=== PATIENT | female | born 1955 ===

== ENCOUNTER 2017-07-09 18:21 | Inpatient (IN) | payer MEDICARE ==
[2017-07-09] MEDS ORDERED: Sodium Chloride 0.9% 1,000 ML IV ONE (18:41)
--- NOTE | 2017-07-09 18:49 | C.PDOC ---
History Of Present Illness 62-year-old female, presents to the emergency department with complaints of abdominal pain, nausea/vomiting and diarrhea x5 days. Patient denies any fevers , chest pain or shortness of breath. Time Seen by Provider: 07/09/17 18:38 Chief Complaint (Nursing): GI Problem History Per: Patient History/Exam Limitations: no limitations Onset/Duration Of Symptoms: Days Current Symptoms Are (Timing): Still Present Severity: Moderate Past Medical History Reviewed: Historical Data, Nursing Documentation, Vital Signs Vital Signs: Last Vital Signs Temp 98.1 F 07/14/17 10:00 Pulse 93 H 07/14/17 10:00 Resp 20 07/14/17 10:00 BP 128/75 07/14/17 10:00 Pulse Ox 96 07/14/17 10:00 - Medical History PMH: Anxiety, Depression, Post Traumatic Stress Disorder Family History: States: No Known Family Hx - Social History Hx Tobacco Use: Yes Hx Alcohol Use: Yes Hx Substance Use: No - Immunization History Hx Tetanus Toxoid Vaccination: No Hx Influenza Vaccination: No Hx Pneumococcal Vaccination: No Review Of Systems Constitutional: Negative for: Fever, Chills Cardiovascular: Negative for: Chest Pain Respiratory: Negative for: Shortness of Breath Gastrointestinal: Positive for: Nausea, Vomiting, Abdominal Pain, Diarrhea Musculoskeletal: Negative for: Back Pain Skin: Negative for: Rash Neurological: Negative for: Weakness, Numbness, Headache, Dizziness Physical Exam - Physical Exam Appears: Non-toxic, No Acute Distress Skin: Warm, Dry, No Rash Head: Normacephalic Eye(s): bilateral: Normal Inspection, PERRL Nose: Normal Oral Mucosa: Moist Lips: Normal Appearing Neck: Normal ROM Cardiovascular: Rhythm Regular, No Murmur Respiratory: Normal Breath Sounds, No Accessory Muscle Use Gastrointestinal/Abdominal: Soft, Tenderness (epigastric), No Guarding, No Rebound Extremity: Normal ROM, No Deformity, No Swelling Neurological/Psych: Oriented x3, Normal Speech ED Course And Treatment - Laboratory Results Result Diagrams: 07/14/17 07:15 07/14/17 07:15 O2 Sat by Pulse Oximetry: 97 (RA) Pulse Ox Interpretation: Normal Medical Decision Making Medical Decision Making: ekg nsr [address] t wave changes 21:45 - pages Dr. Chawla 22:00- Spoke with Dr. Chawla will obs for hypok 22:10 - Spoke with vice president of compliance Disposition - Disposition Disposition: HOSPITALIZED Disposition Time: 02:00 Condition: STABLE - Clinical Impression Clinical Impression: Abdominal pain, Hypokalemia - Scribe Statement The provider has reviewed the documentation as recorded by the Scribe (Chante Pappas) All medical record entries made by the Scribe were at my direction and personally dictated by me. I have reviewed the chart and agree that the record accurately reflects my personal performance of the history, physical exam, medical decision making, and the department course for this patient. I have also personally directed, reviewed, and agree with the discharge instructions and disposition. Decision To Admit - . Admitting Physician: Mary Chawla Patient Diagnosis: Abdominal pain, Hypokalemia
[2017-07-09] MEDS ORDERED: Sodium Chloride 0.9% 1,000 ML ONE (19:11)
[2017-07-09 19:16] LABS: BASO % 0.4 % (0.0-2.0); EOS # 0.1 K/uL (0.0-0.7); EOS % 0.8 % (0.0-4.0); HEMOGLOBIN 15.2 g/dL (11.0-16.0); LYMPH # 2.6 K/uL (1.0-4.3); LYMPH % 21.2 % (20.0-40.0); MEAN CELL VOLUME 103.2 fL (81.0-99.0); MEAN CORPUSCULAR HEMOGLOBIN 36.2 pg (27.0-31.0); MEAN CORPUSCULAR HGB CONC 35.1 g/dL (33.0-37.0); MEAN PLATELET VOLUME 8.7 fL (7.2-11.7); MONO # 1.5 K/uL (0.0-0.8); MONO % 12.4 % (0.0-10.0); NEUT % 65.2 % (50.0-75.0); NRBC % 0.1 % (0.0-2.0); RBC 4.2 Mil/uL (3.80-5.20); RED CELL DISTRIBUTION WIDTH 14.2 % (11.5-14.5); WHITE BLOOD COUNT 12.3 K/uL (4.8-10.8)
[2017-07-09 19:28] LABS: PROTHROMBIN TIME 10.9 SECONDS (9.7-12.2)
[2017-07-09 19:53] LABS: SQUAMOUS EPITHIAL < 1 /hpf (0-5); URINE BILIRUBIN NEGATIVE (NEGATIVE); URINE BLOOD NEGATIVE (NEGATIVE); URINE CLARITY Clear (Clear); URINE COLOR Yellow (YELLOW); URINE GLUCOSE (UA) NORMAL (Normal); URINE LEUKOCYTE ESTERASE NEG Leu/uL (Negative); URINE PROTEIN NEGATIVE (NEGATIVE); URINE UROBILINOGEN NORMAL mg/dL (0.2-1.0)
[2017-07-09 19:55] LABS: ALB/GLOB RATIO 1.2 (1.0-2.1); ALBUMIN 3.6 g/dL (3.5-5.0); ALT/SGPT 51 U/L (9-52); AST/SGOT 66 U/L (14-36); BLOOD UREA NITROGEN 6 mg/dL (7-17); CALCIUM 8.3 mg/dl (8.6-10.4); GFR AFRICAN-AMERICAN > 60; GFR NON-AFRICAN AMERICAN > 60; LIPASE 57 U/L (23-300)
[2017-07-09] MEDS ORDERED: Potassium Chloride 20 mEq ER Tab PO STA (19:59)
[2017-07-09] MEDS ORDERED: Potassium Chloride 20 mEq ER Tab PO ONE (20:05)
--- NOTE | 2017-07-09 21:17 | US ---
EXAM: US Abdomen Complete CLINICAL HISTORY: 62 years old, female; Pain; Abdominal pain; Generalized; Additional info: Upper abd pain TECHNIQUE: Real-time ultrasound of the abdomen (complete) with image documentation. COMPARISON: No relevant prior studies available. FINDINGS: Limitations: Body habitus. Liver: Enlarged, 23.0 cm. Fatty infiltration. No mass. No intrahepatic ductal dilatation. Gallbladder: Gallstones. No wall thickening. No pericholecystic fluid. No sonographic Cottrell's sign. Common bile duct: No dilatation. No stones. Pancreas: Unremarkable as visualized. Kidneys: Normal echogenicity. No hydronephrosis. Spleen: No splenomegaly. Aorta: Unremarkable. No aneurysm. Inferior vena cava: Unremarkable. Free fluid: No significant free fluid. IMPRESSION: 1. Cholelithiasis. 2. Incidental/non-acute findings are described above.
--- NOTE | 2017-07-09 22:48 | CP.PCM.HP ---
History of Present Illness - History of Present Illness History of Present Illness: COMPREHENSIVE HISTORY & PHYSICAL EXAM HPI Patient presented to the hospital with 2 week history of nausea vomiting diarrhea and right upper quadrant pain. Patient was evaluated in the [facility] Emergency Room and the ultrasound shows cholelithiasis with no pericolic fluid. Pancreas was also normal. WBC count was 12,000 and patient was admitted for possible acute cholecystitis Pt has lost 50 pounds in the last 1 year PAST HIST. History of depression and Seroquel. No history of diabetes hypertension. PERSONAL HIST: Smoking. N Alcohol. N Allergy N Travel_- . FAMILY HIST : ROS : Constitutional: Negative for weight change, chills, night sweats, fatigue Eyes : Negative for redness, swelling, itching, discharge, vision changes, blurry vision, double vision, glaucoma, cataracts, Ears: Negative for hearing loss, ringing, , tinnitus, vertigo Nose: Negative for rhinorrhea, stuffiness, sniffing, itching, postnasal drip, discoloration, nasal congestion and epistaxis. Throat: Negative for throat clearing, sore throat, hoarseness, difficulty swallowing and difficulty speaking. Respiratory: Negative for cough, chest tightness, sputum or phlegm, chronic cough, hemoptysis, wheezing, snoring at night, pleuritic chest pain and daytime somnolence. Cardiovascular: Negative for chest pain, palpitations, orthopnea, PND, Edema of legs, leg cramps, angina, claudication, , irregular heartbeat, Neurology: Negative for irritability, muscle weakness, numbness and tingling, seizures, tremors, migraines, slurred speech, syncope, memory loss, mood changes , recurrent headaches Gastrointestinal: Negative for difficulty swallowing, diarrhea, constipation, black stools, rectal bleeding, nausea, flatulence, reflux, poor appetite, changes in bowel habits Genitourinary: Negative for frequent urination, hematuria, discharge, incontinence, urinary retention, frequent UTI, Psychiatric : Negative for depression, anxiety/panic, suicidal tendencies, Musculoskeletal: Negative for swollen joints, back pain, , neck pain, morning stiffness of joints, . Skin: Negative for rash, ulcers, itching, dry skin and pigmented lesions. P/E: Constitutional: Appears stated age and in no apparent distress. Head: Normocephalic. Ears: External ear canals patent without inflammation. Tympanic membranes intact with normal light reflex and landmark. Eyes: Pupils are central, bilaterally equal, symmetrical and reacts to light with normal movements and no icterus or pallor. Nose: External nares are patent. Mucosa is pink Mouth-Throat: Good general appearance and condition. No post-pharyngeal/oropharyngeal erythema and tonsillar hypertrophy. Good dental hygiene. Neck-Lymphatic: Neck is supple with normal ROM, no thyromegaly, lymph nodes or masses. JVD is normal with no carotid bruit. Lungs: Clear to percussion and auscultation with bilateral normal air entry. Cardiovascular: S1 and S2 are normal with no murmurs, gallops and rub. GI Exam: No hepatomegaly. Abdomen is soft and tender. No Organomegaly , masses or hernias are evident and bowel sounds are normal and active. Neurology: Higher function and all cranial nerves intact, with no gross motor or sensory deficit. Superficial and deep reflexes are normal with downwards planters. No cerebellar deficit with normal gait. Musculoskeletal: No tender spots with normal curvature of the spine with no swelling or restricted ROM of the small and large joints. Extremities: Homans sign absent. Intact pulses with no pitting edema, calf tenderness or skin color changes. Skin: No rash, eruptions or abnormal skin pigmentation LAB/RADIOLOGY: ASSESMENT : Rule out acute cholecystitis. loss of weight unintentional Rule out infectious diarrhea Plan: IV fluids and HIDA scan. Surgical evaluation. Past Patient History - Past Social History Smoking Status: Light Smoker < 10 Cigarettes Daily - PSYCHIATRIC Hx Anxiety: Yes Hx Depression: Yes Hx Post Traumatic Stress Disorder: Yes Hx Substance Use: No - ANESTHESIA Hx Anesthesia: No Hx Anesthesia Reactions: No Meds Allergies/Adverse Reactions: Allergies Allergy/AdvReac Type Severity Reaction Status Date / Time shrimp Allergy SWELLING Verified 07/10/17 07:05 Results - Vital Signs Recent Vital Signs: Last Vital Signs Temp 98.6 F 07/09/17 18:28 Pulse 111 H 07/09/17 18:28 Resp 20 07/09/17 18:28 BP 129/90 07/09/17 18:28 Pulse Ox 97 07/09/17 22:21 - Labs Result Diagrams: 07/10/17 11:20 07/10/17 11:20 Labs: Laboratory Results - last 24 hr 07/09/17 07/09/17 07/09/17 19:09 19:09 19:09 WBC 12.3 H RBC 4.20 Hgb 15.2 Hct 43.4 MCV 103.2 H MCH 36.2 H MCHC 35.1 RDW 14.2 Plt Count 256 MPV 8.7 Neut % (Auto) 65.2 Lymph % (Auto) 21.2 [place] % (Auto) 12.4 H Eos % (Auto) 0.8 Baso % (Auto) 0.4 Neut # (Auto) 8.0 H Lymph # (Auto) 2.6 [place] # (Auto) 1.5 H Eos # (Auto) 0.1 Baso # (Auto) 0.0 PT 10.9 INR 1.0 APTT 31 Sodium 136 Potassium 2.5 L* Chloride 93 L Carbon Dioxide 29 Anion Gap 15 BUN 6 L Creatinine 0.5 L Est GFR ( Amer) > 60 Est GFR (Non-Af Amer) > 60 Random Glucose 108 H Calcium 8.3 L Total Bilirubin 1.2 AST 66 H ALT 51 Alkaline Phosphatase 131 H Total Protein 6.5 Albumin 3.6 Globulin 2.9 Albumin/Globulin Ratio 1.2 Lipase 57 Urine Color Urine Clarity Urine pH Ur Specific [place] Urine Protein Urine Glucose (UA) Urine Ketones Urine Blood Urine Nitrate Urine Bilirubin Urine Urobilinogen Ur Leukocyte Esterase Urine WBC (Auto) Ur Squamous Epith Cells 07/09/17 19:45 WBC RBC Hgb Hct MCV MCH MCHC RDW Plt Count MPV Neut % (Auto) Lymph % (Auto) [place] % (Auto) Eos % (Auto) Baso % (Auto) Neut # (Auto) Lymph # (Auto) [place] # (Auto) Eos # (Auto) Baso # (Auto) PT INR APTT Sodium Potassium Chloride Carbon Dioxide Anion Gap BUN Creatinine Est GFR ( Amer) Est GFR (Non-Af Amer) Random Glucose Calcium Total Bilirubin AST ALT Alkaline Phosphatase Total Protein Albumin Globulin Albumin/Globulin Ratio Lipase Urine Color Yellow Urine Clarity Clear Urine pH 7.0 Ur Specific [place] 1.001 L Urine Protein Negative Urine Glucose (UA) Normal Urine Ketones Negative Urine Blood Negative Urine Nitrate Negative Urine Bilirubin Negative Urine Urobilinogen Normal Ur Leukocyte Esterase Neg Urine WBC (Auto) < 1 Ur Squamous Epith Cells < 1
[2017-07-09] MEDS ORDERED: Dextrose 5%/0.45% NS 1,000 ML IV ONE (23:00)
[2017-07-09] MEDS: Dextrose 5%/0.45% NS 1,000 ML IV SCH (23:05)
--- NOTE | 2017-07-09 23:32 | CP.PCM.CON ---
<Angel Luis Fuentes - Last Filed: 07/09/17 23:43> History of Present Illness - History of Present Illness History of Present Illness: General surgery consult for Dr. Andre Pt is a 62 y/o female with a PMH of anxiety and depression who presents with a 5 day history of non radiating epigastric abdominal pain, non- bloody non-bilious vomiting and non-bloody diarrhea without known precipitating incident. She is unable to keep down any foods or liquids without feeling nauseous and then having vomiting with diarrhea at the same time. She reports similar episodes in the past over the last year not lasting more than one day. The onset of overall symptoms is not food related, though her vomiting and diarrhea is exacerbated by food. She reports a decrease in appetite resulting in a 50 pound weight loss over the past year. She denies recent illness as well as fever and chills at home. PMH: Anxiety, Depression PSH: Repair of minscal tear 2015, Appendectomy (Exlap) Meds: Seroquil All: NKDA Social: 1 shot rebecca per night, 6.5 pack years, no drugs Review of Systems - Constitutional Constitutional: Weight Loss. absent: Chills, Fever - EENT Eyes: Blurred Vision - Cardiovascular Cardiovascular: absent: Chest Pain, Palpitations - Respiratory Respiratory: absent: Dyspnea, Hemoptysis - Gastrointestinal Gastrointestinal: Abdominal Pain, Diarrhea, Vomiting. absent: Heartburn, Hematemesis, Hematochezia - Neurological Neurological: Tingling. absent: Dizziness, Numbness - Psychiatric Psychiatric: Anxiety Past Patient History - Past Social History Smoking Status: Light Smoker < 10 Cigarettes Daily Alcohol: < 2 Drinks/Day Drugs: Denies - PSYCHIATRIC Hx Anxiety: Yes Hx Depression: Yes Hx Post Traumatic Stress Disorder: Yes Hx Substance Use: No - ANESTHESIA Hx Anesthesia: No Hx Anesthesia Reactions: No Meds Allergies/Adverse Reactions: Allergies Allergy/AdvReac Type Severity Reaction Status Date / Time shrimp Allergy SWELLING Verified 07/10/17 07:05 - Medications Medications: Current Medications Heparin Sodium (Porcine) (Heparin) 5,000 units SC Q12 [facility] Dextrose/Sodium Chloride (Dextrose 5%/0.45% Ns 1000 Ml) 1,000 mls @ 120 mls/hr IV .Q8H20M [facility] Stop: 07/10/17 22:46 Last Admin: 07/09/17 23:05 Dose: 120 mls/hr Ondansetron HCl (Zofran Inj) 4 mg IVP Q6H PRN PRN Reason: NAUSEA/VOMITTING Quetiapine Fumarate (Seroquel) 100 mg PO HS ÁLVARO Physical Exam - Constitutional Appears: Non-toxic, No Acute Distress - Head Exam Head Exam: ATRAUMATIC, NORMOCEPHALIC - Eye Exam Eye Exam: EOMI, Normal appearance - ENT Exam ENT Exam: Mucous Membranes Moist - Respiratory Exam Respiratory Exam: NORMAL BREATHING PATTERN - Cardiovascular Exam Cardiovascular Exam: +S1, +S2 - GI/Abdominal Exam GI & Abdominal Exam: Normal Bowel Sounds, Soft, Tenderness. absent: Distended, Firm, Guarding, Hernia, Rebound, Rigid - Neurological Exam Neurological exam: Alert, Oriented x3 - Psychiatric Exam Psychiatric exam: Normal Affect, Normal Mood - Skin Skin Exam: Dry, Intact Results - Vital Signs Recent Vital Signs: Last Vital Signs Temp 98.6 F 07/09/17 18:28 Pulse 111 H 07/09/17 18:28 Resp 20 07/09/17 18:28 BP 129/90 07/09/17 18:28 Pulse Ox 97 07/09/17 22:21 - Labs Result Diagrams: 07/09/17 19:09 07/09/17 19:09 Labs: Laboratory Results - last 24 hr 07/09/17 07/09/17 07/09/17 19:09 19:09 19:09 WBC 12.3 H RBC 4.20 Hgb 15.2 Hct 43.4 MCV 103.2 H MCH 36.2 H MCHC 35.1 RDW 14.2 Plt Count 256 MPV 8.7 Neut % (Auto) 65.2 Lymph % (Auto) 21.2 [place] % (Auto) 12.4 H Eos % (Auto) 0.8 Baso % (Auto) 0.4 Neut # (Auto) 8.0 H Lymph # (Auto) 2.6 [place] # (Auto) 1.5 H Eos # (Auto) 0.1 Baso # (Auto) 0.0 PT 10.9 INR 1.0 APTT 31 Sodium 136 Potassium 2.5 L* Chloride 93 L Carbon Dioxide 29 Anion Gap 15 BUN 6 L Creatinine 0.5 L Est GFR ( Amer) > 60 Est GFR (Non-Af Amer) > 60 Random Glucose 108 H Calcium 8.3 L Total Bilirubin 1.2 AST 66 H ALT 51 Alkaline Phosphatase 131 H Total Protein 6.5 Albumin 3.6 Globulin 2.9 Albumin/Globulin Ratio 1.2 Lipase 57 Urine Color Urine Clarity Urine pH Ur Specific [place] Urine Protein Urine Glucose (UA) Urine Ketones Urine Blood Urine Nitrate Urine Bilirubin Urine Urobilinogen Ur Leukocyte Esterase Urine WBC (Auto) Ur Squamous Epith Cells 07/09/17 19:45 WBC RBC Hgb Hct MCV MCH MCHC RDW Plt Count MPV Neut % (Auto) Lymph % (Auto) [place] % (Auto) Eos % (Auto) Baso % (Auto) Neut # (Auto) Lymph # (Auto) [place] # (Auto) Eos # (Auto) Baso # (Auto) PT INR APTT Sodium Potassium Chloride Carbon Dioxide Anion Gap BUN Creatinine Est GFR ( Amer) Est GFR (Non-Af Amer) Random Glucose Calcium Total Bilirubin AST ALT Alkaline Phosphatase Total Protein Albumin Globulin Albumin/Globulin Ratio Lipase Urine Color Yellow Urine Clarity Clear Urine pH 7.0 Ur Specific [place] 1.001 L Urine Protein Negative Urine Glucose (UA) Normal Urine Ketones Negative Urine Blood Negative Urine Nitrate Negative Urine Bilirubin Negative Urine Urobilinogen Normal Ur Leukocyte Esterase Neg Urine WBC (Auto) < 1 Ur Squamous Epith Cells < 1 Assessment & Plan - Assessment and Plan (Free Text) Assessment: 61F with abdominal pain, nausea and vomiting, and cholelithiasis Vital signs stable Gallbladder wall 2mm, CBD 5mm, no pericholecystic fluid, gallstones present AST/ALT 66/51, Alk Phos 131 and lipase 57 Plan: 1. Abdominal flat plate 2. Recommend CT with PO and IV contrast 3. NG tube if nausea and vomiting persist 4. NPO 5. IV fluids 6. Serial abdominal exams 7. Recommend outpatient workup for unexplained weight loss 8. Recommend GI evaluation for possible GERD-like symptoms 9. Will continue to follow d/w Dr. Thai Fuentes <Pollo Andre - Last Filed: 07/11/17 12:57> Meds - Medications Medications: Current Medications Heparin Sodium (Porcine) (Heparin) 5,000 units SC Q12 [facility] Last Admin: 07/11/17 09:19 Dose: Not Given Metronidazole 250 mg/ (Miscellaneous) 50 mls @ 100 mls/hr IVPB Q8 [facility] PRN Reason: Protocol Last Admin: 07/11/17 05:50 Dose: 100 mls/hr Ondansetron HCl (Zofran Inj) 4 mg IVP Q6H PRN PRN Reason: NAUSEA/VOMITTING Last Admin: 07/11/17 11:55 Dose: 4 mg Potassium Chloride (Potassium Chloride Oral Soln) 40 meq PO Q4H ÁLVARO Stop: 07/11/17 15:31 Last Admin: 07/11/17 11:57 Dose: 40 meq Quetiapine Fumarate (Seroquel) 100 mg PO HS ÁLVARO Last Admin: 07/10/17 21:28 Dose: 100 mg Results - Vital Signs Recent Vital Signs: Last Vital Signs Temp 97.7 F 07/11/17 07:01 Pulse 80 07/11/17 07:01 Resp 20 07/11/17 07:01 BP 101/66 07/11/17 07:01 Pulse Ox 95 07/11/17 07:01 - Labs Result Diagrams: 07/10/17 11:20 07/11/17 08:38 Labs: Laboratory Results - last 24 hr 07/10/17 07/11/17 07/11/17 16:49 08:38 08:38 Sodium 143 Potassium 3.1 L Chloride 108 H Carbon Dioxide 28 Anion Gap 10 BUN < 2 L Creatinine 0.5 L Est GFR ( Amer) > 60 Est GFR (Non-Af Amer) > 60 Random Glucose 81 Calcium 8.3 L Magnesium 1.5 L Iron 102 TIBC 221 L % Saturation 46 Ferritin Vitamin B12 Hepatitis A IgM Ab Negative Hep Bs Antigen Negative Hep B Core IgM Ab Negative Hepatitis C Antibody Negative HIV 1&2 Antibody Screen 07/11/17 07/11/17 08:38 08:38 Sodium Potassium Chloride Carbon Dioxide Anion Gap BUN Creatinine Est GFR ( Amer) Est GFR (Non-Af Amer) Random Glucose Calcium Magnesium Iron 88 TIBC 215 L % Saturation Ferritin 383.0 Vitamin B12 > 1000 H Hepatitis A IgM Ab Hep Bs Antigen Hep B Core IgM Ab Hepatitis C Antibody Negative HIV 1&2 Antibody Screen Negative Assessment & Plan - Assessment and Plan (Free Text) Plan: I personally saw and examined the patient independent of the resident staff on and agree with the above assessment and plan while awaiting further imaging studies as above. 62 F with post prandial epigastric pain, started 5 days prior to admission. Pain is dull like pressure sensation, 0/10 at rest, 7/ 10 15-20minutes after meals; associated with nausea, emesis and food aversion. Several episodes of diarrhea as well. Emesis improves pain. Has had similar events in last 10 years, 1x every couple of months, would go away on its own after 24 hours or so. Denies any hx of peptic ulcers, GE reflux, aspiration, or asthma/cough. Does state that she occasional has dysphagia. Never sought medical evaluation. 60 lb weightloss in last 1 year. I personally reviewed all available diagnostic images and reports including, abd US, CT AP, and HIDA scan - Cholelithiasis on US and but no evidence of acute cholecystitis or choledocholithiasis. HIDA scan also normal, ruling out biliary dyskinesia or obstruction. CT scan does show several areas of colitis including right and TV which could be attributing to symptoms. Cont. tx for colitis and advance diet as tolerated. Needs screening colonoscopy and would recommend EGD as well. I discussed with the patient that we have to be sure that the gallbladder is the source of her symptomas before we would consider surgical removal. I also explained that a large percentage of people do have gallstones present, but not all require cholecystectomy. Only those who become symptomatic from the stones should have the gallbladder removed. She understands the treatment plan and will follow up with me as an outpatient AFTER her GI workup is complete. - Date & Time Date: 07/10/17
[2017-07-09] MEDS ORDERED: Lactated Ringer's 1,000 ML IV SCH (23:45)
--- NOTE | 2017-07-10 07:14 | RAD ---
HISTORY: Abdominal Pain COMPARISON: No prior. FINDINGS: BOWEL: Nonobstructive bowel gas pattern appreciated. No demonstrated free intraperitoneal gas. Bowel loops are interposed into the liver in the right hemidiaphragm. No suspicious abnormal intra-abdominal calcifications identified. BONES: Normal. OTHER FINDINGS: None. IMPRESSION: Nonobstructive bowel gas pattern evident. No free intraperitoneal gas demonstrated.
[2017-07-10] MEDS: Dextrose 5%/0.45% NS 1,000 ML IV SCH ×2 (08:11→15:10)
--- NOTE | 2017-07-10 08:26 | CP.PCM.PN ---
Subjective - Date & Time of Evaluation Date of Evaluation: 07/10/17 Time of Evaluation: 06:20 - Subjective Subjective: Surgery- Dr. Andre Patient seen and examined at bedside this AM. complaining of continued nausea, non-bloody non-bilious vomiting, and diarrhea. Currently states no abdominal pain. Of note pt has >30lb unintentional weight loss over the last year. Family hx of IBS. Pt denies having colonoscopy. Denies fevers, chills, chest pain, shortness of breath Objective - Vital Signs/Intake and Output Vital Signs (last 24 hours): Temp Pulse Resp BP Pulse Ox 98.5 F 89 20 101/69 96 07/10/17 01:00 07/10/17 01:00 07/10/17 01:00 07/10/17 01:00 07/10/17 01:00 - Medications Medications: Current Medications Heparin Sodium (Porcine) (Heparin) 5,000 units SC Q12 [facility] Dextrose/Sodium Chloride (Dextrose 5%/0.45% Ns 1000 Ml) 1,000 mls @ 120 mls/hr IV .Q8H20M [facility] Stop: 07/10/17 22:46 Last Admin: 07/10/17 08:11 Dose: 120 mls/hr Ondansetron HCl (Zofran Inj) 4 mg IVP Q6H PRN PRN Reason: NAUSEA/VOMITTING Last Admin: 07/10/17 08:11 Dose: 4 mg Quetiapine Fumarate (Seroquel) 100 mg PO HS [facility] Last Admin: 07/09/17 23:35 Dose: 100 mg - Labs Labs: 07/09/17 19:09 07/09/17 19:09 PT 10.9 SECONDS (9.7-12.2) 07/09/17 19:09 INR 1.0 07/09/17 19:09 APTT 31 SECONDS (21-34) 07/09/17 19:09 - Constitutional Appears: Non-toxic, No Acute Distress - Head Exam Head Exam: ATRAUMATIC - Eye Exam Eye Exam: EOMI. absent: Scleral icterus - ENT Exam ENT Exam: Mucous Membranes Moist - Respiratory Exam Respiratory Exam: NORMAL BREATHING PATTERN. absent: Accessory Muscle Use, Respiratory Distress - Cardiovascular Exam Cardiovascular Exam: +S1, +S2. absent: Bradycardia, Tachycardia - GI/Abdominal Exam GI & Abdominal Exam: Soft. absent: Distended, Firm, Guarding, Rigid, Tenderness Additional comments: Phanenstiel incision C/D/I - Extremities Exam Extremities Exam: Normal Inspection. absent: Calf Tenderness - Neurological Exam Neurological Exam: Alert, Awake, Oriented x3 - Skin Skin Exam: Intact, Warm Assessment and Plan - Assessment and Plan (Free Text) Assessment: 62F w/ abdominal pain, nausea, vomiting, cholelithiasis noted on imaging. Plan: - recommend GI consult- possible EGD/colonoscopy - anti-emetic PRN - CT w/ PO and IV contrast - HIDA in AM - will d/w Dr. Andre surgical attending PGY1
[2017-07-10] MEDS ORDERED: Iohexol 240 (50 ml) PO ONE (10:00)
--- NOTE | 2017-07-10 10:42 | CP.PCM.CON ---
<Mira Andre - Last Filed: 07/10/17 11:54> History of Present Illness - History of Present Illness History of Present Illness: PGY4 Initial Gi Consult Destiny Woodard is a 62F w/ hx of anxiety and depression who presents with a 5 day history of non radiating epigastric abdominal pain, non-bloody non- bilious vomiting and non-bloody diarrhea. Pt states that her onset of symptoms was around 1-2 years ago. She noted that her symptoms were initially intermittent but for the past 3 weeks have progressively worsened. She notes states that her last significant mean was 2 weeks ago. Everytime she ingests any solid or liquid, she notes nausea and immediate vomiting. She has also endorsed diarrhea for the last 3 weeks. She notes thhat it is loose and watery. She has 3-4 BM daily. Denies any melena or BRBPR. She states that she had a 50lb weightloss in the past year. Never had a colonoscopy or endoscopy. Abd u/s revealed cholelithiasis and no CBD chances. PMH: Anxiety, Depression PSH: Repair of minscal tear 2016, Appendectomy 1980s(Exlap) Social: 1 shot rebecca per night, 6.5 pack years, no drugs Family Hx: reviewed; denies any GI related malignancies ROS: 12 point ROS conducted, neg other than above Past Patient History - Past Medical History & Family History Past Medical History?: Yes - Past Social History Smoking Status: Current Some Days Smoker - CARDIAC Hx Cardiac Disorders: No Hx Angina: No Hx Atrial Fibrillation: No Hx Cardia Arrhythmia: No Hx Circulatory Problems: No Hx Congestive Heart Failure: No Hx Heart Attack: No Hx Heart Murmur: No Hx Heart Transplant: No Hx Hypercholesterolemia: No Hx Hypertension: No Hx Hypotension: No Hx Internal Defibrillator: No Hx Mitral Valve Prolapse: No Hx Pacemaker: No Hx Peripheral Edema: No Hx Peripheral Vascular Disease: No - PULMONARY Hx Respiratory Disorders: No - NEUROLOGICAL Hx Neurological Disorder: No - HEENT Hx HEENT Problems: No Other/Comment: Wears Eyeglasses for reading - RENAL Hx Chronic Kidney Disease: No - ENDOCRINE/METABOLIC Hx Endocrine Disorders: No - HEMATOLOGICAL/ONCOLOGICAL Hx Blood Disorders: Yes Hx Anemia: Yes - INTEGUMENTARY Hx Dermatological Problems: No - MUSCULOSKELETAL/RHEUMATOLOGICAL Hx Musculoskeletal Disorders: Yes Hx Falls: No Hx Herniated Disk: Yes (Claimed with 3 herniated disc on the left) - GASTROINTESTINAL Hx Gastrointestinal Disorders: No - GENITOURINARY/GYNECOLOGICAL Hx Genitourinary Disorders: No - PSYCHIATRIC Hx Psychophysiologic Disorder: Yes Hx Anxiety: Yes Hx Depression: Yes Hx Post Traumatic Stress Disorder: Yes Hx Substance Use: No - SURGICAL HISTORY Hx Surgeries: Yes Hx Arteriovenous Shunt: Yes () Hx Orthopedic Surgery: Yes (Torn meniscus R foot) - ANESTHESIA Hx Anesthesia: Yes Hx Anesthesia Reactions: No Hx Malignant Hyperthermia: No Has any member of the family had a problem w/ anesthesia?: No Meds Allergies/Adverse Reactions: Allergies Allergy/AdvReac Type Severity Reaction Status Date / Time shrimp Allergy SWELLING Verified 07/10/17 07:05 - Medications Medications: Current Medications Heparin Sodium (Porcine) (Heparin) 5,000 units SC Q12 [facility] Dextrose/Sodium Chloride (Dextrose 5%/0.45% Ns 1000 Ml) 1,000 mls @ 120 mls/hr IV .Q8H20M [facility] Stop: 07/10/17 22:46 Last Admin: 07/10/17 08:11 Dose: 120 mls/hr Ondansetron HCl (Zofran Inj) 4 mg IVP Q6H PRN PRN Reason: NAUSEA/VOMITTING Last Admin: 07/10/17 08:11 Dose: 4 mg Quetiapine Fumarate (Seroquel) 100 mg PO HS [facility] Last Admin: 07/09/17 23:35 Dose: 100 mg Physical Exam - Constitutional Appears: Well, No Acute Distress - Head Exam Head Exam: ATRAUMATIC, NORMOCEPHALIC - Eye Exam Eye Exam: Normal appearance - ENT Exam ENT Exam: Mucous Membranes Moist, Normal Exam - Neck Exam Neck exam: Positive for: Normal Inspection - Respiratory Exam Respiratory Exam: Clear to Auscultation Bilateral, NORMAL BREATHING PATTERN. absent: Rales, Rhonchi, Wheezes, Respiratory Distress - Cardiovascular Exam Cardiovascular Exam: REGULAR RHYTHM, +S1, +S2 - GI/Abdominal Exam GI & Abdominal Exam: Normal Bowel Sounds, Soft, Tenderness (epugastric). absent : Diminished Bowel Sounds, Distended, Firm, Guarding, Organomegaly, Rebound, Rigid - Extremities Exam Extremities exam: Negative for: joint swelling, pedal edema - Back Exam Back exam: NORMAL INSPECTION - Neurological Exam Neurological exam: Alert, Oriented x3 - Psychiatric Exam Psychiatric exam: Normal Affect, Normal Mood - Skin Skin Exam: Dry, Intact, Normal Color, Warm Results - Vital Signs Recent Vital Signs: Last Vital Signs Temp 98.2 F 07/10/17 09:16 Pulse 84 07/10/17 09:16 Resp 20 07/10/17 09:16 BP 100/85 07/10/17 09:16 Pulse Ox 95 07/10/17 09:16 - Labs Result Diagrams: 07/10/17 11:20 07/09/17 19:09 Labs: Laboratory Results - last 24 hr 07/09/17 07/09/17 07/09/17 19:09 19:09 19:09 WBC 12.3 H RBC 4.20 Hgb 15.2 Hct 43.4 MCV 103.2 H MCH 36.2 H MCHC 35.1 RDW 14.2 Plt Count 256 MPV 8.7 Neut % (Auto) 65.2 Lymph % (Auto) 21.2 Trinity % (Auto) 12.4 H Eos % (Auto) 0.8 Baso % (Auto) 0.4 Neut # (Auto) 8.0 H Lymph # (Auto) 2.6 Trinity # (Auto) 1.5 H Eos # (Auto) 0.1 Baso # (Auto) 0.0 PT 10.9 INR 1.0 APTT 31 Sodium 136 Potassium 2.5 L* Chloride 93 L Carbon Dioxide 29 Anion Gap 15 BUN 6 L Creatinine 0.5 L Est GFR ( Amer) > 60 Est GFR (Non-Af Amer) > 60 Random Glucose 108 H Calcium 8.3 L Total Bilirubin 1.2 AST 66 H ALT 51 Alkaline Phosphatase 131 H Total Protein 6.5 Albumin 3.6 Globulin 2.9 Albumin/Globulin Ratio 1.2 Lipase 57 Urine Color Urine Clarity Urine pH Ur Specific [place] Urine Protein Urine Glucose (UA) Urine Ketones Urine Blood Urine Nitrate Urine Bilirubin Urine Urobilinogen Ur Leukocyte Esterase Urine WBC (Auto) Ur Squamous Epith Cells 07/09/17 19:45 WBC RBC Hgb Hct MCV MCH MCHC RDW Plt Count MPV Neut % (Auto) Lymph % (Auto) Trinity % (Auto) Eos % (Auto) Baso % (Auto) Neut # (Auto) Lymph # (Auto) Trinity # (Auto) Eos # (Auto) Baso # (Auto) PT INR APTT Sodium Potassium Chloride Carbon Dioxide Anion Gap BUN Creatinine Est GFR ( Amer) Est GFR (Non-Af Amer) Random Glucose Calcium Total Bilirubin AST ALT Alkaline Phosphatase Total Protein Albumin Globulin Albumin/Globulin Ratio Lipase Urine Color Yellow Urine Clarity Clear Urine pH 7.0 Ur Specific [place] 1.001 L Urine Protein Negative Urine Glucose (UA) Normal Urine Ketones Negative Urine Blood Negative Urine Nitrate Negative Urine Bilirubin Negative Urine Urobilinogen Normal Ur Leukocyte Esterase Neg Urine WBC (Auto) < 1 Ur Squamous Epith Cells < 1 Assessment & Plan - Assessment and Plan (Free Text) Assessment: Destiny Woodard is a 62F w/ hx of anxiety and depression who presents with a 5 day history of non radiating epigastric abdominal pain, non-bloody non- bilious vomiting and non-bloody diarrhea. Intractable nausea and vomiting, etiology unknown; ddx: infectious, inflammatory , psychogenic, PUD Diarrhea; r/o infectous etiology Weight loss Loss of appetite Abd pain Plan: -waiting on CT abd/pelv -continue zofran -Continue PPI PO 40mg daily -once cleared by surgery, can restart diet -start with clear diet and advance as tolerated -r/o c.diff, ova &para, stool electrolytes -stool cultures -will need an EGD and colonoscopy, but can be done as an oupt pending CT Abd -rest of care as per primary D/W Dr. Otero <Emler Otero - Last Filed: 07/10/17 12:16> Meds - Medications Medications: Current Medications Heparin Sodium (Porcine) (Heparin) 5,000 units SC Q12 [facility] Last Admin: 07/10/17 10:48 Dose: Not Given Dextrose/Sodium Chloride (Dextrose 5%/0.45% Ns 1000 Ml) 1,000 mls @ 120 mls/hr IV .Q8H20M [facility] Stop: 07/10/17 22:46 Last Admin: 07/10/17 08:11 Dose: 120 mls/hr Potassium Chloride (Potassium Chloride 20 Meq/100 Ml) 20 meq in 100 mls @ 50 mls/hr IVPB Q2 [facility] Stop: 07/10/17 19:59 Ondansetron HCl (Zofran Inj) 4 mg IVP Q6H PRN PRN Reason: NAUSEA/VOMITTING Last Admin: 07/10/17 08:11 Dose: 4 mg Quetiapine Fumarate (Seroquel) 100 mg PO HS [facility]O Last Admin: 07/09/17 23:35 Dose: 100 mg Results - Vital Signs Recent Vital Signs: Last Vital Signs Temp 98.2 F 07/10/17 09:16 Pulse 84 07/10/17 09:16 Resp 20 07/10/17 09:16 BP 100/85 07/10/17 09:16 Pulse Ox 95 07/10/17 09:16 - Labs Result Diagrams: 07/10/17 11:20 07/10/17 11:20 Labs: Laboratory Results - last 24 hr 07/09/17 07/09/17 07/09/17 19:09 19:09 19:09 WBC 12.3 H RBC 4.20 Hgb 15.2 Hct 43.4 MCV 103.2 H MCH 36.2 H MCHC 35.1 RDW 14.2 Plt Count 256 MPV 8.7 Neut % (Auto) 65.2 Lymph % (Auto) 21.2 Trinity % (Auto) 12.4 H Eos % (Auto) 0.8 Baso % (Auto) 0.4 Neut # (Auto) 8.0 H Lymph # (Auto) 2.6 Trinity # (Auto) 1.5 H Eos # (Auto) 0.1 Baso # (Auto) 0.0 PT 10.9 INR 1.0 APTT 31 Sodium 136 Potassium 2.5 L* Chloride 93 L Carbon Dioxide 29 Anion Gap 15 BUN 6 L Creatinine 0.5 L Est GFR ( Amer) > 60 Est GFR (Non-Af Amer) > 60 Random Glucose 108 H Calcium 8.3 L Total Bilirubin 1.2 AST 66 H ALT 51 Alkaline Phosphatase 131 H Total Protein 6.5 Albumin 3.6 Globulin 2.9 Albumin/Globulin Ratio 1.2 Lipase 57 Urine Color Urine Clarity Urine pH Ur Specific [place] Urine Protein Urine Glucose (UA) Urine Ketones Urine Blood Urine Nitrate Urine Bilirubin Urine Urobilinogen Ur Leukocyte Esterase Urine WBC (Auto) Ur Squamous Epith Cells 07/09/17 07/10/17 07/10/17 19:45 11:20 11:20 WBC 8.6 RBC 3.51 L Hgb 12.6 D Hct 36.8 MCV 104.7 H MCH 36.0 H MCHC 34.4 RDW 14.1 Plt Count 221 MPV 8.9 Neut % (Auto) 49.5 L Lymph % (Auto) 36.0 Trinity % (Auto) 11.7 H Eos % (Auto) 1.4 Baso % (Auto) 1.4 Neut # (Auto) 4.3 Lymph # (Auto) 3.1 Trinity # (Auto) 1.0 H Eos # (Auto) 0.1 Baso # (Auto) 0.1 PT INR APTT Sodium 142 Potassium 2.7 L Chloride 104 Carbon Dioxide 30 Anion Gap 11 BUN 3 L Creatinine 0.5 L Est GFR ( Amer) > 60 Est GFR (Non-Af Amer) > 60 Random Glucose 102 Calcium 8.1 L Total Bilirubin 0.9 AST 60 H ALT 40 Alkaline Phosphatase 97 Total Protein 5.6 L Albumin 2.8 L D Globulin 2.7 Albumin/Globulin Ratio 1.0 Lipase Urine Color Yellow Urine Clarity Clear Urine pH 7.0 Ur Specific [place] 1.001 L Urine Protein Negative Urine Glucose (UA) Normal Urine Ketones Negative Urine Blood Negative Urine Nitrate Negative Urine Bilirubin Negative Urine Urobilinogen Normal Ur Leukocyte Esterase Neg Urine WBC (Auto) < 1 Ur Squamous Epith Cells < 1 Attending/Attestation - Attestation I have personally seen and examined this patient.: Yes I have fully participated in the care of the patient.: Yes I have reviewed all pertinent clinical information: Yes Notes (Text): 07/10/17 12:09 I have seen and examined patient with GI fellow. Agree with above documentation with the following additions. In brief, this is a 62 year old female with history of depression who presents to hospital with complaint of abdominal pain, vomiting, diarrhea for the past one week. She endorses intermittent similar symptoms for the past 1 year, episodes typically resolve after 1-2 days however this recent episode has lasted longer. She notes almost immediate nausea and vomiting after consumption of solid or liquid food along with multiple bouts of non-bloody diarrhea up to 3 times daily. She denies fever/chills, recent travel, sick contacts, or recent antibiotic use. She does endorse nearly 50 pound weight loss unintentional over the course of the past one year. No prior endoscopic evaluation. Review of vitals from today are normal. Depression Abdominal pain, nausea, vomiting, diarrhea Weight loss, unintentional - Liquid diet as tolerated - Obtain stool studies (culture, O/P, c-difficile) - Continue with PPI therapy, supportive care - Obtain CT imaging for further evaluation given ongoing symptoms with unexplained weight loss, rule out mass lesion - Patient would eventually benefit from EGD/colonoscopy evaluation, will likely arrange as outpatient pending patient clinical progress. Will continue to monitor patient clinical course.
--- NOTE | 2017-07-10 10:57 | NM ---
PROCEDURE: Nuclear Medicine Hepatobiliary Scan HISTORY: CHOLECYSTITIS COMPARISON: July 09, 2017. Abdominal ultrasound documenting cholelithiasis. TECHNIQUE: 5.4 mCi of technetium 99m Mebrofenin was administered intravenously. Planar images of the abdomen were obtained at 5 min intervals to 60 mins. Delayed images were also obtained. FINDINGS: LIVER: Timely and homogenous uptake. COMMON BILE DUCT: identified at 15 mins. GALLBLADDER: identified at 15 mins. SMALL BOWEL: Identified at 20 mins. IMPRESSION: Normal Hepatobiliary Scan. The cystic duct is patent.
[2017-07-10 11:39] LABS: BASO # 0.1 K/uL (0.0-0.2); BASO % 1.4 % (0.0-2.0); EOS # 0.1 K/uL (0.0-0.7); EOS % 1.4 % (0.0-4.0); LYMPH # 3.1 K/uL (1.0-4.3); MEAN CELL VOLUME 104.7 fL (81.0-99.0); MEAN CORPUSCULAR HGB CONC 34.4 g/dL (33.0-37.0); MEAN PLATELET VOLUME 8.9 fL (7.2-11.7); MONO % 11.7 % (0.0-10.0); NEUT # 4.3 K/uL (1.8-7.0); NEUT % 49.5 % (50.0-75.0); NRBC % 0.1 % (0.0-2.0); RBC 3.51 Mil/uL (3.80-5.20); RED CELL DISTRIBUTION WIDTH 14.1 % (11.5-14.5); WHITE BLOOD COUNT 8.6 K/uL (4.8-10.8)
[2017-07-10 11:47] LABS: HEMOGLOBIN 12.6 g/dL (11.0-16.0)
[2017-07-10 11:55] LABS: ALBUMIN 2.8 g/dL (3.5-5.0); ALT/SGPT 40 U/L (9-52); AST/SGOT 60 U/L (14-36); BLOOD UREA NITROGEN 3 mg/dL (7-17); CALCIUM 8.1 mg/dl (8.6-10.4); GFR AFRICAN-AMERICAN > 60; GFR NON-AFRICAN AMERICAN > 60
[2017-07-10] MEDS ORDERED: Iodixanol 320 MG/ML 100 ML BOTTLE IV ONE (11:59)
--- NOTE | 2017-07-10 13:38 | CT ---
PROCEDURE: CT Abdomen and Pelvis with contrast HISTORY: ABD pain COMPARISON: None. TECHNIQUE: Following oral and intravenous contrast administration, a CT examination of the abdomen and pelvis performed from the domes of the diaphragms to the symphysis pubis with reformatted datasets provided not only axial but also sagittal and coronal series. Contrast dose: Visipaque 320, 100 cc Radiation dose: Total exam DLP = 542.29 mGy-cm. This CT exam was performed using one or more of the following dose reduction techniques: Automated exposure control, adjustment of the mA and/or kV according to patient size, and/or use of iterative reconstruction technique. FINDINGS: LOWER THORAX: Limited emphysematous changes are identified at the bilateral bases with small hiatal hernia identified. LIVER: Delivers diffusely diminished in attenuation however the distribution of diminished attenuation is heterogeneous including hepatic primary cisterns surrounding the ligamentum venosus extending medially and cephalad towards the dome. This is a somewhat unusual distribution extending toward the dome in particular, an although no distinct lesion is seen sonographically on prior abdomen ultrasound 07/09/2017, MRI without contrast is advised for further characterization of the liver. No intrahepatic biliary tree dilatation is appreciated. GALLBLADDER AND BILE DUCTS: Unremarkable. PANCREAS: Unremarkable. No gross lesion or ductal dilatation. SPLEEN: Unremarkable. ADRENALS: Unremarkable. No mass. KIDNEYS AND URETERS: A 2.2 cm cyst seen at the upper pole right kidney with the bilateral kidneys otherwise unremarkable. VASCULATURE: Unremarkable. No aortic aneurysm. BOWEL: No bowel obstruction is identified with a small bowel loops appear diffusely unremarkable. There is thickening of the cecum and ascending colon as well as proximal transverse colon suspicious for segmental colitis although no local diverticular or associated. Borderline local pericolic changes are identified however. No abscess or free air is identified. Consider infectious or inflammatory causes though other etiologies are possible. APPENDIX: Not identified. PERITONEUM: Partial pericolic reaction related to the ascending colon proximal transverse segment. No ascites or free air. LYMPH NODES: Unremarkable. No enlarged lymph nodes. BLADDER: Unremarkable. REPRODUCTIVE: Unremarkable. BONES: No acute fracture. OTHER FINDINGS: None. IMPRESSION: Findings suspicious for mild segmental colitis at the right hemicolon and transverse segment proximally. No abscess or free intrarenal gas associated. Heterogeneous fatty infiltration is favored over underlying mass typically at the central liver however follow-up MRI is advised with and without contrast to exclude potential underlying lesion here as the pattern of fatty infiltration appears atypical.
--- NOTE | 2017-07-10 14:10 | CP.PCM.CON ---
History of Present Illness - History of Present Illness History of Present Illness: INFECTIOUS DISEASE CONSULT; HPI Pt is a 62 y/o female with a PMH of anxiety and depression who presents with a 5 day history of non radiating epigastric abdominal pain, non- bloody non-bilious vomiting and non-bloody diarrhea without known precipitating incident. She is unable to keep down any foods or liquids without feeling nauseous and then having vomiting with diarrhea at the same time. She reports similar episodes in the past over the last year not lasting more than one day. The onset of overall symptoms is not food related, though her vomiting and diarrhea is exacerbated by food. She reports a decrease in appetite resulting in a 50 pound weight loss over the past year. She denies recent illness as well as fever and chills at home. ULTRASOUND IN THE EMERGENCY ROOM SHOWED CHOLELITHIASIS WITH NO PERICOLIC FLUID AND PANCREAS WAS FOUND TO BE NORMAL. pATIENT UNDERWENT CT OF THE ABDOMEN AND PELVIS WITH BY MOUTH AND iv CONTRAST WHICH SHOWS COLITIS FROM THE CECUM TO THE ASCENDING COLON AND TRANSVERSE COLON ( SEE FULL REPORT ) ALSO QUESTIONABLE LIVER LESION WITH SUGGESTION OF MRI BY RADIOLOGY. HIDA SCAN WAS NORMAL. INFECTIOUS DISEASE CONSULTATION REQUESTED PMD FOR EVALUATION OF DIARRHEA WITH WEIGHT LOSS PATIENT DENIES ANY RECENT TRAVEL OR SICK CONTACTS. PMH: Anxiety, Depression PSH: Repair of minscal tear 2016, Appendectomy 1980s(Exlap) Meds: Seroquil All: NKDA Social: 1 shot rebecca per night, 6.5 pack years, no drugs family history; sister had ca of the breast. Review of Systems - Constitutional Constitutional: Weight Loss. absent: Chills, Fever Additional comments: 50lbs x 1yr. - EENT Eyes: absent: Floaters Nose/Mouth/Throat: absent: Mouth Lesions - Cardiovascular Cardiovascular: absent: Chest Pain, Dyspnea - Respiratory Respiratory: absent: Cough, Hemoptysis - Gastrointestinal Gastrointestinal: Abdominal Pain, Change in Bowel Habits, Cramping, Diarrhea, Early Satiety, Nausea, Vomiting. absent: Melena - Genitourinary Genitourinary: absent: Dysuria, Freq UTI, Hx Renal/Bladder Calculi - Musculoskeletal Musculoskeletal: absent: Arthralgias - Integumentary Integumentary: absent: Rash, Unusual Bruising - Psychiatric Psychiatric: Depression - Hematologic/Lymphatic Hematologic: As Per HPI. absent: Easy Bruising, Lymphadenopathy Past Patient History - Past Medical History & Family History Past Medical History?: Yes - Past Social History Smoking Status: Current Some Days Smoker - CARDIAC Hx Cardiac Disorders: No Hx Angina: No Hx Atrial Fibrillation: No Hx Cardia Arrhythmia: No Hx Circulatory Problems: No Hx Congestive Heart Failure: No Hx Heart Attack: No Hx Heart Murmur: No Hx Heart Transplant: No Hx Hypercholesterolemia: No Hx Hypertension: No Hx Hypotension: No Hx Internal Defibrillator: No Hx Mitral Valve Prolapse: No Hx Pacemaker: No Hx Peripheral Edema: No Hx Peripheral Vascular Disease: No - PULMONARY Hx Respiratory Disorders: No - NEUROLOGICAL Hx Neurological Disorder: No - HEENT Hx HEENT Problems: No Other/Comment: Wears Eyeglasses for reading - RENAL Hx Chronic Kidney Disease: No - ENDOCRINE/METABOLIC Hx Endocrine Disorders: No - HEMATOLOGICAL/ONCOLOGICAL Hx Blood Disorders: Yes Hx Anemia: Yes - INTEGUMENTARY Hx Dermatological Problems: No - MUSCULOSKELETAL/RHEUMATOLOGICAL Hx Musculoskeletal Disorders: Yes Hx Falls: No Hx Herniated Disk: Yes (Claimed with 3 herniated disc on the left) - GASTROINTESTINAL Hx Gastrointestinal Disorders: No - GENITOURINARY/GYNECOLOGICAL Hx Genitourinary Disorders: No - PSYCHIATRIC Hx Psychophysiologic Disorder: Yes Hx Anxiety: Yes Hx Depression: Yes Hx Post Traumatic Stress Disorder: Yes Hx Substance Use: No - SURGICAL HISTORY Hx Surgeries: Yes Hx Arteriovenous Shunt: Yes () Hx Orthopedic Surgery: Yes (Torn meniscus R foot) - ANESTHESIA Hx Anesthesia: Yes Hx Anesthesia Reactions: No Hx Malignant Hyperthermia: No Has any member of the family had a problem w/ anesthesia?: No Meds Allergies/Adverse Reactions: Allergies Allergy/AdvReac Type Severity Reaction Status Date / Time shrimp Allergy SWELLING Verified 07/10/17 07:05 - Medications Medications: Current Medications Heparin Sodium (Porcine) (Heparin) 5,000 units SC Q12 [facility] Last Admin: 07/10/17 10:48 Dose: Not Given Dextrose/Sodium Chloride (Dextrose 5%/0.45% Ns 1000 Ml) 1,000 mls @ 120 mls/hr IV .Q8H20M [facility] Stop: 07/10/17 22:46 Last Admin: 07/10/17 08:11 Dose: 120 mls/hr Potassium Chloride (Potassium Chloride 20 Meq/100 Ml) 20 meq in 100 mls @ 50 mls/hr IVPB Q2 [facility] Stop: 07/10/17 19:59 Last Admin: 07/10/17 12:12 Dose: 50 mls/hr Ondansetron HCl (Zofran Inj) 4 mg IVP Q6H PRN PRN Reason: NAUSEA/VOMITTING Last Admin: 07/10/17 08:11 Dose: 4 mg Quetiapine Fumarate (Seroquel) 100 mg PO HS [facility] Last Admin: 07/09/17 23:35 Dose: 100 mg Physical Exam - Constitutional Appears: No Acute Distress - Head Exam Head Exam: NORMAL INSPECTION - Eye Exam Eye Exam: EOMI, PERRL - ENT Exam ENT Exam: Normal Oropharynx - Neck Exam Neck exam: Positive for: Normal Inspection - Respiratory Exam Respiratory Exam: Clear to Auscultation Bilateral - Cardiovascular Exam Cardiovascular Exam: REGULAR RHYTHM, +S1, +S2 - GI/Abdominal Exam GI & Abdominal Exam: Normal Bowel Sounds, Soft, Tenderness (epigastric /mid abdomen) - Extremities Exam Extremities exam: Positive for: normal capillary refill, pedal pulses present. Negative for: calf tenderness, pedal edema - Neurological Exam Neurological exam: Alert, CN II-XII Intact, Reflexes Normal - Psychiatric Exam Psychiatric exam: Normal Mood - Skin Skin Exam: Normal Color, Warm Results - Vital Signs Recent Vital Signs: Last Vital Signs Temp 98.2 F 07/10/17 09:16 Pulse 84 07/10/17 09:16 Resp 20 07/10/17 09:16 BP 100/85 07/10/17 09:16 Pulse Ox 95 07/10/17 09:16 - Labs Result Diagrams: 07/10/17 11:20 07/12/17 14:01 Labs: Laboratory Results - last 24 hr 07/09/17 07/09/17 07/09/17 19:09 19:09 19:09 WBC 12.3 H RBC 4.20 Hgb 15.2 Hct 43.4 MCV 103.2 H MCH 36.2 H MCHC 35.1 RDW 14.2 Plt Count 256 MPV 8.7 Neut % (Auto) 65.2 Lymph % (Auto) 21.2 Gates % (Auto) 12.4 H Eos % (Auto) 0.8 Baso % (Auto) 0.4 Neut # (Auto) 8.0 H Lymph # (Auto) 2.6 Gates # (Auto) 1.5 H Eos # (Auto) 0.1 Baso # (Auto) 0.0 PT 10.9 INR 1.0 APTT 31 Sodium 136 Potassium 2.5 L* Chloride 93 L Carbon Dioxide 29 Anion Gap 15 BUN 6 L Creatinine 0.5 L Est GFR ( Amer) > 60 Est GFR (Non-Af Amer) > 60 Random Glucose 108 H Calcium 8.3 L Magnesium Total Bilirubin 1.2 AST 66 H ALT 51 Alkaline Phosphatase 131 H Total Protein 6.5 Albumin 3.6 Globulin 2.9 Albumin/Globulin Ratio 1.2 Lipase 57 Urine Color Urine Clarity Urine pH Ur Specific [place] Urine Protein Urine Glucose (UA) Urine Ketones Urine Blood Urine Nitrate Urine Bilirubin Urine Urobilinogen Ur Leukocyte Esterase Urine WBC (Auto) Ur Squamous Epith Cells 07/09/17 07/10/17 07/10/17 19:45 11:20 11:20 WBC 8.6 RBC 3.51 L Hgb 12.6 D Hct 36.8 MCV 104.7 H MCH 36.0 H MCHC 34.4 RDW 14.1 Plt Count 221 MPV 8.9 Neut % (Auto) 49.5 L Lymph % (Auto) 36.0 Gates % (Auto) 11.7 H Eos % (Auto) 1.4 Baso % (Auto) 1.4 Neut # (Auto) 4.3 Lymph # (Auto) 3.1 Gates # (Auto) 1.0 H Eos # (Auto) 0.1 Baso # (Auto) 0.1 PT INR APTT Sodium 142 Potassium 2.7 L Chloride 104 Carbon Dioxide 30 Anion Gap 11 BUN 3 L Creatinine 0.5 L Est GFR ( Amer) > 60 Est GFR (Non-Af Amer) > 60 Random Glucose 102 Calcium 8.1 L Magnesium 1.4 L Total Bilirubin 0.9 AST 60 H ALT 40 Alkaline Phosphatase 97 Total Protein 5.6 L Albumin 2.8 L D Globulin 2.7 Albumin/Globulin Ratio 1.0 Lipase Urine Color Yellow Urine Clarity Clear Urine pH 7.0 Ur Specific [place] 1.001 L Urine Protein Negative Urine Glucose (UA) Normal Urine Ketones Negative Urine Blood Negative Urine Nitrate Negative Urine Bilirubin Negative Urine Urobilinogen Normal Ur Leukocyte Esterase Neg Urine WBC (Auto) < 1 Ur Squamous Epith Cells < 1 - Imaging and Cardiology US - abdomen Status: Report reviewed by me (+ve gallstone) Assessment & Plan (1) Abdominal pain Status: Acute (2) Abdominal pain, vomiting, and diarrhea Assessment and Plan: pancultures Diarrhea workup as ordered by GI. HIV-1 and 2 antibody screen Hepatitis A, B, and C screen Lymphocyte subset studies. Vitamin B12, iron, TIBC, serum ferritin. Stool for C. difficile toxin, Giardia antigen, cryptosporidiosis antigen Start IV Flagyl 250 mg IV piggyback every 8 hourly. Agree with GI, will need full workup including EGD, colonoscopy and biopsies rule out infectious versus infiltrative bowel disease vs malabsorption syndrome. CONTACT PRECAUTIONS FOR NOW. Status: Acute (3) Weight loss, abnormal Assessment and Plan: DIARRHEA WORKUP IN PROGRESS. Status: Acute (4) Depression Assessment and Plan: PATIENT ON SERAQUIL "100 MG BY MOUTH ONCE A DAY DAILY. Status: Acute (5) Gallstones Assessment and Plan: HIDA scan negative. Status: Acute
--- NOTE | 2017-07-10 14:14 | CP.PCM.PN ---
Subjective - Date & Time of Evaluation Date of Evaluation: 07/10/17 Time of Evaluation: 14:14 - Subjective Subjective: CHIEF COMPLAINTS TODAY : Patient is still nauseous and vomiting with abdominal pain. Potassium is still low at 2.7 ROS. HEENT : N. Resp : No cough, wheezing ,pleuritic CP ,or hemoptysis Cardio : No anginal CP, PND, orthopnea, palpitation GI : No GI bleeding . 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 Musculoskel : No joint swelling , Derm : No rash Psych : Normal affect. Ext : No swelling ,calf pain PE. Pt. is alert awake in no distress. V.S As noted in the chart Head ,ear nose,throat and eyes : Normal. Neck : Supple with normal carotids. Lungs: Clear air entry. Heart : S1 & S2 normal with S4. No murmur. Abd : Soft tender with normal bowel sounds. Neuro : Moves all ext. with no localized deficit. Ext : No edema with intact pulses.Non tender calves Derm : No rashes or decubitus ulcer. LABS/RADIOLOGY: HIDA scan is negative for cystic duct obstruction. CT scan of the abdomen shows heterogenous uptake of radionuclide of unknown etiology ASSESSMENT/PLAN : Continue IV fluids and potassium supplement GI and ID evaluation noted May need MRI of the liver Objective - Vital Signs/Intake and Output Vital Signs (last 24 hours): Temp Pulse Resp BP Pulse Ox 98.2 F 84 20 100/85 95 07/10/17 09:16 07/10/17 09:16 07/10/17 09:16 07/10/17 09:16 07/10/17 09:16 - Medications Medications: Current Medications Heparin Sodium (Porcine) (Heparin) 5,000 units SC Q12 [facility] Last Admin: 07/10/17 10:48 Dose: Not Given Dextrose/Sodium Chloride (Dextrose 5%/0.45% Ns 1000 Ml) 1,000 mls @ 120 mls/hr IV .Q8H20M [facility] Stop: 07/10/17 22:46 Last Admin: 07/10/17 08:11 Dose: 120 mls/hr Potassium Chloride (Potassium Chloride 20 Meq/100 Ml) 20 meq in 100 mls @ 50 mls/hr IVPB Q2 [facility] Stop: 07/10/17 19:59 Last Admin: 07/10/17 12:12 Dose: 50 mls/hr Ondansetron HCl (Zofran Inj) 4 mg IVP Q6H PRN PRN Reason: NAUSEA/VOMITTING Last Admin: 07/10/17 08:11 Dose: 4 mg Quetiapine Fumarate (Seroquel) 100 mg PO HS [facility] Last Admin: 07/09/17 23:35 Dose: 100 mg - Labs Labs: 07/10/17 11:20 07/10/17 11:20 PT 10.9 SECONDS (9.7-12.2) 07/09/17 19:09 INR 1.0 07/09/17 19:09 APTT 31 SECONDS (21-34) 07/09/17 19:09
[2017-07-10 17:04] LABS: IRON 102 ug/dL (37-170)
[2017-07-10 17:14] LABS: % IRON SATURATION 46 (20-55); TOTAL IRON BINDING CAPACITY 221 ug/dL (250-450)
[2017-07-11] MEDS: metroNIDAZOLE IV 500 mg/100 ml 250 MG in Premixed IV 1 EA IVPB SCH ×4 (00:01→21:08)
--- NOTE | 2017-07-11 02:48 | CARD ---
APPROVED REPORT EKG Measurement Heart [id number] <Conclusion> Normal sinus rhythm Low voltage QRS Nonspecific T wave abnormality Abnormal ECG
--- NOTE | 2017-07-11 07:36 | CP.PCM.PN ---
Subjective - Date & Time of Evaluation Date of Evaluation: 07/11/17 Time of Evaluation: 07:35 - Subjective Subjective: General surgey progress note for Dr. Michael Bedoya, PGY-1 Pt S & E at bedside at 0650 Pt reports her abdominal pain has resolved, reports some diarrhea. Is concerned about her gallstones and potential gallbladder surgery-explained that it can be done electively after she gets a colonoscopy with GI. Denies N & V. Objective - Vital Signs/Intake and Output Vital Signs (last 24 hours): Temp Pulse Resp BP Pulse Ox 98.4 F 88 20 97/66 L 95 07/10/17 23:40 07/10/17 23:40 07/10/17 23:40 07/10/17 23:40 07/10/17 23:40 Intake and Output: 07/11/17 07/11/17 06:59 18:59 Intake Total 900 Balance 900 - Medications Medications: Current Medications Heparin Sodium (Porcine) (Heparin) 5,000 units SC Q12 [facility] Last Admin: 07/10/17 22:49 Dose: Not Given Metronidazole 250 mg/ (Miscellaneous) 50 mls @ 100 mls/hr IVPB Q8 [facility] PRN Reason: Protocol Last Admin: 07/11/17 05:50 Dose: 100 mls/hr Ondansetron HCl (Zofran Inj) 4 mg IVP Q6H PRN PRN Reason: NAUSEA/VOMITTING Last Admin: 07/10/17 08:11 Dose: 4 mg Quetiapine Fumarate (Seroquel) 100 mg PO HS [facility] Last Admin: 07/10/17 21:28 Dose: 100 mg - Labs Labs: 07/10/17 11:20 07/10/17 11:20 PT 10.9 SECONDS (9.7-12.2) 07/09/17 19:09 INR 1.0 07/09/17 19:09 APTT 31 SECONDS (21-34) 07/09/17 19:09 - Constitutional Appears: Non-toxic, No Acute Distress - Head Exam Head Exam: ATRAUMATIC, NORMAL INSPECTION, NORMOCEPHALIC - Eye Exam Eye Exam: EOMI, Normal appearance - ENT Exam ENT Exam: Mucous Membranes Moist, Normal Exam - Neck Exam Neck Exam: Full ROM, Normal Inspection - Respiratory Exam Respiratory Exam: NORMAL BREATHING PATTERN - Cardiovascular Exam Cardiovascular Exam: REGULAR RHYTHM, +S1, +S2 - GI/Abdominal Exam GI & Abdominal Exam: Soft, Tenderness (mild, diffuse). absent: Distended, Firm , Guarding, Rigid - Extremities Exam Extremities Exam: Normal Inspection. absent: Pedal Edema - Neurological Exam Neurological Exam: Alert, Awake, CN II-XII Intact, Oriented x3 - Psychiatric Exam Psychiatric exam: Normal Affect, Normal Mood - Skin Skin Exam: Dry, Intact, Normal Color, Warm Assessment and Plan - Assessment and Plan (Free Text) Assessment: 62F w/abdominal pain, N & V, cholelithiasis on imaging- symptoms resolved Plan: Antiemetic Pain control HIDA negative CT ab w/mild segmental colitis at Right hemicolon & transvese segment proximally EGD & Colonoscopy with GI Elective outpatient cholecystectomy after GI work up complete Will DW attending Elke, PGY-1
[2017-07-11 09:02] LABS: IRON 88 ug/dL (37-170)
[2017-07-11 09:05] LABS: BLOOD UREA NITROGEN < 2 mg/dL (7-17); CALCIUM 8.3 mg/dl (8.6-10.4); GFR AFRICAN-AMERICAN > 60; GFR NON-AFRICAN AMERICAN > 60
[2017-07-11 09:10] LABS: TOTAL IRON BINDING CAPACITY 215 ug/dL (250-450)
[2017-07-11 09:35] LABS: HEPATITIS B SURFACE AG Negative (NEGATIVE)
[2017-07-11 09:41] LABS: HEPATITIS A IGM NEGATIVE (NEGATIVE); HEPATITIS B CORE AB NEGATIVE (NEGATIVE)
[2017-07-11 09:44] LABS: HIV 1&2 ANTIBODY NEGATIVE (NEGATIVE)
[2017-07-11 09:52] LABS: HEPATITIS C ANTIBODY NEGATIVE (NEGATIVE)
[2017-07-11 09:53] LABS: HEPATITIS C ANTIBODY NEGATIVE (NEGATIVE)
[2017-07-11] MEDS: Potassium Chloride 20 mEq/15 ml LIQ UD PO SCH ×2 (11:57→14:53)
[2017-07-11] MEDS: Dextrose 5%/0.45% NS 1,000 ML IV SCH ×2 (13:33→23:30)
--- NOTE | 2017-07-11 15:02 | CP.PCM.PN ---
Subjective - Date & Time of Evaluation Date of Evaluation: 07/11/17 Time of Evaluation: 15:00 - Subjective Subjective: CHIEF COMPLAINTS TODAY : PATIENT HAS NO FURTHER ABDOMINAL PAIN NAUSEA OR VOMITING. pATIENT STILL HAS MILD DIARRHEA ROS. HEENT : N. Resp : No cough, wheezing ,pleuritic CP ,or hemoptysis Cardio : No anginal CP, PND, orthopnea, palpitation GI : No GI bleeding . 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 Musculoskel : No joint swelling , Derm : No rash Psych : Normal affect. Ext : No swelling ,calf pain PE. Pt. is alert awake in no distress. V.S As noted in the chart Head ,ear nose,throat and eyes : Normal. Neck : Supple with normal carotids. Lungs: Clear air entry. Heart : S1 & S2 normal with S4. No murmur. Abd : Soft tender with normal bowel sounds. Neuro : Moves all ext. with no localized deficit. Ext : No edema with intact pulses.Non tender calves Derm : No rashes or decubitus ulcer. LABS/RADIOLOGY: HIDA scan is negative for cystic duct obstruction. CT scan of the abdomen shows heterogenous uptake of radionuclide IN LIVER of unknown etiology ASSESSMENT/PLAN : Continue IV fluids and potassium supplement AWAITING FOR ENDOSCOPY AND COLONOSCOPY DISCUSSED IN DETAIL WITH THE FAMILY ABOUT THE PATIENT'S PROBLEM Objective - Vital Signs/Intake and Output Vital Signs (last 24 hours): Temp Pulse Resp BP Pulse Ox 97.7 F 80 20 101/66 95 07/11/17 07:01 07/11/17 07:01 07/11/17 07:01 07/11/17 07:01 07/11/17 07:01 Intake and Output: 07/11/17 07/11/17 11:59 23:59 Intake Total 500 Balance 500 - Medications Medications: Current Medications Heparin Sodium (Porcine) (Heparin) 5,000 units SC Q12 [facility] Last Admin: 07/11/17 09:19 Dose: Not Given Metronidazole 250 mg/ (Miscellaneous) 50 mls @ 100 mls/hr IVPB Q8 [facility] PRN Reason: Protocol Last Admin: 07/11/17 13:33 Dose: 100 mls/hr Dextrose/Sodium Chloride (Dextrose 5%/0.45% Ns 1000 Ml) 1,000 mls @ 100 mls/hr IV .Q10H [facility] Last Admin: 07/11/17 13:33 Dose: 100 mls/hr Ondansetron HCl (Zofran Inj) 4 mg IVP Q6H PRN PRN Reason: NAUSEA/VOMITTING Last Admin: 07/11/17 11:55 Dose: 4 mg Potassium Chloride (Potassium Chloride Oral Soln) 40 meq PO Q4H [facility] Stop: 07/11/17 15:31 Last Admin: 07/11/17 14:53 Dose: 40 meq Quetiapine Fumarate (Seroquel) 100 mg PO HS [facility] Last Admin: 07/10/17 21:28 Dose: 100 mg - Labs Labs: 07/10/17 11:20 07/11/17 08:38 PT 10.9 SECONDS (9.7-12.2) 07/09/17 19:09 INR 1.0 07/09/17 19:09 APTT 31 SECONDS (21-34) 07/09/17 19:09
--- NOTE | 2017-07-11 19:49 | CP.PCM.PN ---
Subjective - Date & Time of Evaluation Date of Evaluation: 07/11/17 Time of Evaluation: 19:49 - Subjective Subjective: CHIEF COMPLAINTS TODAY : afebrile, denies abdominal pain no n/v c/o diarrhoea ROS. HEENT : N. Resp : No cough, wheezing ,pleuritic CP ,or hemoptysis Cardio : No anginal CP, PND, orthopnea, palpitation GI : No GI bleeding .+VE ABD. PAIN. 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 Musculoskel : No joint swelling , Derm : No rash Psych : Normal affect. Ext : No swelling ,calf pain PE. Pt. is alert awake in no distress. V.S As noted in the chart Head ,ear nose,throat and eyes : Normal. Neck : Supple with normal carotids. Lungs: Clear air entry. Heart : S1 & S2 normal with S4. No murmur. Abd : MILD TENDERNESS EPIGASTRIUM , with normal bowel sounds. Neuro : Moves all ext. with no localized deficit. Ext : No edema with intact pulses.Non tender calves Derm : No rashes or decubitus ulcer. LABS/RADIOLOGY: HIV -VE HEPATITIS SCREEN -VE VIT B12 -N. HIDA scan is negative for cystic duct obstruction. CT scan of the abdomen shows heterogenous uptake of radionuclide IN LIVER of unknown etiology ASSESSMENT ABDOMINAL PAIN GALLSTONES. ENTEROCOLITIS- SEGMENTAL ?HEPATIC LEISON./FATTY LIVER WT LOSS. ETIOLOGY NOT CLEAR. DEPRESSION /PLAN : CONTINUE IV Flagyl 250 mg IV piggyback every 8 hourly. DIARRHOEA W/U IN PROGRESS. Agree with GI, will need full workup including EGD, colonoscopy and biopsies rule out infectious versus infiltrative bowel disease vs malabsorption syndrome. CONTACT PRECAUTIONS FOR NOW. Continue IV fluids and potassium supplement Objective - Vital Signs/Intake and Output Vital Signs (last 24 hours): Temp Pulse Resp BP Pulse Ox 98.4 F 86 20 126/76 98 07/11/17 15:20 07/11/17 15:20 07/11/17 15:20 07/11/17 15:20 07/11/17 15:20 Intake and Output: 07/11/17 07/12/17 18:59 06:59 Intake Total 500 Balance 500 - Medications Medications: Current Medications Heparin Sodium (Porcine) (Heparin) 5,000 units SC Q12 [facility] Last Admin: 07/11/17 09:19 Dose: Not Given Metronidazole 250 mg/ (Miscellaneous) 50 mls @ 100 mls/hr IVPB Q8 [facility] PRN Reason: Protocol Last Admin: 07/11/17 13:33 Dose: 100 mls/hr Dextrose/Sodium Chloride (Dextrose 5%/0.45% Ns 1000 Ml) 1,000 mls @ 100 mls/hr IV .Q10H [facility] Last Admin: 07/11/17 13:33 Dose: 100 mls/hr Ondansetron HCl (Zofran Inj) 4 mg IVP Q6H PRN PRN Reason: NAUSEA/VOMITTING Last Admin: 07/11/17 11:55 Dose: 4 mg Quetiapine Fumarate (Seroquel) 100 mg PO HS [facility] Last Admin: 07/10/17 21:28 Dose: 100 mg - Labs Labs: 07/10/17 11:20 07/11/17 08:38 PT 10.9 SECONDS (9.7-12.2) 07/09/17 19:09 INR 1.0 07/09/17 19:09 APTT 31 SECONDS (21-34) 07/09/17 19:09 Assessment and Plan (1) Abdominal pain Status: Acute (2) Abdominal pain, vomiting, and diarrhea Status: Acute (3) Weight loss, abnormal Status: Acute (4) Depression Status: Acute (5) Gallstones Status: Acute
[2017-07-12] MEDS: metroNIDAZOLE IV 500 mg/100 ml 250 MG in Premixed IV 1 EA IVPB SCH ×3 (06:00→21:52)
[2017-07-12] MEDS: Dextrose 5%/0.45% NS 1,000 ML IV SCH ×2 (08:08→19:00)
--- NOTE | 2017-07-12 08:32 | CP.PCM.PN ---
Subjective - Date & Time of Evaluation Date of Evaluation: 07/12/17 Time of Evaluation: 08:27 - Subjective Subjective: Patient seen and examined, resting comfortably in bed. No acute events overnight, no recurrent vomiting since arrival to hospital. She continues to endorse mild abdominal pain, though improved compared to prior. She had 3 loose bowel movements yesterday. Tolerating PO liquids without difficulty. Review of vitals from today are normal. 12 point review of systems performed, negative aside from mentioned above. Objective - Vital Signs/Intake and Output Vital Signs (last 24 hours): Temp Pulse Resp BP Pulse Ox 98.1 F 91 H 20 108/73 98 07/12/17 01:00 07/12/17 01:00 07/12/17 01:00 07/12/17 01:00 07/12/17 01:00 Intake and Output: 07/12/17 07/12/17 06:59 18:59 Intake Total 1040 Balance 1040 - Medications Medications: Current Medications Heparin Sodium (Porcine) (Heparin) 5,000 units SC Q12 [facility] Last Admin: 07/11/17 21:14 Dose: Not Given Metronidazole 250 mg/ (Miscellaneous) 50 mls @ 100 mls/hr IVPB Q8 [facility] PRN Reason: Protocol Last Admin: 07/12/17 06:00 Dose: 100 mls/hr Dextrose/Sodium Chloride (Dextrose 5%/0.45% Ns 1000 Ml) 1,000 mls @ 100 mls/hr IV .Q10H [facility] Last Admin: 07/12/17 08:08 Dose: Not Given Ondansetron HCl (Zofran Inj) 4 mg IVP Q6H PRN PRN Reason: NAUSEA/VOMITTING Last Admin: 07/11/17 11:55 Dose: 4 mg Quetiapine Fumarate (Seroquel) 100 mg PO HS [facility] Last Admin: 07/11/17 21:09 Dose: 100 mg - Labs Labs: 07/10/17 11:20 07/11/17 08:38 PT 10.9 SECONDS (9.7-12.2) 07/09/17 19:09 INR 1.0 07/09/17 19:09 APTT 31 SECONDS (21-34) 07/09/17 19:09 - Constitutional Appears: Non-toxic, No Acute Distress - Head Exam Head Exam: NORMAL INSPECTION - Eye Exam Eye Exam: EOMI, Normal appearance - ENT Exam ENT Exam: Mucous Membranes Moist - Respiratory Exam Respiratory Exam: Clear to Ausculation Bilateral - Cardiovascular Exam Cardiovascular Exam: REGULAR RHYTHM, +S1, +S2 - GI/Abdominal Exam GI & Abdominal Exam: Soft, Tenderness, Normal Bowel Sounds Additional comments: mild epigastric tenderness to palpation, no rebound/guarding - Extremities Exam Extremities Exam: Normal Inspection - Skin Skin Exam: Dry, Intact, Normal Color, Warm Assessment and Plan - Assessment and Plan (Free Text) Assessment: Depression Abdominal pain Nausea, vomiting - resolved Colitis - segmental as noted from recent CT imaging Cholelithiasis Unexplained weight loss Plan: - Liquid diet as tolerated - Continue with antibiotic therapy - Awaiting results of stool studies - Surgical team recommending consideration of elective outpatient cholecystectomy - Patient requires EGD/colonoscopy for further evaluation, will tentatively plan for thursday AM, will continue on liquid diet for time being. Will continue to monitor patient clinical course.
[2017-07-12 14:18] LABS: CALCIUM 8.2 mg/dl (8.6-10.4); GFR AFRICAN-AMERICAN > 60; GFR NON-AFRICAN AMERICAN > 60
[2017-07-12 14:29] LABS: BLOOD UREA NITROGEN < 2 mg/dL (7-17)
--- NOTE | 2017-07-12 15:32 | CP.PCM.PN ---
Subjective - Date & Time of Evaluation Date of Evaluation: 07/12/17 Time of Evaluation: 15:29 - Subjective Subjective: Chart reviewed GI evaluation noted. Patient has now only diarrhea 2 or 3 times a day. For EGD colonoscopy on Thursday. Potassium is corrected Objective - Vital Signs/Intake and Output Vital Signs (last 24 hours): Temp Pulse Resp BP Pulse Ox 98.1 F 91 H 20 108/73 98 07/12/17 01:00 07/12/17 01:00 07/12/17 01:00 07/12/17 01:00 07/12/17 01:00 Intake and Output: 07/12/17 07/12/17 11:59 23:59 Intake Total 1040 800 Balance 1040 800 - Medications Medications: Current Medications Bisacodyl (Dulcolax) 10 mg PO ONCE ONE Stop: 07/13/17 18:01 Heparin Sodium (Porcine) (Heparin) 5,000 units SC Q12 [facility] Last Admin: 07/12/17 09:54 Dose: Not Given Metronidazole 250 mg/ (Miscellaneous) 50 mls @ 100 mls/hr IVPB Q8 [facility] PRN Reason: Protocol Last Admin: 07/12/17 13:21 Dose: 100 mls/hr Dextrose/Sodium Chloride (Dextrose 5%/0.45% Ns 1000 Ml) 1,000 mls @ 100 mls/hr IV .Q10H [facility] Last Admin: 07/12/17 08:08 Dose: Not Given Ondansetron HCl (Zofran Inj) 4 mg IVP Q6H PRN PRN Reason: NAUSEA/VOMITTING Last Admin: 07/12/17 13:21 Dose: 4 mg Polyethylene Glycol/Electrolytes (Golytely) 4,000 ml PO ONCE ONE Stop: 07/13/17 13:01 Quetiapine Fumarate (Seroquel) 100 mg PO HS [facility] Last Admin: 07/11/17 21:09 Dose: 100 mg - Labs Labs: 07/10/17 11:20 07/12/17 14:01 PT 10.9 SECONDS (9.7-12.2) 07/09/17 19:09 INR 1.0 07/09/17 19:09 APTT 31 SECONDS (21-34) 07/09/17 19:09
[2017-07-13] MEDS: Dextrose 5%/0.45% NS 1,000 ML IV SCH ×3 (05:00→14:22)
[2017-07-13] MEDS: metroNIDAZOLE IV 500 mg/100 ml 250 MG in Premixed IV 1 EA IVPB SCH ×3 (05:20→21:45)
--- NOTE | 2017-07-13 09:02 | CP.PCM.PN ---
Subjective - Date & Time of Evaluation Date of Evaluation: 07/13/17 Time of Evaluation: 08:59 - Subjective Subjective: Patient seen and examined, resting comfortably in bed. No acute events overnight, she continues to endorse generalized abdominal pain and nausea but she denies vomiting, fever/chills. She had one loose bowel movement this morning, tolerating PO liquids without difficulty. Review of vitals from today are normal. 12 point review of systems performed, negative aside from mentioned above. Objective - Vital Signs/Intake and Output Vital Signs (last 24 hours): Temp Pulse Resp BP Pulse Ox 98.5 F 88 20 119/73 96 07/13/17 08:21 07/13/17 08:21 07/13/17 08:21 07/13/17 08:21 07/13/17 08:21 Intake and Output: 07/13/17 07/13/17 06:59 18:59 Intake Total 1100 Balance 1100 - Medications Medications: Current Medications Bisacodyl (Dulcolax) 10 mg PO ONCE ONE Stop: 07/13/17 18:01 Heparin Sodium (Porcine) (Heparin) 5,000 units SC Q12 ÁLVARO Last Admin: 07/12/17 21:57 Dose: Not Given Metronidazole 250 mg/ (Miscellaneous) 50 mls @ 100 mls/hr IVPB Q8 ÁLVARO PRN Reason: Protocol Last Admin: 07/13/17 05:20 Dose: 100 mls/hr Dextrose/Sodium Chloride (Dextrose 5%/0.45% Ns 1000 Ml) 1,000 mls @ 100 mls/hr IV .Q10H ÁLVARO Last Admin: 07/12/17 19:00 Dose: 100 mls/hr Ondansetron HCl (Zofran Inj) 4 mg IVP Q6H PRN PRN Reason: NAUSEA/VOMITTING Last Admin: 07/12/17 13:21 Dose: 4 mg Polyethylene Glycol/Electrolytes (Golytely) 4,000 ml PO ONCE ONE Stop: 07/13/17 13:01 Quetiapine Fumarate (Seroquel) 100 mg PO HS ÁLVARO Last Admin: 07/12/17 21:53 Dose: 100 mg Zolpidem Tartrate (Ambien) 5 mg PO HS PRN PRN Reason: Insomnia Last Admin: 07/12/17 21:52 Dose: 5 mg - Labs Labs: 07/10/17 11:20 07/12/17 14:01 PT 10.9 SECONDS (9.7-12.2) 07/09/17 19:09 INR 1.0 07/09/17 19:09 APTT 31 SECONDS (21-34) 07/09/17 19:09 - Constitutional Appears: Non-toxic, No Acute Distress - Head Exam Head Exam: NORMAL INSPECTION - Eye Exam Eye Exam: EOMI, Normal appearance - ENT Exam ENT Exam: Mucous Membranes Moist - Respiratory Exam Respiratory Exam: Clear to Ausculation Bilateral - Cardiovascular Exam Cardiovascular Exam: REGULAR RHYTHM, +S1, +S2 - GI/Abdominal Exam GI & Abdominal Exam: Soft, Normal Bowel Sounds Additional comments: mild epigastric tenderness to palpation, no rebound/guarding - Extremities Exam Extremities Exam: Normal Inspection - Skin Skin Exam: Dry, Intact, Normal Color, Warm Assessment and Plan - Assessment and Plan (Free Text) Assessment: Depression Abdominal pain Segmental colitis Unexplained weight loss Cholelithiasis Plan: - Liquid diet as tolerated - Continue with antibiotic therapy - Awaiting stool study results - Plan for EGD/colonoscopy tomorrow for further evalution, Heu bowel preparation today, NPO after midnight
[2017-07-13] MEDS ORDERED: Peg-Electrolyte Oral Soln 4L (Golytely) PO ONE (13:00)
--- NOTE | 2017-07-13 14:33 | CP.PCM.PN ---
Subjective - Date & Time of Evaluation Date of Evaluation: 07/13/17 Time of Evaluation: 14:32 - Subjective Subjective: CHIEF COMPLAINTS TODAY : PATIENT HAS NO FURTHER ABDOMINAL PAIN NAUSEA OR VOMITING. pATIENT STILL HAS MILD DIARRHEA ROS. HEENT : N. Resp : No cough, wheezing ,pleuritic CP ,or hemoptysis Cardio : No anginal CP, PND, orthopnea, palpitation GI : No GI bleeding . 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 Musculoskel : No joint swelling , Derm : No rash Psych : Normal affect. Ext : No swelling ,calf pain PE. Pt. is alert awake in no distress. V.S As noted in the chart Head ,ear nose,throat and eyes : Normal. Neck : Supple with normal carotids. Lungs: Clear air entry. Heart : S1 & S2 normal with S4. No murmur. Abd : Soft tender with normal bowel sounds. Neuro : Moves all ext. with no localized deficit. Ext : No edema with intact pulses.Non tender calves Derm : No rashes or decubitus ulcer. LABS/RADIOLOGY: HIDA scan is negative for cystic duct obstruction. CT scan of the abdomen shows heterogenous uptake of radionuclide IN LIVER of unknown etiology ASSESSMENT/PLAN : upper endoscopy in a.m. C. difficile stool is not available Objective - Vital Signs/Intake and Output Vital Signs (last 24 hours): Temp Pulse Resp BP Pulse Ox 98.5 F 88 20 119/73 96 07/13/17 08:21 07/13/17 08:21 07/13/17 08:21 07/13/17 08:21 07/13/17 08:21 Intake and Output: 07/13/17 07/13/17 11:59 23:59 Intake Total 1100 Balance 1100 - Medications Medications: Current Medications Bisacodyl (Dulcolax) 10 mg PO ONCE ONE Stop: 07/13/17 18:01 Metronidazole 250 mg/ (Miscellaneous) 50 mls @ 100 mls/hr IVPB Q8 [facility] PRN Reason: Protocol Last Admin: 07/13/17 14:13 Dose: 100 mls/hr Dextrose/Sodium Chloride (Dextrose 5%/0.45% Ns 1000 Ml) 1,000 mls @ 100 mls/hr IV .Q10H [facility] Last Admin: 07/13/17 14:22 Dose: Not Given Ondansetron HCl (Zofran Inj) 4 mg IVP Q6H PRN PRN Reason: NAUSEA/VOMITTING Last Admin: 07/12/17 13:21 Dose: 4 mg Quetiapine Fumarate (Seroquel) 100 mg PO HS ÁLVARO Last Admin: 07/12/17 21:53 Dose: 100 mg Zolpidem Tartrate (Ambien) 5 mg PO HS PRN PRN Reason: Insomnia Last Admin: 07/12/17 21:52 Dose: 5 mg - Labs Labs: 07/10/17 11:20 07/12/17 14:01 PT 10.9 SECONDS (9.7-12.2) 07/09/17 19:09 INR 1.0 07/09/17 19:09 APTT 31 SECONDS (21-34) 07/09/17 19:09
[2017-07-13] MEDS ORDERED: Bisacodyl 5mg EC Tab PO ONE (18:00)
--- NOTE | 2017-07-13 18:12 | CP.PCM.PN ---
Subjective - Date & Time of Evaluation Date of Evaluation: 07/13/17 Time of Evaluation: 18:12 - Subjective Subjective: CHIEF COMPLAINTS TODAY : afebrile, denies abdominal pain PT UNDERGOING PREP FOR GI PROCEDURE IN AM ROS. HEENT : N. Resp : No cough, wheezing ,pleuritic CP ,or hemoptysis Cardio : No anginal CP, PND, orthopnea, palpitation GI : No GI bleeding .+VE ABD. PAIN. 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 Musculoskel : No joint swelling , Derm : No rash Psych : Normal affect. Ext : No swelling ,calf pain PE. Pt. is alert awake in no distress. V.S As noted in the chart Head ,ear nose,throat and eyes : Normal. Neck : Supple with normal carotids. Lungs: Clear air entry. Heart : S1 & S2 normal with S4. No murmur. Abd : MILD TENDERNESS EPIGASTRIUM , with normal bowel sounds. Neuro : Moves all ext. with no localized deficit. Ext : No edema with intact pulses.Non tender calves Derm : No rashes or decubitus ulcer. LABS/RADIOLOGY: HIV -VE HEPATITIS SCREEN -VE VIT B12 -N. HIDA scan is negative for cystic duct obstruction. CT scan of the abdomen shows heterogenous uptake of radionuclide IN LIVER of unknown etiology ASSESSMENT ABDOMINAL PAIN GALLSTONES. ENTEROCOLITIS- SEGMENTAL ?HEPATIC LEISON./FATTY LIVER WT LOSS. ETIOLOGY NOT CLEAR. DEPRESSION /PLAN : FOR EGD/COLONOSCOPY IN AM PER GI CONTINUE IV Flagyl 250 mg IV piggyback every 8 hourly. DIARRHOEA W/U IN PROGRESS. Agree with GI, will need full workup including EGD, colonoscopy and biopsies rule out infectious versus infiltrative bowel disease vs malabsorption syndrome. CONTACT PRECAUTIONS FOR NOW. Continue IV fluids and potassium supplement Objective - Vital Signs/Intake and Output Vital Signs (last 24 hours): Temp Pulse Resp BP Pulse Ox 98.1 F 76 20 118/78 98 07/13/17 16:00 07/13/17 16:00 07/13/17 16:00 07/13/17 16:00 07/13/17 16:00 Intake and Output: 07/13/17 07/13/17 06:59 18:59 Intake Total 1100 2300 Balance 1100 2300 - Medications Medications: Current Medications Metronidazole 250 mg/ (Miscellaneous) 50 mls @ 100 mls/hr IVPB Q8 ÁLVARO PRN Reason: Protocol Last Admin: 07/13/17 14:13 Dose: 100 mls/hr Dextrose/Sodium Chloride (Dextrose 5%/0.45% Ns 1000 Ml) 1,000 mls @ 100 mls/hr IV .Q10H ÁLVARO Last Admin: 07/13/17 14:22 Dose: Not Given Ondansetron HCl (Zofran Inj) 4 mg IVP Q6H PRN PRN Reason: NAUSEA/VOMITTING Last Admin: 07/12/17 13:21 Dose: 4 mg Quetiapine Fumarate (Seroquel) 100 mg PO HS ÁLVARO Last Admin: 07/12/17 21:53 Dose: 100 mg Zolpidem Tartrate (Ambien) 5 mg PO HS PRN PRN Reason: Insomnia Last Admin: 07/12/17 21:52 Dose: 5 mg - Labs Labs: 07/10/17 11:20 07/12/17 14:01 PT 10.9 SECONDS (9.7-12.2) 07/09/17 19:09 INR 1.0 07/09/17 19:09 APTT 31 SECONDS (21-34) 07/09/17 19:09 Assessment and Plan (1) Abdominal pain Status: Acute (2) Abdominal pain, vomiting, and diarrhea Status: Acute (3) Weight loss, abnormal Status: Acute (4) Depression Status: Acute (5) Gallstones Status: Acute
[2017-07-14] MEDS: Dextrose 5%/0.45% NS 1,000 ML IV SCH ×2 (01:00→10:12)
[2017-07-14] MEDS: metroNIDAZOLE IV 500 mg/100 ml 250 MG in Premixed IV 1 EA IVPB SCH ×3 (05:10→21:32)
[2017-07-14 07:29] LABS: INR 1.1; PROTHROMBIN TIME 12.3 SECONDS (9.7-12.2)
[2017-07-14 07:30] LABS: BASO % 0.6 % (0.0-2.0); EOS # 0.1 K/uL (0.0-0.7); EOS % 1.3 % (0.0-4.0); LYMPH # 1.8 K/uL (1.0-4.3); LYMPH % 22.8 % (20.0-40.0); MEAN CELL VOLUME 104.4 fL (81.0-99.0); MEAN CORPUSCULAR HGB CONC 34.5 g/dL (33.0-37.0); MEAN PLATELET VOLUME 8.8 fL (7.2-11.7); MONO # 1.1 K/uL (0.0-0.8); MONO % 13.9 % (0.0-10.0); NEUT % 61.4 % (50.0-75.0); RBC 3.33 Mil/uL (3.80-5.20); RED CELL DISTRIBUTION WIDTH 14.3 % (11.5-14.5); WHITE BLOOD COUNT 8.1 K/uL (4.8-10.8)
[2017-07-14] MEDS ORDERED: Propofol 10 mg/ml Inj (20 ML) ONE ×2 (07:34→07:51)
[2017-07-14] MEDS ORDERED: Midazolam 2 MG/2 ML VIAL ONE (07:35)
[2017-07-14] MEDS ORDERED: Lactated Ringer's 1,000 ML IV ONE (07:40)
[2017-07-14 07:58] LABS: ALB/GLOB RATIO 0.9 (1.0-2.1); ALBUMIN 2.4 g/dL (3.5-5.0); ALT/SGPT 39 U/L (9-52); AST/SGOT 40 U/L (14-36); BLOOD UREA NITROGEN < 2 mg/dL (7-17); CALCIUM 7.8 mg/dl (8.6-10.4); GFR AFRICAN-AMERICAN > 60; GFR NON-AFRICAN AMERICAN > 60
[2017-07-14 09:35] VITALS: RESP 20
--- NOTE | 2017-07-14 10:28 | CP.PCM.PN ---
Subjective - Date & Time of Evaluation Date of Evaluation: 07/14/17 Time of Evaluation: 10:25 - Subjective Subjective: Patient seen and examined, no acute events overnight. She underwent EGD/ colonoscopy today showing gastritis, hiatal hernia, multiple colon polyps with suboptimal bowel preparation. No endoscopic evidence of colitis. Objective - Vital Signs/Intake and Output Vital Signs (last 24 hours): Temp Pulse Resp BP Pulse Ox 97 F L 74 20 121/70 96 07/14/17 08:22 07/14/17 08:48 07/14/17 08:48 07/14/17 08:48 07/14/17 08:48 Intake and Output: 07/14/17 07/14/17 06:59 18:59 Intake Total 800 Balance 800 - Medications Medications: Current Medications Metronidazole 250 mg/ (Miscellaneous) 50 mls @ 100 mls/hr IVPB Q8 L[facility]VARO PRN Reason: Protocol Last Admin: 07/14/17 05:10 Dose: 100 mls/hr Dextrose/Sodium Chloride (Dextrose 5%/0.45% Ns 1000 Ml) 1,000 mls @ 100 mls/hr IV .Q10H ÁLVARO Last Admin: 07/14/17 10:12 Dose: Not Given Ondansetron HCl (Zofran Inj) 4 mg IVP Q6H PRN PRN Reason: NAUSEA/VOMITTING Last Admin: 07/14/17 09:25 Dose: 4 mg Quetiapine Fumarate (Seroquel) 100 mg PO HS ÁLVARO Last Admin: 07/13/17 21:46 Dose: 100 mg Zolpidem Tartrate (Ambien) 5 mg PO HS PRN PRN Reason: Insomnia Last Admin: 07/13/17 21:46 Dose: 5 mg - Labs Labs: 07/14/17 07:15 07/14/17 07:15 PT 12.3 SECONDS (9.7-12.2) H 07/14/17 07:15 INR 1.1 07/14/17 07:15 APTT 31 SECONDS (21-34) 07/09/17 19:09 Assessment and Plan - Assessment and Plan (Free Text) Assessment: Depression Abdominal pain - resolved Cholelithiasis Weight loss Plan: - Advance diet as tolerated - Follow up ID recommendations - Follow up pathology results from EGD/colonoscopy - Patient will require repeat colonoscopy in 1 month for polyp resection along with more optimal bowel preparation, to be arranged as outpatient - No further planned GI interventions at this time, will sign off case. From GI standpoint, ok to discharge home with subsequent outpatient follow up. Please reconsult as necessary, thank you.
--- NOTE | 2017-07-14 13:46 | CP.PCM.PN ---
Subjective - Date & Time of Evaluation Date of Evaluation: 07/14/17 Time of Evaluation: 13:44 - Subjective Subjective: CHIEF COMPLAINTS TODAY : PATIENT HAS NO FURTHER ABDOMINAL PAIN NAUSEA OR VOMITING. pATIENT STILL HAS MILD DIARRHEA ROS. HEENT : N. Resp : No cough, wheezing ,pleuritic CP ,or hemoptysis Cardio : No anginal CP, PND, orthopnea, palpitation GI : No GI bleeding . 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 Musculoskel : No joint swelling , Derm : No rash Psych : Normal affect. Ext : No swelling ,calf pain PE. Pt. is alert awake in no distress. V.S As noted in the chart Head ,ear nose,throat and eyes : Normal. Neck : Supple with normal carotids. Lungs: Clear air entry. Heart : S1 & S2 normal with S4. No murmur. Abd : Soft tender with normal bowel sounds. Neuro : Moves all ext. with no localized deficit. Ext : No edema with intact pulses.Non tender calves Derm : No rashes or decubitus ulcer. LABS/RADIOLOGY: HIDA scan is negative for cystic duct obstruction. CT scan of the abdomen shows heterogenous uptake of radionuclide IN LIVER of unknown etiology ASSESSMENT/PLAN : Upper endoscopy and colonoscopy did not reveal any acute pathology. Only colonic polyps. C. difficile is still pending. Continue IV antibiotics Objective - Vital Signs/Intake and Output Vital Signs (last 24 hours): Temp Pulse Resp BP Pulse Ox 98.1 F 93 H 20 128/75 96 07/14/17 10:00 07/14/17 10:00 07/14/17 10:00 07/14/17 10:00 07/14/17 10:00 Intake and Output: 07/14/17 07/14/17 11:59 23:59 Intake Total 800 Balance 800 - Medications Medications: Current Medications Metronidazole 250 mg/ (Miscellaneous) 50 mls @ 100 mls/hr IVPB Q8 ÁLVARO PRN Reason: Protocol Last Admin: 07/14/17 05:10 Dose: 100 mls/hr Dextrose/Sodium Chloride (Dextrose 5%/0.45% Ns 1000 Ml) 1,000 mls @ 100 mls/hr IV .Q10H [facility] Last Admin: 07/14/17 10:12 Dose: Not Given Ondansetron HCl (Zofran Inj) 4 mg IVP Q6H PRN PRN Reason: NAUSEA/VOMITTING Last Admin: 07/14/17 09:25 Dose: 4 mg Quetiapine Fumarate (Seroquel) 100 mg PO HS ÁLVARO Last Admin: 07/13/17 21:46 Dose: 100 mg Zolpidem Tartrate (Ambien) 5 mg PO HS PRN PRN Reason: Insomnia Last Admin: 07/13/17 21:46 Dose: 5 mg - Labs Labs: 07/14/17 07:15 07/14/17 07:15 PT 12.3 SECONDS (9.7-12.2) H 07/14/17 07:15 INR 1.1 07/14/17 07:15 APTT 31 SECONDS (21-34) 07/09/17 19:09
--- NOTE | 2017-07-14 14:22 | CP.PCM.PN ---
Subjective - Date & Time of Evaluation Date of Evaluation: 07/14/17 Time of Evaluation: 14:22 - Subjective Subjective: CHIEF COMPLAINTS TODAY : afebrile, denies abdominal pain. S/P EGD /COLONOSCOPY TODAY findings noted. ROS. HEENT : N. Resp : No cough, wheezing ,pleuritic CP ,or hemoptysis Cardio : No anginal CP, PND, orthopnea, palpitation GI : No GI bleeding .+VE ABD. PAIN. 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 Musculoskel : No joint swelling , Derm : No rash Psych : Normal affect. Ext : No swelling ,calf pain PE. Pt. is alert awake in no distress. V.S As noted in the chart Head ,ear nose,throat and eyes : Normal. Neck : Supple with normal carotids. Lungs: Clear air entry. Heart : S1 & S2 normal with S4. No murmur. Abd : MILD TENDERNESS EPIGASTRIUM , with normal bowel sounds. Neuro : Moves all ext. with no localized deficit. Ext : No edema with intact pulses.Non tender calves Derm : No rashes or decubitus ulcer. LABS/RADIOLOGY: diarrhoea w/u so far -ve GIARDIA AG NOT DETECTED HIV -VE HEPATITIS SCREEN -VE VIT B12 -N. HIDA scan is negative for cystic duct obstruction. CT scan of the abdomen shows heterogenous uptake of radionuclide IN LIVER of unknown etiology ASSESSMENT ABDOMINAL PAIN GALLSTONES. ENTEROCOLITIS- SEGMENTAL ?HEPATIC LEISON./FATTY LIVER WT LOSS. ETIOLOGY NOT CLEAR. DEPRESSION /PLAN : DC IV Flagyl 250 mg IV piggyback every 8 hourly. DIARRHOEA W/U IN PROGRESS. CONTACT PRECAUTIONS FOR NOW. PER GI.F/U PATHOLOGY FROM EGD/COLONOSCOPY. Continue IV fluids and potassium supplement Objective - Vital Signs/Intake and Output Vital Signs (last 24 hours): Temp Pulse Resp BP Pulse Ox 98.1 F 93 H 20 128/75 97 07/14/17 10:00 07/14/17 10:00 07/14/17 10:00 07/14/17 10:00 07/14/17 14:15 Intake and Output: 07/14/17 07/14/17 06:59 18:59 Intake Total 800 Balance 800 - Medications Medications: Current Medications Metronidazole 250 mg/ (Miscellaneous) 50 mls @ 100 mls/hr IVPB Q8 ÁLVARO PRN Reason: Protocol Last Admin: 07/14/17 13:44 Dose: 100 mls/hr Ondansetron HCl (Zofran Inj) 4 mg IVP Q6H PRN PRN Reason: NAUSEA/VOMITTING Last Admin: 07/14/17 09:25 Dose: 4 mg Quetiapine Fumarate (Seroquel) 100 mg PO HS ÁLVARO Last Admin: 07/13/17 21:46 Dose: 100 mg Zolpidem Tartrate (Ambien) 5 mg PO HS PRN PRN Reason: Insomnia Last Admin: 07/13/17 21:46 Dose: 5 mg - Labs Labs: 07/14/17 07:15 07/14/17 07:15 PT 12.3 SECONDS (9.7-12.2) H 07/14/17 07:15 INR 1.1 07/14/17 07:15 APTT 31 SECONDS (21-34) 07/09/17 19:09 Assessment and Plan (1) Abdominal pain Status: Acute (2) Abdominal pain, vomiting, and diarrhea Status: Acute (3) Weight loss, abnormal Status: Acute (4) Depression Status: Acute (5) Gallstones Status: Acute
[2017-07-14 17:02] LABS: % CD4 (T HELPER CELL) 45 Percent (30-61); % CD8 (SUPPRESSOR T CELL) 15 Percent (12-42); ABSOLUTE CD4 CELLS 1352 Cells/mcL (490-1740); ABSOLUTE CD8 CELLS 447 Cells/mcL (180-1170); ABSOLUTE LYMPHOCYTES 3003 Cells/mcL (850-3900); HELPER/SUPPRESSOR RATIO 3.03 Ratio (0.86-5.00)
[2017-07-15] MEDS ORDERED: Potassium Chloride 20 mEq ER Tab PO SCH (10:21)
[2017-07-15] MEDS ORDERED: Magnesium Oxide 400 mg Tab UD PO SCH (10:30)
--- NOTE | 2017-07-15 12:01 | CP.PCM.PN ---
Subjective - Date & Time of Evaluation Date of Evaluation: 07/15/17 Time of Evaluation: 12:01 Objective - Vital Signs/Intake and Output Vital Signs (last 24 hours): Temp Pulse Resp BP Pulse Ox 98.7 F 106 H 20 114/76 94 L 07/15/17 07:10 07/15/17 07:10 07/15/17 07:10 07/15/17 07:10 07/15/17 07:10 Intake and Output: 07/15/17 07/15/17 06:59 18:59 Intake Total 0 Balance 0 - Medications Medications: Current Medications Magnesium Oxide (Mag-Ox) 400 mg PO DAILY [facility] Last Admin: 07/15/17 10:35 Dose: 400 mg Ondansetron HCl (Zofran Inj) 4 mg IVP Q6H PRN PRN Reason: NAUSEA/VOMITTING Last Admin: 07/14/17 09:25 Dose: 4 mg Potassium Chloride (K-Dur 20 Meq Er Tab) 40 meq PO DAILY [facility] Last Admin: 07/15/17 10:36 Dose: 40 meq Quetiapine Fumarate (Seroquel) 100 mg PO HS [facility] Last Admin: 07/14/17 21:32 Dose: 100 mg Zolpidem Tartrate (Ambien) 5 mg PO HS PRN PRN Reason: Insomnia Last Admin: 07/14/17 21:31 Dose: 5 mg - Labs Labs: 07/14/17 07:15 07/14/17 07:15 PT 12.3 SECONDS (9.7-12.2) H 07/14/17 07:15 INR 1.1 07/14/17 07:15 APTT 31 SECONDS (21-34) 07/09/17 19:09 Assessment and Plan (1) Abdominal pain Status: Acute (2) Abdominal pain, vomiting, and diarrhea Status: Acute (3) Weight loss, abnormal Status: Acute (4) Depression Status: Acute (5) Gallstones Status: Acute
--- NOTE | 2017-07-15 13:59 | CP.PCM.DIS ---
Provider - Provider Date of Admission: 07/09/17 22:36 Attending physician: Mary Chawla MD Time Spent in preparation of Discharge (in minutes): 35 Hospital Course - Lab Results Lab Results: Micro Results 07/11/17 Unknown Stool Ova and Parasite Concentrate Exam - Final 07/11/17 Unknown Stool Stool Culture - Final NO SALMONELLA, SHIGELLA OR CAMPYLOBACTER ISOLATED. Most Recent Lab Values WBC 8.1 K/uL (4.8-10.8) 07/14/17 07:15 RBC 3.33 Mil/uL (3.80-5.20) L 07/14/17 07:15 Hgb 12.0 g/dL (11.0-16.0) 07/14/17 07:15 Hct 34.7 % (34.0-47.0) 07/14/17 07:15 MCV 104.4 fL (81.0-99.0) H 07/14/17 07:15 MCH 36.0 pg (27.0-31.0) H 07/14/17 07:15 MCHC 34.5 g/dL (33.0-37.0) 07/14/17 07:15 RDW 14.3 % (11.5-14.5) 07/14/17 07:15 Plt Count 208 K/uL (130-400) 07/14/17 07:15 MPV 8.8 fL (7.2-11.7) 07/14/17 07:15 Neut % (Auto) 61.4 % (50.0-75.0) 07/14/17 07:15 Lymph % (Auto) 22.8 % (20.0-40.0) 07/14/17 07:15 [place] % (Auto) 13.9 % (0.0-10.0) H 07/14/17 07:15 Eos % (Auto) 1.3 % (0.0-4.0) 07/14/17 07:15 Baso % (Auto) 0.6 % (0.0-2.0) 07/14/17 07:15 Neut # (Auto) 5.0 K/uL (1.8-7.0) 07/14/17 07:15 Lymph # (Auto) 1.8 K/uL (1.0-4.3) 07/14/17 07:15 [place] # (Auto) 1.1 K/uL (0.0-0.8) H 07/14/17 07:15 Eos # (Auto) 0.1 K/uL (0.0-0.7) 07/14/17 07:15 Baso # (Auto) 0.0 K/uL (0.0-0.2) 07/14/17 07:15 PT 12.3 SECONDS (9.7-12.2) H 07/14/17 07:15 INR 1.1 07/14/17 07:15 APTT 31 SECONDS (21-34) 07/09/17 19:09 Sodium 140 mmol/L (132-148) 07/14/17 07:15 Potassium 3.0 mmol/L (3.6-5.2) L 07/14/17 07:15 Chloride 107 mmol/L (98-107) 07/14/17 07:15 Carbon Dioxide 25 mmol/L (22-30) 07/14/17 07:15 Anion Gap 11 (10-20) 07/14/17 07:15 BUN < 2 mg/dL (7-17) L 07/14/17 07:15 Creatinine 0.5 mg/dL (0.7-1.2) L 07/14/17 07:15 Est GFR ( Amer) > 60 07/14/17 07:15 Est GFR (Non-Af Amer) > 60 07/14/17 07:15 Random Glucose 106 mg/dL (65-105) H 07/14/17 07:15 Calcium 7.8 mg/dl (8.6-10.4) L 07/14/17 07:15 Magnesium 1.5 mg/dL (1.6-2.3) L 07/11/17 08:38 Iron 88 ug/dL (37-170) 07/11/17 08:38 TIBC 215 ug/dL (250-450) L 07/11/17 08:38 % Saturation 46 (20-55) 07/10/17 16:49 Ferritin 383.0 ng/mL 07/11/17 08:38 Total Bilirubin 0.6 mg/dL (0.2-1.3) 07/14/17 07:15 AST 40 U/L (14-36) H D 05/29/18 07:15 ALT 39 U/L (9-52) 07/14/17 07:15 Alkaline Phosphatase 88 U/L (38-126) 07/14/17 07:15 Total Protein 4.9 g/dL (6.3-8.3) L 07/14/17 07:15 Albumin 2.4 g/dL (3.5-5.0) L 07/14/17 07:15 Globulin 2.5 gm/dL (2.2-3.9) 07/14/17 07:15 Albumin/Globulin Ratio 0.9 (1.0-2.1) L 07/14/17 07:15 Lipase 57 U/L (23-300) 07/09/17 19:09 Vitamin B12 > 1000 pg/mL (239-931) H 07/11/17 08:38 Urine Color Yellow (YELLOW) 07/09/17 19:45 Urine Clarity Clear (Clear) 07/09/17 19:45 Urine pH 7.0 (5.0-8.0) 07/09/17 19:45 Ur Specific [place] 1.001 (1.003-1.030) L 07/09/17 19:45 Urine Protein Negative mg/dL (NEGATIVE) 07/09/17 19:45 Urine Glucose (UA) Normal mg/dL (Normal) 07/09/17 19:45 Urine Ketones Negative mg/dL (NEGATIVE) 07/09/17 19:45 Urine Blood Negative (NEGATIVE) 07/09/17 19:45 Urine Nitrate Negative (NEGATIVE) 07/09/17 19:45 Urine Bilirubin Negative (NEGATIVE) 07/09/17 19:45 Urine Urobilinogen Normal mg/dL (0.2-1.0) 07/09/17 19:45 Ur Leukocyte Esterase Neg [place]/uL (Negative) 07/09/17 19:45 Urine WBC (Auto) < 1 /hpf (0-5) 07/09/17 19:45 Ur Squamous Epith Cells < 1 /hpf (0-5) 07/09/17 19:45 Stool H. pylori Ag Not detected (Not Detected) 07/10/17 Unknown Absolute Lymphs (Flow) 3003 Cells/mcL (850-3900) 07/11/17 08:38 % CD4 Cells 45 Percent (30-61) 07/11/17 08:38 Absolute CD4 Count 1352 Cells/mcL (490-1740) 07/11/17 08:38 T-Help/Suppress Ratio 3.03 Ratio (0.86-5.00) 07/11/17 08:38 % CD8 Cells 15 Percent (12-42) 07/11/17 08:38 Absolute CD8 Count 447 Cells/mcL (180-1170) 07/11/17 08:38 Giardia Antigen Not detected (Not Detected) 07/10/17 Unknown H. pylori Source Stool 07/10/17 Unknown Hepatitis A IgM Ab Negative (NEGATIVE) 07/11/17 08:38 Hep Bs Antigen Negative (NEGATIVE) 07/11/17 08:38 Hep B Core IgM Ab Negative (NEGATIVE) 07/11/17 08:38 Hepatitis C Antibody Negative (NEGATIVE) 07/11/17 08:38 HIV 1&2 Antibody Screen Negative (NEGATIVE) 07/11/17 08:38 - Hospital Course Hospital Course: Patient presented to the hospital with 2 week history of nausea vomiting diarrhea and right upper quadrant pain. Patient was evaluated in the [facility] Emergency Room and the ultrasound shows cholelithiasis with no pericolic fluid. Pancreas was also normal. WBC count was 12,000 and patient was admitted for possible acute cholecystitis Pt has lost 50 pounds in the last 1 year Patient was admitted to the floor. IV fluid was given and Zofran. Patient improved on Pepcid. GI and ID were consulted. Patient underwent an endoscopy and a colonoscopy. There was no any acute pathology in either of the test. There were some polyps which were removed. Patient improved on IV fluids. C. difficile was still pending. Patient is currently feeling better will discharge and follow up outpatient for further treatment. Discharge Exam - Head Exam Head Exam: NORMAL INSPECTION Discharge Plan - Discharge Medications Prescriptions: Potassium Chloride [K-Dur 20] 20 meq PO DAILY #7 tab Magnesium Oxide [Mag-Ox] 400 mg PO DAILY #7 tab - Follow Up Plan Condition: STABLE Disposition: HOME/ ROUTINE Instructions: Hemorrhoids, Gastritis (DC), Magnesium Oxide, Potassium Chloride Additional Instructions: Can follow up with Dr. Giles Andre in clinic for elective peace after full GI workup including colonoscopy and EGD have been performed. Referrals: Mary Chawla MD [Staff Provider] - Pollo Andre MD [Staff Provider] -
[2017-07-15 16:21] VITALS: BP 125/84; PULSE 79; TEMP 98.5; O2SAT 99
[2017-07-16] MEDS ORDERED: Potassium Chloride 20 mEq ER Tab PO SCH (10:00)
== END 2017-07-15 19:00 | disposition home or self-care (01) | DRG 445 ==
LOC: C.ER 18:21 → UNDOADMOB 22:04 → C.9E 22:04 → INTOOBSV 22:36 → OBSVTOIN 22:36 → C.6T 23:33 → C.3T 07-12 00:47
PROVIDERS: ADMIT Internal Medicine Cardiovascular Disease; ATTEND Internal Medicine Cardiovascular Disease
PROC: 0DB68ZX Excision of Stomach, Via Natural or Artificial Opening Endoscopic, Diagnostic (ICD-10-PCS; 2017-07-14)
PROC: 0DB58ZX Excision of Esophagus, Via Natural or Artificial Opening Endoscopic, Diagnostic (ICD-10-PCS; 2017-07-14)
PROC: 0DBM8ZX Excision of Descending Colon, Via Natural or Artificial Opening Endoscopic, Diagnostic (ICD-10-PCS; principal; 2017-07-14 07:30)
PROC: 0DB98ZX Excision of Duodenum, Via Natural or Artificial Opening Endoscopic, Diagnostic (ICD-10-PCS; 2017-07-14 07:30)
DX: K80.00 Calculus of gallbladder with acute cholecystitis without obstruction (principal); K50.10 Crohn's disease of large intestine without complications; E87.6 Hypokalemia; F32.9 Major depressive disorder, single episode, unspecified; F43.10 Post-traumatic stress disorder, unspecified; F17.210 Nicotine dependence, cigarettes, uncomplicated; R63.4 Abnormal weight loss; D12.2 Benign neoplasm of ascending colon; D12.4 Benign neoplasm of descending colon; D12.3 Benign neoplasm of transverse colon; D12.5 Benign neoplasm of sigmoid colon

== ENCOUNTER 2017-08-12 06:50 | Day surgery (SDC) | payer MEDICARE ==
--- NOTE | 2017-08-12 09:14 | CP.SDSHP ---
Same Day Surgery H & P - History Proposed Procedure: colonoscopy Pre-Op Diagnosis: history of polyps - Previous Medical/Surgical History Comments: depression - Allergies Allergies: Allergies shrimp Allergy (Verified 08/12/17 07:28) SWELLING Swelling of the Lips - Physical Exam General Appearance: NAD Vital Signs: Vital Signs 08/12/17 07:05 Temperature 96.9 F L Pulse Rate 80 Respiratory 20 Rate Blood Pressure 121/78 O2 Sat by Pulse 99 Oximetry Mental Status: Alert & Oriented x3 Neuro: WNL Heart: WNL Lungs: WNL GI: WNL - {Optional Preform as Required} Abdomen: WNL - Impression Pt. Evaluated Today:Candidate for Anesthesia & Procedure: Yes - Date & Time Date: 08/12/17 Time: 09:14 Short Stay Discharge - Short Stay Discharge Admitting Diagnosis/Reason for Visit: COLONIC POLYPS Disposition: HOME/ ROUTINE
[2017-08-12] MEDS ORDERED: Propofol 10 mg/ml Inj (20 ML) ONE ×2 (09:16→09:58)
[2017-08-12] MEDS ORDERED: Lidocaine Hydrochloride 5 ML INJ ONE (09:19)
[2017-08-12 10:33] VITALS: TEMP 97.5
[2017-08-12 10:59] VITALS: BP 118/90; PULSE 77; RESP 13; O2SAT 96
== END 2017-08-12 11:19 | disposition home or self-care (01) ==
LOC: C.ENDO 06:50
PROVIDERS: ATTEND Internal Medicine Gastroenterology
DX: D12.2 Benign neoplasm of ascending colon (principal); D12.0 Benign neoplasm of cecum; D12.3 Benign neoplasm of transverse colon; K57.90 Diverticulosis of intestine, part unspecified, without perforation or abscess without bleeding; Z86.010 Personal history of colon polyps; F32.9 Major depressive disorder, single episode, unspecified
CPT/HCPCS: 45384; 45385; 88305; J2704

== ENCOUNTER 2017-09-26 18:20 | Inpatient (IN) | payer MEDICARE ==
[2017-09-26] MEDS ORDERED: Sodium Chloride 0.9% 1,000 ML IV ONE ×2 (19:16→20:00)
--- NOTE | 2017-09-26 19:16 | C.PDOC ---
History Of Present Illness 62 year old female presents to the ED c/o nausea, vomit, not tolerating PO intake for the past 4-5 days. Patient states her vomit is bilious. Patient denies fever, chills, diarrhea, dysuria, recent travel, sick contacts. Time Seen by Provider: 09/26/17 19:08 Chief Complaint (Nursing): Dizziness/Lightheaded History Per: Patient History/Exam Limitations: no limitations Onset/Duration Of Symptoms: Days (4-5) Current Symptoms Are (Timing): Still Present Associated Symptoms Preceding Syncopal Episode: No Predromal Symptoms (Sudden Onset) Seizure Or Post-ictal Symptoms: None Fall Associated With With Symptoms: No Severity: None Recent travel outside of the [place]: No Additional History Per: Patient Past Medical History Reviewed: Historical Data, Nursing Documentation, Vital Signs Vital Signs: Last Vital Signs Temp 98.3 F 09/26/17 18:26 Pulse 101 H 09/26/17 21:50 Resp 17 09/26/17 21:50 BP 114/77 09/26/17 21:50 Pulse Ox 99 09/26/17 22:22 - Medical History PMH: Anemia, Depression Denies: Atrial Fibrillation, Cardia Arrhythmia, CHF, HTN, Hypercholesterolemia, Mitral Valve Prolapse, Peripheral Edema, Chronic Kidney Disease Surgical History: No Surg Hx Denies: Pacemaker - [facility] Procedures EXCISION OF ASCENDING COLON, ENDO, DIAGN (07/09/17) EXCISION OF DESCENDING COLON, ENDO, DIAGN (07/09/17) EXCISION OF DUODENUM, ENDO, DIAGN (07/09/17) EXCISION OF ESOPHAGUS, ENDO, DIAGN (07/09/17) EXCISION OF STOMACH, ENDO, DIAGN (07/09/17) EXCISION OF TRANSVERSE COLON, ENDO, DIAGN (07/09/17) Family History: States: Unknown Family Hx - Social History Hx Tobacco Use: Yes Hx Alcohol Use: Yes Hx Substance Use: No - Immunization History Hx Tetanus Toxoid Vaccination: No Hx Influenza Vaccination: No Hx Pneumococcal Vaccination: No Review Of Systems Constitutional: Negative for: Fever, Chills Cardiovascular: Negative for: Chest Pain, Palpitations Respiratory: Negative for: Cough, Shortness of Breath Gastrointestinal: Positive for: Nausea, Vomiting, Abdominal Pain Musculoskeletal: Negative for: Back Pain Skin: Negative for: Rash Neurological: Negative for: Weakness, Numbness Physical Exam - Physical Exam Appears: Non-toxic, Other (anxious) Skin: Warm, Dry Head: Normacephalic Eye(s): bilateral: Normal Inspection Oral Mucosa: Dry Throat: No Erythema, No Exudate Neck: Supple Chest: Symmetrical Cardiovascular: Rhythm Regular Respiratory: No Rales, No Rhonchi, No Wheezing Gastrointestinal/Abdominal: Soft, Tenderness (mild epigastric), No Guarding, No Rebound Rectal: Heme Positive, No Hemorrhoids, No Mass Back: Normal Inspection Extremity: No Tenderness, No Swelling Extremity: Bilateral: Atraumatic, Normal Color And Temperature, Normal ROM Pulses: Left Dorsalis Pedis: Normal, Right Dorsalis Pedis: Normal Neurological/Psych: Oriented x3, Normal Speech Gait: Steady ED Course And Treatment - Laboratory Results Result Diagrams: 09/26/17 19:30 09/26/17 19:30 O2 Sat by Pulse Oximetry: 99 (ON RA) Pulse Ox Interpretation: Normal - Radiology CXR: Interpreted by Me, Viewed By Me CXR Interpretation: No: Infiltrates, Fracture, Pnemothorax - Other Rad obstr X-Ray: Interpreted by Me, Viewed By Me Interpretation: no free air or obstr Progress Note: Plan: - Labs. - Protonix 40 mg IVP. - IV fluids. - Zofran 4 mg IVP. - UA Disposition Discussed With DrАнна: Rashad Carmona Comment: accepted the pt on his service and took over the care at 10:30 PM Doctor Will See Patient In The: Hospital Counseled Patient/Family Regarding: Studies Performed, Diagnosis - Disposition Disposition: HOSPITALIZED Disposition Time: 19:16 Condition: FAIR Forms: [facility] (Lithuanian) - POA Present On Arrival: Poor Glycemic Control - Clinical Impression Clinical Impression: Dizziness, Intractable vomiting with nausea, Hypokalemia - Scribe Statement The provider has reviewed the documentation as recorded by the Scribe Geovanny Cifuentes All medical record entries made by the Scribe were at my direction and personally dictated by me. I have reviewed the chart and agree that the record accurately reflects my personal performance of the history, physical exam, medical decision making, and the department course for this patient. I have also personally directed, reviewed, and agree with the discharge instructions and disposition. Decision To Admit - Pt Status Changed To: Hospital Disposition Of: Inpatient - Admit Certification Admit to Inpatient:: After my assessment, the patient will require hospitalization for at least two midnights. This is because of the severity of symptoms shown, intensity of services needed, and/or the medical risk in this patient being treated as an outpatient. - InPatient: Physician Admission Certification: I certify that this patient requires 2 or more midnights of care for the following reason:: After my assessment, the patient will require hospitalization for at least two midnights. This is because of the severity of symptoms shown, intensity of services needed, and/or the medical risk in this patient being treated as an outpatient. - . Bed Request Type: Regular Admitting Physician: Rashad Carmona Patient Diagnosis: Dizziness, Intractable vomiting with nausea, Hypokalemia
[2017-09-26] MEDS ORDERED: Sodium Chloride 0.9% 1,000 ML ONE ×2 (19:26→20:12)
[2017-09-26 19:33] LABS: BASO # 0.1 K/uL (0.0-0.2); BASO % 0.6 % (0.0-2.0); EOS % 0.3 % (0.0-4.0); HEMOGLOBIN 15.7 g/dL (11.0-16.0); LYMPH % 16.4 % (20.0-40.0); MEAN CELL VOLUME 100.8 fL (81.0-99.0); MEAN CORPUSCULAR HEMOGLOBIN 34.2 pg (27.0-31.0); MEAN CORPUSCULAR HGB CONC 33.9 g/dL (33.0-37.0); MEAN PLATELET VOLUME 8.8 fL (7.2-11.7); MONO # 1.4 K/uL (0.0-0.8); MONO % 11.9 % (0.0-10.0); NEUT # 8.5 K/uL (1.8-7.0); NEUT % 70.8 % (50.0-75.0); RBC 4.58 Mil/uL (3.80-5.20); RED CELL DISTRIBUTION WIDTH 14.8 % (11.5-14.5)
[2017-09-26 19:42] LABS: INR 1.1; PROTHROMBIN TIME 11.5 SECONDS (9.7-12.2)
[2017-09-26 19:46] LABS: ALB/GLOB RATIO 1.2 (1.0-2.1); ALBUMIN 3.7 g/dL (3.5-5.0); ALT/SGPT 26 U/L (9-52); AST/SGOT 27 U/L (14-36); BLOOD UREA NITROGEN 8 mg/dL (7-17); CALCIUM 9.1 mg/dl (8.6-10.4); GFR AFRICAN-AMERICAN > 60; GFR NON-AFRICAN AMERICAN > 60; LIPASE 39 U/L (23-300)
[2017-09-26] MEDS ORDERED: Potassium Chloride 20 mEq 100 ML ONE (19:50)
[2017-09-26 20:28] LABS: SQUAMOUS EPITHIAL < 1 /hpf (0-5); URINE BACTERIA OCC (<OCC); URINE BILIRUBIN NEGATIVE (NEGATIVE); URINE BLOOD NEGATIVE (NEGATIVE); URINE CLARITY Clear (Clear); URINE COLOR Yellow (YELLOW); URINE GLUCOSE (UA) NORMAL (Normal); URINE LEUKOCYTE ESTERASE NEG Leu/uL (Negative); URINE PROTEIN NEGATIVE (NEGATIVE); URINE UROBILINOGEN NORMAL mg/dL (0.2-1.0)
[2017-09-26] MEDS: Potassium Ch 20mEq in D5-1/2NS 1,000 ML IV SCH (22:51)
[2017-09-27 05:21] LABS: MEAN CELL VOLUME 101.2 fL (81.0-99.0); MEAN CORPUSCULAR HEMOGLOBIN 34.6 pg (27.0-31.0); MEAN CORPUSCULAR HGB CONC 34.2 g/dL (33.0-37.0); MEAN PLATELET VOLUME 8.4 fL (7.2-11.7); RBC 3.8 Mil/uL (3.80-5.20); RED CELL DISTRIBUTION WIDTH 14.9 % (11.5-14.5); WHITE BLOOD COUNT 9.3 K/uL (4.8-10.8)
[2017-09-27 05:51] LABS: BLOOD UREA NITROGEN 4 mg/dL (7-17); GFR AFRICAN-AMERICAN > 60; GFR NON-AFRICAN AMERICAN > 60
[2017-09-27] MEDS ORDERED: Potassium Chloride 20 mEq 100 ML ONE ×2 (07:06→12:01)
[2017-09-27 07:32] LABS: HEMOGLOBIN 13.2 g/dL (11.0-16.0)
[2017-09-27] MEDS: Potassium Ch 20mEq in D5-1/2NS 1,000 ML IV SCH ×2 (09:00→18:20)
[2017-09-27] MEDS: Enoxaparin 30 mg Syringe SC SCH (09:40)
--- NOTE | 2017-09-27 15:20 | RAD ---
Date of service: 09/26/2017 PROCEDURE: Radiographs of the chest and abdomen (obstructive series) HISTORY: n/v COMPARISON: No prior. TECHNIQUE: AP radiograph of the chest, with upright and supine radiographs of the abdomen. FINDINGS: CHEST: Lungs: Clear. Cardiovascular: Normal size heart. No pulmonary vascular congestion. Pleura: No pleural fluid. No pneumothorax. Other findings: None. ABDOMEN AND PELVIS: Bowel: Unremarkable bowel gas pattern. No evidence of mechanical obstruction. Free air: None. Bones: Unremarkable. Other findings: None. IMPRESSION: Unremarkable radiographs of chest and abdomen. No evidence of mechanical bowel obstruction.
[2017-09-27 15:44] LABS: BLOOD UREA NITROGEN 2 mg/dL (7-17); CALCIUM 8.1 mg/dl (8.6-10.4); GFR AFRICAN-AMERICAN > 60; GFR NON-AFRICAN AMERICAN > 60
--- NOTE | 2017-09-27 22:10 | CP.PCM.HP ---
History of Present Illness - History of Present Illness History of Present Illness: History Of Present Illness 62 year old female presents to the ED c/o nausea, vomit, not tolerating PO intake for the past 4-5 days. Patient states her vomit is bilious. Patient denies fever, chills, diarrhea, dysuria, recent travel, sick contacts. Past Patient History - Past Medical History & Family History Past Medical History?: Yes - Past Social History Smoking Status: Heavy Smoker > 10 Cigarettes Daily - CARDIAC Hx Cardiac Disorders: No Hx Atrial Fibrillation: No Hx Cardia Arrhythmia: No Hx Congestive Heart Failure: No Hx Hypercholesterolemia: No Hx Hypertension: No Hx Mitral Valve Prolapse: No Hx Pacemaker: No Hx Peripheral Edema: No - PULMONARY Hx Respiratory Disorders: No - NEUROLOGICAL Hx Neurological Disorder: No - HEENT Hx HEENT Problems: No Other/Comment: Wears Eyeglasses for reading - RENAL Hx Chronic Kidney Disease: No - ENDOCRINE/METABOLIC Hx Endocrine Disorders: No - HEMATOLOGICAL/ONCOLOGICAL Hx Blood Disorders: Yes Hx Anemia: Yes - INTEGUMENTARY Hx Dermatological Problems: No - MUSCULOSKELETAL/RHEUMATOLOGICAL Hx Musculoskeletal Disorders: Yes Hx Falls: No Hx Herniated Disk: Yes (PATIENT STATES SHE HAS 3 BULGING DISCS LEFT THORACIC AREA) - GASTROINTESTINAL Hx Gastrointestinal Disorders: Yes Other/Comment: H/O RUPTURED AP, EXPLOR LAP DONE - GENITOURINARY/GYNECOLOGICAL Hx Genitourinary Disorders: No Other/Comment: kidney stones - PSYCHIATRIC Hx Psychophysiologic Disorder: Yes Hx Depression: Yes Hx Substance Use: No - SURGICAL HISTORY Hx Surgeries: Yes Hx Appendectomy: Yes (1982) Hx Arthroscopy: Yes (S/P RIGHT KNEE MENISCUS TEAR) Other/Comment: ORAL SURGERY, URETEROSCOPY FOR KIDNEY STONES. - ANESTHESIA Hx Anesthesia: Yes Hx Anesthesia Reactions: No Hx Malignant Hyperthermia: No Meds Allergies/Adverse Reactions: Allergies Allergy/AdvReac Type Severity Reaction Status Date / Time shrimp Allergy SWELLING Verified 09/26/17 18:28 Results - Vital Signs Recent Vital Signs: Last Vital Signs Temp 98.1 F 09/27/17 15:50 Pulse 97 H 09/27/17 19:16 Resp 18 09/27/17 19:16 BP 118/76 09/27/17 18:18 Pulse Ox 94 L 09/27/17 15:50 - Labs Result Diagrams: 09/27/17 05:18 09/27/17 14:49 Labs: Laboratory Results - last 24 hr 09/27/17 09/27/17 09/27/17 05:18 05:18 14:49 WBC 9.3 RBC 3.80 Hgb 13.2 D Hct 38.5 MCV 101.2 H MCH 34.6 H MCHC 34.2 RDW 14.9 H Plt Count 218 MPV 8.4 Sodium 142 143 Potassium 2.7 L 3.7 Chloride 101 105 Carbon Dioxide 31 H 26 Anion Gap 13 16 BUN 4 L 2 L Creatinine 0.5 L 0.5 L Est GFR ( Amer) > 60 > 60 Est GFR (Non-Af Amer) > 60 > 60 Random Glucose 111 H 98 Calcium 8.0 L 8.1 L Magnesium 1.3 L
--- NOTE | 2017-09-27 22:11 | CP.PCM.PN ---
Subjective - Date & Time of Evaluation Date of Evaluation: 09/27/17 Time of Evaluation: 18:00 - Subjective Subjective: Pt seen and examined at bedside Objective - Vital Signs/Intake and Output Vital Signs (last 24 hours): Temp Pulse Resp BP Pulse Ox 98.1 F 97 H 18 118/76 94 L 09/27/17 15:50 09/27/17 19:16 09/27/17 19:16 09/27/17 18:18 09/27/17 15:50 Intake and Output: 09/27/17 09/28/17 18:59 06:59 Intake Total 425 200 Balance 425 200 - Medications Medications: Current Medications Enoxaparin Sodium (Lovenox) 40 mg SC DAILY [facility] Last Admin: 09/27/17 09:40 Dose: Not Given Famotidine (Pepcid) 20 mg IVP Q12 [facility] Last Admin: 09/27/17 21:59 Dose: 20 mg Potassium Chloride/Dextrose/Sod Cl (Potassium Chl 20 Meq In D5-1/2ns) 1,000 mls @ 100 mls/hr IV .Q10H [facility] Last Admin: 09/27/17 18:20 Dose: 100 mls/hr Ondansetron HCl (Zofran Inj) 4 mg IVP Q6 PRN PRN Reason: Nausea/Vomiting Last Admin: 09/27/17 20:34 Dose: 4 mg Quetiapine Fumarate (Seroquel) 100 mg PO HS [facility] Last Admin: 09/27/17 22:01 Dose: 100 mg Zolpidem Tartrate (Ambien) 5 mg PO HS PRN PRN Reason: Insomnia Last Admin: 09/27/17 22:02 Dose: 5 mg - Labs Labs: 09/27/17 05:18 09/27/17 14:49 PT 11.5 SECONDS (9.7-12.2) 09/26/17 19:30 INR 1.1 09/26/17 19:30 APTT 30 SECONDS (21-34) 09/26/17 19:30
[2017-09-28] MEDS: Potassium Ch 20mEq in D5-1/2NS 1,000 ML IV SCH (04:24)
[2017-09-28 08:18] VITALS: RESP 20
--- NOTE | 2017-09-28 08:44 | CP.PCM.CON ---
<Tres Thorpe - Last Filed: 09/28/17 11:43> History of Present Illness - History of Present Illness History of Present Illness: PGY-4 GI Fellow Initial Consult Note Pt is a 62 yo WF with h/o Depression/Anxiety, Tob Abuse, EtOH Abuse presenting with nausea and vomiting. She states that she has been dealing with these symptoms for years but that over the last few days her symptoms have been worse with multiple episodes per day. She states that she feels nauseous just looking at food at times. She also reports phlegm building up in her face and working is way down her making her nauseous with eventual emesis. States that emesis is whitish or consisting of PO intake, denying any black or bilious emesis. She also reports some dysphagia to both solids and liquids, feeling at though they get stuck in her mid sternal area for about 30-60 min, often getting thrown back up. She reports about a 5 lb weight loss over the last several weeks, decreased energy and PO intake. She denies any abdominal pain, f /c and states that her last BM was yesterday with formed, brown stool. ROS: 12 point ROS negative other than stated above PMH: Anxiety, Depression PSH: Repair of minscal tear 2016, Appendectomy 1980s(Exlap) --- EGD: 07/14/17 with Reflux Esophagitis, 1 cm HH, Gastritis (Hp -), Bx of esophagus with --- CSPY: 08/12/17 with multiple polyps (>5) with 1 18 mm polyp in cecum, all polyps tubular adenomas with 1 hyperplastic polyp Meds: Reviewed in chart Family Hx: reviewed; denies any GI related malignancies Social: 1 shot rebecca per night with 4-5 drinks/night on weekends, 0.5 pack/day with ~7 pack years, no drugs All: Shrimp Past Patient History - Past Medical History & Family History Past Medical History?: Yes - Past Social History Smoking Status: Heavy Smoker > 10 Cigarettes Daily - CARDIAC Hx Cardiac Disorders: No Hx Atrial Fibrillation: No Hx Cardia Arrhythmia: No Hx Congestive Heart Failure: No Hx Hypercholesterolemia: No Hx Hypertension: No Hx Mitral Valve Prolapse: No Hx Pacemaker: No Hx Peripheral Edema: No - PULMONARY Hx Respiratory Disorders: No - NEUROLOGICAL Hx Neurological Disorder: No - HEENT Hx HEENT Problems: No Other/Comment: Wears Eyeglasses for reading - RENAL Hx Chronic Kidney Disease: No - ENDOCRINE/METABOLIC Hx Endocrine Disorders: No - HEMATOLOGICAL/ONCOLOGICAL Hx Blood Disorders: Yes Hx Anemia: Yes - INTEGUMENTARY Hx Dermatological Problems: No - MUSCULOSKELETAL/RHEUMATOLOGICAL Hx Musculoskeletal Disorders: Yes Hx Falls: No Hx Herniated Disk: Yes (PATIENT STATES SHE HAS 3 BULGING DISCS LEFT THORACIC AREA) - GASTROINTESTINAL Hx Gastrointestinal Disorders: Yes Other/Comment: H/O RUPTURED AP, EXPLOR LAP DONE - GENITOURINARY/GYNECOLOGICAL Hx Genitourinary Disorders: No Other/Comment: kidney stones - PSYCHIATRIC Hx Psychophysiologic Disorder: Yes Hx Depression: Yes Hx Substance Use: No - SURGICAL HISTORY Hx Surgeries: Yes Hx Appendectomy: Yes (1982) Hx Arthroscopy: Yes (S/P RIGHT KNEE MENISCUS TEAR) Other/Comment: ORAL SURGERY, URETEROSCOPY FOR KIDNEY STONES. - ANESTHESIA Hx Anesthesia: Yes Hx Anesthesia Reactions: No Hx Malignant Hyperthermia: No Meds Allergies/Adverse Reactions: Allergies Allergy/AdvReac Type Severity Reaction Status Date / Time shrimp Allergy SWELLING Verified 09/26/17 18:28 - Medications Medications: Current Medications Enoxaparin Sodium (Lovenox) 40 mg SC DAILY [facility] Last Admin: 09/27/17 09:40 Dose: Not Given Famotidine (Pepcid) 20 mg IVP Q12 [facility] Last Admin: 09/27/17 21:59 Dose: 20 mg Potassium Chloride/Dextrose/Sod Cl (Potassium Chl 20 Meq In D5-1/2ns) 1,000 mls @ 100 mls/hr IV .Q10H [facility] Last Admin: 09/28/17 04:24 Dose: 100 mls/hr Ondansetron HCl (Zofran Inj) 4 mg IVP Q6 PRN PRN Reason: Nausea/Vomiting Last Admin: 09/27/17 20:34 Dose: 4 mg Quetiapine Fumarate (Seroquel) 100 mg PO HS [facility] Last Admin: 09/27/17 22:01 Dose: 100 mg Zolpidem Tartrate (Ambien) 5 mg PO HS PRN PRN Reason: Insomnia Last Admin: 09/27/17 22:02 Dose: 5 mg Physical Exam - Constitutional Appears: Well, Non-toxic, No Acute Distress - Head Exam Head Exam: ATRAUMATIC, NORMAL INSPECTION - Eye Exam Eye Exam: EOMI. absent: Conjunctival injection, Scleral icterus - ENT Exam ENT Exam: Mucous Membranes Dry, Normal External Ear Exam. absent: Mucous Membranes Moist - Respiratory Exam Respiratory Exam: Clear to Auscultation Bilateral, NORMAL BREATHING PATTERN. absent: Accessory Muscle Use, Wheezes - Cardiovascular Exam Cardiovascular Exam: REGULAR RHYTHM, RRR. absent: Tachycardia - GI/Abdominal Exam GI & Abdominal Exam: Normal Bowel Sounds, Soft. absent: Diminished Bowel Sounds , Distended, Firm, Guarding, Hernia, Hyperactive Bowel Sounds, Hypoactive Bowel Sounds, Mass, Organomegaly, Pulsatile Mass, Rebound, Rigid, Tenderness - Rectal Exam Rectal Exam: Deferred - Extremities Exam Extremities exam: Positive for: normal inspection. Negative for: pedal edema - Neurological Exam Neurological exam: Alert, CN II-XII Intact - Psychiatric Exam Psychiatric exam: Normal Affect, Normal Mood - Skin Skin Exam: Normal Color, Warm Results - Vital Signs Recent Vital Signs: Last Vital Signs Temp 97.6 F 09/28/17 07:00 Pulse 88 09/28/17 07:00 Resp 20 09/28/17 07:00 BP 117/73 09/28/17 07:00 Pulse Ox 95 09/28/17 07:00 - Labs Result Diagrams: 09/27/17 05:18 09/27/17 14:49 Labs: Laboratory Results - last 24 hr 09/27/17 14:49 Sodium 143 Potassium 3.7 Chloride 105 Carbon Dioxide 26 Anion Gap 16 BUN 2 L Creatinine 0.5 L Est GFR ( Amer) > 60 Est GFR (Non-Af Amer) > 60 Random Glucose 98 Calcium 8.1 L Assessment & Plan - Assessment and Plan (Free Text) Assessment: 62 yo WF with Anx/Depression, Tob and EtOH Abuse presenting with nausea and vomiting. # Acute on Chronic Nausea/Vomiting: Chronic issue for patient with unclear reason why acutely worse. Pt with concerning reports of dysphagia with ongoing risk factors of tobacco and EtOH abuse. However, reassuringly, EGD from with out mass or severe disease to explain symptoms. Biopsies with non- specific inflammation, Hp - biopsies from stomach. Per review of OP records, previously had liver test abnormalities with plans for MRI. Plan: - HCT to eval for intracranial cause - MRI Abd and GI Series Radiographs w/contrast - Full Liq Diet - Supportive Care - Consider Manometry as OP should symptoms persist without clear etiology Pt seen and examined with Dr. Otero <Elmer Otero - Last Filed: 09/28/17 15:34> Meds - Medications Medications: Current Medications Enoxaparin Sodium (Lovenox) 40 mg SC DAILY [facility] Last Admin: 09/28/17 10:03 Dose: Not Given Famotidine (Pepcid) 20 mg IVP Q12 [facility] Last Admin: 09/28/17 10:05 Dose: 20 mg Potassium Chloride/Dextrose/Sod Cl (Potassium Chl 20 Meq In D5-1/2ns) 1,000 mls @ 100 mls/hr IV .Q10H [facility] Last Admin: 09/28/17 04:24 Dose: 100 mls/hr Ondansetron HCl (Zofran Inj) 4 mg IVP Q6 PRN PRN Reason: Nausea/Vomiting Last Admin: 09/27/17 20:34 Dose: 4 mg Quetiapine Fumarate (Seroquel) 100 mg PO HS [facility] Last Admin: 09/27/17 22:01 Dose: 100 mg Zolpidem Tartrate (Ambien) 5 mg PO HS PRN PRN Reason: Insomnia Last Admin: 09/27/17 22:02 Dose: 5 mg Results - Vital Signs Recent Vital Signs: Last Vital Signs Temp 97.6 F 09/28/17 07:00 Pulse 88 09/28/17 07:00 Resp 20 09/28/17 07:00 BP 117/73 09/28/17 07:00 Pulse Ox 95 09/28/17 07:00 - Labs Result Diagrams: 09/27/17 05:18 09/27/17 14:49 Labs: Laboratory Results - last 24 hr 09/26/17 09/27/17 18:42 14:49 Sodium 143 Potassium 3.7 Chloride 105 Carbon Dioxide 26 Anion Gap 16 BUN 2 L Creatinine 0.5 L Est GFR ( Amer) > 60 Est GFR (Non-Af Amer) > 60 POC Glucose (mg/dL) 98 Random Glucose 98 Calcium 8.1 L Attending/Attestation - Attestation I have personally seen and examined this patient.: Yes I have fully participated in the care of the patient.: Yes I have reviewed all pertinent clinical information: Yes Notes (Text): 09/28/17 15:29 I have seen and examined patient with GI fellow. Agree with above documentation with the following additions. In brief, this is a 62 year old female with history of depression/anxiety who presents to hospital with complaint of persistent nausea and vomiting. She has been dealing with these symptoms intermittently for the past several months but has gotten worse over the past 2 weeks. She describes post prandial nausea with vomiting and a sense that food is getting "stuck" while pointing to her chest. She denies fever/ chills or change in bowel habits but does report a weight loss of nearly 10 pounds since the beginning of the year. She had an EGD in June 2017 performed which showed esophagitis, gastritis (HP negative), hiatal hernia and colonoscopy in July 2017 showing multiple adenomatous polyps. She continues to consume ETOH on daily basis. Review of vitals from today are normal. Anxiety/depression Nausea, vomiting - unclear etiology, recent EGD without significant findings - Full liquid diet as tolerated - Obtain CT imaging of head to rule out intracranial process - Obtain MRI abdomen with contrast given prior hepatic abnormality visualized on CT imaging - Obtain upper GI series, rule out obstructive pathology - Anti-emetic therapy PRN - If workup is negative and symptoms persist, patient would likely benefit from outpatient esophageal manometry testing. Will continue to monitor patient clinical course.
[2017-09-28] MEDS: Enoxaparin 30 mg Syringe SC SCH (10:03)
[2017-09-28] MEDS ORDERED: Gadodiamide 287 MG/ML VIAL (15ML) IV ONE (11:31)
--- NOTE | 2017-09-28 13:30 | CT ---
Date of service: 09/28/2017 PROCEDURE: CT HEAD WITHOUT CONTRAST. HISTORY: Persistant N/V COMPARISON: Comparison is made with 12/21/2013 TECHNIQUE: Axial computed tomography images were obtained through the head/brain without intravenous contrast. Radiation dose: Total exam DLP = 862.97 mGy-cm. This CT exam was performed using one or more of the following dose reduction techniques: Automated exposure control, adjustment of the mA and/or kV according to patient size, and/or use of iterative reconstruction technique. FINDINGS: HEMORRHAGE: No intracranial hemorrhage. BRAIN: No mass effect or edema. No atrophy or chronic microvascular ischemic changes. VENTRICLES: Unremarkable. No hydrocephalus. CALVARIUM: Unremarkable. PARANASAL SINUSES: Unremarkable as visualized. No significant inflammatory changes. MASTOID AIR CELLS: Unremarkable as visualized. No inflammatory changes. OTHER FINDINGS: None. IMPRESSION: No evidence of acute intracranial hemorrhage intracranial collection mass effect or midline shift.
--- NOTE | 2017-09-28 17:46 | MRI ---
Date of service: 09/28/2017 PROCEDURE: MRI Abdomen with and without contrast HISTORY: Abnormal appearance of the liver in the prior CT dated 07/10/2017. Now with persistent vomiting COMPARISON: Comparison is made with the previous CT of the abdomen and pelvis dated 07/10/2017. TECHNIQUE: Multisequence, multiplanar MR images of the abdomen with and without gadolinium contrast enhancement. FINDINGS: LIVER: The liver is mildly enlarged measures up to 19.2 centimeter in the longitudinal diameter. There is with defined focal area at the central portion of the right liver lobe demonstrate slight increased signal in the T2 images. This area demonstrate significant signal drop in the out of phase T1 images compared to the inphase images suggestive of focal fatty infiltration. No evidence of abnormal enhancement or enhancing mass lesion in the liver. GALLBLADDER: Multiple gallstones seen in the gallbladder. No evidence of acute cholecystitis. The common bile duct is normal in caliber and shape. No evidence of intrahepatic or extrahepatic biliary ductal dilatation. SPLEEN: Unremarkable. PANCREAS: Unremarkable. ADRENALS: Unremarkable. KIDNEYS: There is a cyst seen in the upper pole of the right kidney measures 2 centimeter. The kidneys enhance symmetrically without evidence of hydronephrosis. There is a cyst on the midpole of the left kidney measures 0.8 centimeter. AORTA: No aneurysm. ASCITES: None. PERITONEUM: Unremarkable. LYMPH NODES: Unremarkable. OTHER FINDINGS: None. IMPRESSION: No evidence of enhancing mass lesion in the liver. Well defined focal area in the central portion of the liver demonstrates significant signal drop in the T1 out of phase suggestive of focal fatty infiltration. Cholelithiasis without evidence of acute cholecystitis. No evidence of choledocholithiasis.
--- NOTE | 2017-09-28 20:53 | CP.PCM.PN ---
Objective - Vital Signs/Intake and Output Vital Signs (last 24 hours): Temp Pulse Resp BP Pulse Ox 97.9 F 70 20 135/82 95 09/28/17 15:00 09/28/17 15:00 09/28/17 15:00 09/28/17 15:00 09/28/17 15:00 - Medications Medications: Current Medications Enoxaparin Sodium (Lovenox) 40 mg SC DAILY [facility] Last Admin: 09/28/17 10:03 Dose: Not Given Famotidine (Pepcid) 20 mg IVP Q12 [facility] Last Admin: 09/28/17 10:05 Dose: 20 mg Potassium Chloride/Dextrose/Sod Cl (Potassium Chl 20 Meq In D5-1/2ns) 1,000 mls @ 100 mls/hr IV .Q10H [facility] Last Admin: 09/28/17 04:24 Dose: 100 mls/hr Ondansetron HCl (Zofran Inj) 4 mg IVP Q6 PRN PRN Reason: Nausea/Vomiting Last Admin: 09/27/17 20:34 Dose: 4 mg Quetiapine Fumarate (Seroquel) 100 mg PO HS [facility] Last Admin: 09/27/17 22:01 Dose: 100 mg Zolpidem Tartrate (Ambien) 5 mg PO HS PRN PRN Reason: Insomnia Last Admin: 09/27/17 22:02 Dose: 5 mg - Labs Labs: 09/27/17 05:18 09/27/17 14:49 PT 11.5 SECONDS (9.7-12.2) 09/26/17 19:30 INR 1.1 09/26/17 19:30 APTT 30 SECONDS (21-34) 09/26/17 19:30
[2017-09-29] MEDS: Potassium Ch 20mEq in D5-1/2NS 1,000 ML IV SCH ×3 (00:56→22:02)
--- NOTE | 2017-09-29 07:46 | CP.PCM.PN ---
<Tres Thorpe - Last Filed: 09/29/17 09:09> Subjective - Date & Time of Evaluation Date of Evaluation: 09/29/17 Time of Evaluation: 07:15 - Subjective Subjective: PGY-4 GI Fellow Prog Note Pt lying in bed this AM. States hasn't tried eating much but would like diet to be advanced to something more solid. Still with some mild nausea but plans ot take PRN med prior to next meal to heal. Denied emesis and is not sure when last BM was but states was normal. 5 point ROS negative other than stated above Objective - Vital Signs/Intake and Output Vital Signs (last 24 hours): Temp Pulse Resp BP Pulse Ox 98.0 F 95 H 20 108/77 100 09/29/17 00:37 09/29/17 00:37 09/29/17 00:37 09/29/17 00:37 09/29/17 00:37 Intake and Output: 09/29/17 09/29/17 06:59 18:59 Intake Total 1600 Balance 1600 - Medications Medications: Current Medications Enoxaparin Sodium (Lovenox) 40 mg SC DAILY [facility] Last Admin: 09/28/17 10:03 Dose: Not Given Famotidine (Pepcid) 20 mg IVP Q12 [facility] Last Admin: 09/28/17 21:34 Dose: 20 mg Potassium Chloride/Dextrose/Sod Cl (Potassium Chl 20 Meq In D5-1/2ns) 1,000 mls @ 100 mls/hr IV .Q10H [facility] Last Admin: 09/29/17 00:56 Dose: Not Given Ondansetron HCl (Zofran Inj) 4 mg IVP Q6 PRN PRN Reason: Nausea/Vomiting Last Admin: 09/27/17 20:34 Dose: 4 mg Quetiapine Fumarate (Seroquel) 100 mg PO HS [facility] Last Admin: 09/28/17 21:34 Dose: 100 mg Zolpidem Tartrate (Ambien) 5 mg PO HS PRN PRN Reason: Insomnia Last Admin: 09/28/17 23:18 Dose: 5 mg - Labs Labs: 09/27/17 05:18 09/27/17 14:49 PT 11.5 SECONDS (9.7-12.2) 09/26/17 19:30 INR 1.1 09/26/17 19:30 APTT 30 SECONDS (21-34) 09/26/17 19:30 - Constitutional Appears: Non-toxic, No Acute Distress - Head Exam Head Exam: ATRAUMATIC, NORMAL INSPECTION - Eye Exam Eye Exam: EOMI. absent: Conjunctival injection, Scleral icterus - ENT Exam ENT Exam: Mucous Membranes Dry. absent: Normal External Ear Exam - Respiratory Exam Respiratory Exam: NORMAL BREATHING PATTERN. absent: Accessory Muscle Use, Wheezes, Respiratory Distress - GI/Abdominal Exam GI & Abdominal Exam: Soft, Normal Bowel Sounds. absent: Bruit, Distended, Firm , Guarding, Rigid, Tenderness Assessment and Plan - Assessment and Plan (Free Text) Assessment: 62 yo WF with Anx/Depression, Tob and EtOH Abuse presenting with nausea and vomiting. # Acute on Chronic Nausea/Vomiting: Chronic issue for patient with unclear reason why acutely worse. Pt with concerning reports of dysphagia with ongoing risk factors of tobacco and EtOH abuse. However, reassuringly, EGD from with out mass or severe disease to explain symptoms. Biopsies with non- specific inflammation, Hp - biopsies from stomach. Per review of OP records, previously had liver test abnormalities with plans for MRI. HCT to eval for intracranial cause ->unremarkable. MRI Abd with signs of focal fatty liver and cholelithiasis. Plan: - GI Series Radiographs w/contrast pending - Full Liq Diet advancing to Puree post-GI series, if tolerates then can advance more - Supportive Care - Consider Manometry as OP should symptoms persist without clear etiology Pt seen and examined with Dr. Otero <Elmer Otero - Last Filed: 09/29/17 09:21> Objective - Vital Signs/Intake and Output Vital Signs (last 24 hours): Temp Pulse Resp BP Pulse Ox 98.3 F 91 H 20 117/74 95 09/29/17 07:00 09/29/17 07:00 09/29/17 07:00 09/29/17 07:00 09/29/17 07:00 Intake and Output: 09/29/17 09/29/17 06:59 18:59 Intake Total 1600 Balance 1600 - Medications Medications: Current Medications Enoxaparin Sodium (Lovenox) 40 mg SC DAILY [facility] Last Admin: 09/28/17 10:03 Dose: Not Given Famotidine (Pepcid) 20 mg IVP Q12 [facility] Last Admin: 09/28/17 21:34 Dose: 20 mg Potassium Chloride/Dextrose/Sod Cl (Potassium Chl 20 Meq In D5-1/2ns) 1,000 mls @ 100 mls/hr IV .Q10H [facility] Last Admin: 09/29/17 00:56 Dose: Not Given Ondansetron HCl (Zofran Inj) 4 mg IVP Q6 PRN PRN Reason: Nausea/Vomiting Last Admin: 09/27/17 20:34 Dose: 4 mg Quetiapine Fumarate (Seroquel) 100 mg PO HS [facility] Last Admin: 09/28/17 21:34 Dose: 100 mg Zolpidem Tartrate (Ambien) 5 mg PO HS PRN PRN Reason: Insomnia Last Admin: 09/28/17 23:18 Dose: 5 mg - Labs Labs: 09/27/17 05:18 09/27/17 14:49 PT 11.5 SECONDS (9.7-12.2) 09/26/17 19:30 INR 1.1 09/26/17 19:30 APTT 30 SECONDS (21-34) 09/26/17 19:30 Attending/Attestation - Attestation I have personally seen and examined this patient.: Yes I have fully participated in the care of the patient.: Yes I have reviewed all pertinent clinical information, including history, physical exam and plan: Yes Notes (Text): 09/29/17 09:19 I have seen and examined patient with GI fellow. No acute events overnight, she was able to tolerate PO liquids without difficulty. She denies abdominal pain, nausea, vomiting, fever/chills. Review of vitals from today shows tachycardia. Anxiety/Depression Nausea, vomiting - resolved MRI abdomen reviewed by me showing focal fatty sparing in liver, no enhancing mass visualized - Advance diet slowly as tolerated - Awaiting upper GI series to be performed today - if negative, can likely discharge home with subsequent outpatient follow up. She would then benefit from outpatient manometry testing to rule out motility disorder given recurrent symptoms. - Anti-emetic therapy PRN - Will continue to monitor patient clinical course
--- NOTE | 2017-09-29 09:37 | PN ---
Copied To: Rashad Carmona MD Attending MD: Rashad Carmnoa MD DATE: 09/28/2017 SUBJECTIVE: The patient was seen by Dr. Otero who knows the patient from before. He ordered CT of the abdomen and pelvis with contrast. The patient had MRI of abdomen and pelvis. The patient has prior history of GI workup including endoscopy, which showed some nonspecific inflammation on EGD with biopsy. Patient still has nausea, vomiting. She has recurrent nausea and vomiting episode, which is cyclical. No fever, chills. PHYSICAL EXAMINATION: LUNGS: Clear. CARDIOVASCULAR: S1, S2. Regular. ABDOMEN: Soft, regular. ASSESSMENT: 1. Recurrent cyclical nausea and vomiting, etiology unclear. Rule out gastroparesis. Rule out peptic ulcer disease. Could be cholelithiasis. 2. Dehydration. 3. Anxiety and depression. PLAN: Continue symptomatic supportive care. Patient has been seen by GI. Rashad Carmona MD
[2017-09-29] MEDS: Enoxaparin 30 mg Syringe SC SCH (10:52)
--- NOTE | 2017-09-29 23:44 | CP.PCM.PN ---
Objective - Vital Signs/Intake and Output Vital Signs (last 24 hours): Temp Pulse Resp BP Pulse Ox 98 F 97 H 20 124/84 97 09/29/17 15:47 09/29/17 15:47 09/29/17 15:47 09/29/17 15:47 09/29/17 15:47 Intake and Output: 09/29/17 09/30/17 18:59 06:59 Intake Total 0 Balance 0 - Medications Medications: Current Medications Enoxaparin Sodium (Lovenox) 40 mg SC DAILY [facility] Last Admin: 09/29/17 10:52 Dose: Not Given Famotidine (Pepcid) 20 mg IVP Q12 [facility] Last Admin: 09/29/17 22:05 Dose: 20 mg Ondansetron HCl (Zofran Inj) 4 mg IVP Q6 PRN PRN Reason: Nausea/Vomiting Last Admin: 09/27/17 20:34 Dose: 4 mg Quetiapine Fumarate (Seroquel) 100 mg PO HS [facility] Last Admin: 09/29/17 22:05 Dose: 100 mg Zolpidem Tartrate (Ambien) 5 mg PO HS PRN PRN Reason: Insomnia Last Admin: 09/29/17 22:07 Dose: 5 mg - Labs Labs: 09/27/17 05:18 09/27/17 14:49 PT 11.5 SECONDS (9.7-12.2) 09/26/17 19:30 INR 1.1 09/26/17 19:30 APTT 30 SECONDS (21-34) 09/26/17 19:30
--- NOTE | 2017-09-30 06:41 | CP.PCM.PN ---
<Tres Thorpe - Last Filed: 09/30/17 12:13> Subjective - Date & Time of Evaluation Date of Evaluation: 09/30/17 Time of Evaluation: 06:55 - Subjective Subjective: PGY-4 GI Fellow Prog Note Pt lying in bed when seen this AM. States tolerated liquid diet last night with some upset stomach but did not throw up like previous episodes. Eager for possible DC later. 5 point ROS negative other than stated above Objective - Vital Signs/Intake and Output Vital Signs (last 24 hours): Temp Pulse Resp BP Pulse Ox 98.5 F 107 H 20 110/69 97 09/29/17 23:30 09/29/17 23:30 09/29/17 23:30 09/29/17 23:30 09/29/17 23:30 Intake and Output: 09/29/17 09/30/17 18:59 06:59 Intake Total 0 Balance 0 - Medications Medications: Current Medications Enoxaparin Sodium (Lovenox) 40 mg SC DAILY [facility] Last Admin: 09/29/17 10:52 Dose: Not Given Famotidine (Pepcid) 20 mg IVP Q12 [facility] Last Admin: 09/29/17 22:05 Dose: 20 mg Ondansetron HCl (Zofran Inj) 4 mg IVP Q6 PRN PRN Reason: Nausea/Vomiting Last Admin: 09/27/17 20:34 Dose: 4 mg Quetiapine Fumarate (Seroquel) 100 mg PO HS [facility] Last Admin: 09/29/17 22:05 Dose: 100 mg Zolpidem Tartrate (Ambien) 5 mg PO HS PRN PRN Reason: Insomnia Last Admin: 09/29/17 22:07 Dose: 5 mg - Labs Labs: 09/27/17 05:18 09/27/17 14:49 PT 11.5 SECONDS (9.7-12.2) 09/26/17 19:30 INR 1.1 09/26/17 19:30 APTT 30 SECONDS (21-34) 09/26/17 19:30 - Constitutional Appears: Well, Non-toxic, No Acute Distress - Head Exam Head Exam: ATRAUMATIC, NORMAL INSPECTION - Eye Exam Eye Exam: EOMI. absent: Conjunctival injection, Scleral icterus - Respiratory Exam Respiratory Exam: NORMAL BREATHING PATTERN. absent: Wheezes, Respiratory Distress - GI/Abdominal Exam GI & Abdominal Exam: Soft, Tenderness (mildly in epigastrum w/o guarding), Normal Bowel Sounds. absent: Bruit, Distended, Firm, Guarding, Rigid, Diminished Bowel Sounds Assessment and Plan - Assessment and Plan (Free Text) Assessment: 62 yo WF with Anx/Depression, Tob and EtOH Abuse presenting with nausea and vomiting. # Acute on Chronic Nausea/Vomiting: Chronic issue for patient with unclear reason why acutely worse. Pt with concerning reports of dysphagia with ongoing risk factors of tobacco and EtOH abuse. However, reassuringly, EGD from with out mass or severe disease to explain symptoms. Biopsies with non- specific inflammation, Hp - biopsies from stomach. Per review of OP records, previously had liver test abnormalities with plans for MRI. HCT to eval for intracranial cause ->unremarkable. MRI Abd with signs of focal fatty liver and cholelithiasis. Plan: - GI Series Radiographs w/contrast pending - Full Liq Diet advancing to Puree post-GI series, if tolerates then can advance more - Supportive Care - Switch H2RA to PPI to attempt better symptom control - Consider Manometry as OP should symptoms persist without clear etiology Pt seen and examined with Dr. Otero <Elmer Otero - Last Filed: 09/30/17 15:50> Objective - Vital Signs/Intake and Output Vital Signs (last 24 hours): Temp Pulse Resp BP Pulse Ox 97.9 F 99 H 20 108/72 96 09/30/17 08:15 09/30/17 08:15 09/30/17 08:15 09/30/17 08:15 09/30/17 08:15 - Medications Medications: Current Medications Enoxaparin Sodium (Lovenox) 40 mg SC DAILY [facility] Last Admin: 09/30/17 10:20 Dose: Not Given Ondansetron HCl (Zofran Inj) 4 mg IVP Q6 PRN PRN Reason: Nausea/Vomiting Last Admin: 09/27/17 20:34 Dose: 4 mg Pantoprazole Sodium (Protonix Ec Tab) 20 mg PO DAILY [facility] Quetiapine Fumarate (Seroquel) 100 mg PO HS [facility] Last Admin: 09/29/17 22:05 Dose: 100 mg Zolpidem Tartrate (Ambien) 5 mg PO HS PRN PRN Reason: Insomnia Last Admin: 09/29/17 22:07 Dose: 5 mg - Labs Labs: 09/27/17 05:18 09/27/17 14:49 PT 11.5 SECONDS (9.7-12.2) 09/26/17 19:30 INR 1.1 09/26/17 19:30 APTT 30 SECONDS (21-34) 09/26/17 19:30 Attending/Attestation - Attestation I have personally seen and examined this patient.: Yes I have fully participated in the care of the patient.: Yes I have reviewed all pertinent clinical information, including history, physical exam and plan: Yes Notes (Text): 09/30/17 15:48 I have seen and examined patient with GI fellow. No acute events overnight, she continues to endorse post prandial nausea but was able to tolerate PO diet yesterday without any vomiting. She denies fever/chills. Anxiety/Depression Nausea, vomiting - resolved Upper GI series reviewed by me showing passage of contrast through small bowel without obstructive features, though slow transit noted through esophagus - Advance diet as tolerated - Continue with PPI therapy - Anti-emetic therapy PRN - From GI standpoint ok to discharge patient home with further outpatient follow up, she would benefit from esophageal manometry study to rule out dysmotility. Will sign off case, please reconsult as necessary, thank you.
--- NOTE | 2017-09-30 09:18 | PN ---
Copied To: Rashad Carmona MD Attending MD: Rashad Carmona MD DATE: 09/29/2017 SUBJECTIVE: The patient has decreased nausea, decreased abdominal pain. She was seen by Dr. Otero. Her potassium is up to 3.7. PHYSICAL EXAMINATION: GENERAL: She is afebrile. No shortness of breath. LUNGS: Clear. CVS: S1, S2, regular. ABDOMEN: Soft. ASSESSMENT: 1. Cyclical vomiting, status post CT abdomen, MRI of abdomen. 2. Depression. 3. . PLAN: Monitor the patient. Rashad Carmona MD
[2017-09-30] MEDS: Enoxaparin 30 mg Syringe SC SCH (10:20)
[2017-09-30] MEDS ORDERED: Barium Sulfate for Susp 98% w/w 340g Bottle ONE ×2 (11:13)
[2017-09-30] MEDS ORDERED: Barium Sulfate for Susp 96% w/w 176g Bottle PR ONE ×2 (11:14→11:47)
[2017-09-30 15:55] VITALS: PULSE 79; TEMP 98.1; O2SAT 98
[2017-09-30 16:07] VITALS: BP 119/89
--- NOTE | 2017-09-30 16:38 | CP.PCM.PN ---
Subjective - Date & Time of Evaluation Date of Evaluation: 10/01/17 Time of Evaluation: 15:00 - Subjective Subjective: Patient seen today, denies any chest pain, sob, abdominal pain, N/V/D for Obstructive serious today Objective - Vital Signs/Intake and Output Vital Signs (last 24 hours): Temp Pulse Resp BP Pulse Ox 98.1 F 79 20 119/89 98 09/30/17 15:00 09/30/17 15:00 09/30/17 15:00 09/30/17 15:00 09/30/17 15:00 - Medications Medications: Current Medications Enoxaparin Sodium (Lovenox) 40 mg SC DAILY [facility] Last Admin: 09/30/17 10:20 Dose: Not Given Ondansetron HCl (Zofran Inj) 4 mg IVP Q6 PRN PRN Reason: Nausea/Vomiting Last Admin: 09/27/17 20:34 Dose: 4 mg Pantoprazole Sodium (Protonix Ec Tab) 20 mg PO DAILY [facility] Quetiapine Fumarate (Seroquel) 100 mg PO HS [facility] Last Admin: 09/29/17 22:05 Dose: 100 mg Zolpidem Tartrate (Ambien) 5 mg PO HS PRN PRN Reason: Insomnia Last Admin: 09/29/17 22:07 Dose: 5 mg - Labs Labs: 09/27/17 05:18 09/27/17 14:49 PT 11.5 SECONDS (9.7-12.2) 09/26/17 19:30 INR 1.1 09/26/17 19:30 APTT 30 SECONDS (21-34) 09/26/17 19:30 Assessment and Plan - Assessment and Plan (Free Text) Assessment: A/P 62 year old female presents to the ED c/o nausea, vomit, not tolerating PO intake for the past 4-5 days and admitted with Dizziness, Intractable vomiting with nausea, Hypokalemia labs- reviewed - WNL Patient tolerated liquid diet without N/V Dr. Otero consulted for N/V Upper GI series reviewed by Dr. Otero showing passage of contrast through small bowel without obstructive features, though slow transit noted through esophagus and recommends to Advance diet as tolerated Continue with PPI therapy and cleared for discharge from GI standpoint to discharge patient home with further outpatient follow up D/w Dr. Carmona, Stable for discharge home today and f/u with PMD in 1 week Discharge plan discussed with patient who understands and agrees with plan, Patient instructed to returns to ED if symptoms returns
--- NOTE | 2017-09-30 17:44 | RAD ---
Date of service: 09/30/2017 PROCEDURE: Upper GI and small bowel follow up dated 09/30/2017. HISTORY: Nausea, vomiting COMPARISON: Correlation made with prior CT scan of the abdomen and pelvis 07/10/2017. TECHNIQUE: Single contrast upper GI series with small-bowel follow-through performed in standard fashion. Multiple digital fluoroscopic and overhead radiographic images obtained. Spot film compression images also obtained. FINDINGS: The esophagus exhibited normal course contour and distensibility. No evidence of persistent intraluminal or extrinsic esophageal filling defects. Small hiatal hernia with evidence of dysmotility manifest by delayed clearing of barium from the esophagus. . Significant gastroesophageal reflux demonstrated of during this procedure the supine patient positioning. Esophageal mucosal pattern appear grossly unremarkable. The stomach exhibited normal configuration, contour and distensibility. No persistent intraluminal or extrinsic filling defects. No evidence of gastric ulceration. Rugal fold pattern grossly unremarkable. The duodenal bulb also exhibited normal contour and distensibility without evidence of ulceration. Small bowel exhibited normal rotation of contour and caliber. No evidence acute mechanical small bowel obstruction. Mucosal fold pattern unremarkable. Appendix not visualized during this examination IMPRESSION: Small hiatal hernia. Significant gastroesophageal reflux demonstrated during this procedure. Evidence of dysmotility with delayed clearing of barium from the esophagus
--- NOTE | 2017-09-30 23:09 | CP.PCM.DIS ---
Provider - Provider Date of Admission: 09/26/17 22:29 Attending physician: Rashad Carmona MD Hospital Course - Lab Results Lab Results: Most Recent Lab Values WBC 9.3 K/uL (4.8-10.8) 09/27/17 05:18 RBC 3.80 Mil/uL (3.80-5.20) 09/27/17 05:18 Hgb 13.2 g/dL (11.0-16.0) D 09/27/17 05:18 Hct 38.5 % (34.0-47.0) 09/27/17 05:18 MCV 101.2 fL (81.0-99.0) H 09/27/17 05:18 MCH 34.6 pg (27.0-31.0) H 09/27/17 05:18 MCHC 34.2 g/dL (33.0-37.0) 09/27/17 05:18 RDW 14.9 % (11.5-14.5) H 09/27/17 05:18 Plt Count 218 K/uL (130-400) 09/27/17 05:18 MPV 8.4 fL (7.2-11.7) 09/27/17 05:18 Neut % (Auto) 70.8 % (50.0-75.0) 09/26/17 19:30 Lymph % (Auto) 16.4 % (20.0-40.0) L 09/26/17 19:30 [place] % (Auto) 11.9 % (0.0-10.0) H 09/26/17 19:30 Eos % (Auto) 0.3 % (0.0-4.0) 09/26/17 19:30 Baso % (Auto) 0.6 % (0.0-2.0) 09/26/17 19:30 Neut # (Auto) 8.5 K/uL (1.8-7.0) H 09/26/17 19:30 Lymph # (Auto) 2.0 K/uL (1.0-4.3) 09/26/17 19:30 [place] # (Auto) 1.4 K/uL (0.0-0.8) H 09/26/17 19:30 Eos # (Auto) 0.0 K/uL (0.0-0.7) 09/26/17 19:30 Baso # (Auto) 0.1 K/uL (0.0-0.2) 09/26/17 19:30 PT 11.5 SECONDS (9.7-12.2) 09/26/17 19:30 INR 1.1 09/26/17 19:30 APTT 30 SECONDS (21-34) 09/26/17 19:30 Sodium 143 mmol/L (132-148) 09/27/17 14:49 Potassium 3.7 mmol/L (3.6-5.2) 09/27/17 14:49 Chloride 105 mmol/L (98-107) 09/27/17 14:49 Carbon Dioxide 26 mmol/L (22-30) 09/27/17 14:49 Anion Gap 16 (10-20) 09/27/17 14:49 BUN 2 mg/dL (7-17) L 09/27/17 14:49 Creatinine 0.5 mg/dL (0.7-1.2) L 09/27/17 14:49 Est GFR ( Amer) > 60 09/27/17 14:49 Est GFR (Non-Af Amer) > 60 09/27/17 14:49 POC Glucose (mg/dL) 98 mg/dL (65-110) 09/26/17 18:42 Random Glucose 98 mg/dL (65-105) 09/27/17 14:49 Calcium 8.1 mg/dl (8.6-10.4) L 09/27/17 14:49 Magnesium 1.3 mg/dL (1.6-2.3) L 09/27/17 05:18 Total Bilirubin 1.3 mg/dL (0.2-1.3) 09/26/17 19:30 AST 27 U/L (14-36) 09/26/17 19:30 ALT 26 U/L (9-52) 09/26/17 19:30 Alkaline Phosphatase 134 U/L (38-126) H D 09/26/17 19:30 Total Protein 6.7 g/dL (6.3-8.3) 09/26/17 19:30 Albumin 3.7 g/dL (3.5-5.0) 09/26/17 19:30 Globulin 3.0 gm/dL (2.2-3.9) 09/26/17 19:30 Albumin/Globulin Ratio 1.2 (1.0-2.1) 09/26/17 19:30 Lipase 39 U/L (23-300) 09/26/17 19:30 Urine Color Yellow (YELLOW) 09/26/17 20:23 Urine Clarity Clear (Clear) 09/26/17 20: Urine pH 7.0 (5.0-8.0) 09/26/17 20:23 Ur Specific [place] 1.002 (1.003-1.030) L 09/26/17 20:23 Urine Protein Negative mg/dL (NEGATIVE) 09/26/17 20:23 Urine Glucose (UA) Normal mg/dL (Normal) 09/26/17 20: Urine Ketones Negative mg/dL (NEGATIVE) 09/26/17 20:23 Urine Blood Negative (NEGATIVE) 09/26/17 20:23 Urine Nitrate Negative (NEGATIVE) 09/26/17 20:23 Urine Bilirubin Negative (NEGATIVE) 09/26/17 20:23 Urine Urobilinogen Normal mg/dL (0.2-1.0) 09/26/17 20:23 Ur Leukocyte Esterase Neg [place]/uL (Negative) 09/26/17 20:23 Urine WBC (Auto) 4 /hpf (0-5) 09/26/17 20:23 Urine RBC (Auto) < 1 /hpf (0-3) 09/26/17 20:23 Ur Squamous Epith Cells < 1 /hpf (0-5) 09/26/17 20:23 Urine Bacteria Occ (<OCC) H 09/26/17 20:23 Discharge Exam - Head Exam Head Exam: ATRAUMATIC, NORMAL INSPECTION Discharge Plan - Discharge Medications Prescriptions: Pantoprazole [Protonix EC Tab] 20 mg PO DAILY #20 ect - Follow Up Plan Condition: FAIR Disposition: HOME/ ROUTINE Instructions: Hypokalemia (DC), Nausea and Vomiting, Adult (DC), Hiatal Hernia (DC), Dizziness, Nonvertigo, (DC), Pantoprazole Additional Instructions: Please f/u with Dr. Peguero PMD in 1 week Please f/u with office in 2 weeks- call and make appointments Resume all home medications Referrals: Elmer Otero MD [Staff Provider] - Rashad Carmona MD [Staff Provider] -
[2017-10-01] MEDS ORDERED: Pantoprazole 20 mg EC Tab PO SCH (06:00)
== END 2017-09-30 17:03 | disposition home or self-care (01) | DRG 392 ==
LOC: C.ER 18:20 → C.9E 22:29 → C.5S 09-27 14:26
PROVIDERS: ADMIT Internal Medicine; ATTEND Internal Medicine
PROC: BD16YZZ Fluoroscopy of Upper GI and Small Bowel using Other Contrast (ICD-10-PCS; principal; 2017-09-30)
DX: K21.9 Gastro-esophageal reflux disease without esophagitis (principal); K22.4 Dyskinesia of esophagus; K44.9 Diaphragmatic hernia without obstruction or gangrene; R13.10 Dysphagia, unspecified; E86.0 Dehydration; E87.6 Hypokalemia; F10.10 Alcohol abuse, uncomplicated; F17.210 Nicotine dependence, cigarettes, uncomplicated; F41.8 Other specified anxiety disorders; M51.24 Other intervertebral disc displacement, thoracic region; Z87.442 Personal history of urinary calculi

== ENCOUNTER 2017-10-04 15:39 | Inpatient (IN) | payer MEDICARE ==
[2017-10-04] MEDS ORDERED: Sodium Chloride 0.9% 1,000 ML IV STA (16:51)
--- NOTE | 2017-10-04 16:56 | C.PDOC ---
History Of Present Illness 62 y/o F p/w dizziness, abdominal pain, nausea/vomiting, numbness x 2 days. Patient states she was admitted to this hospital and discharged 2 days ago with diagnoses of hiatal hernia and gallstones. She states she was discharged feeling well but the next day, which was yesterday, she began having a constant , severe abdominal pain like a band across her upper abdomen which has since began radiating in a band around her back. She also reports dizziness since yesterday, which is new. She states it feels like her head is spinning, is worse when she moves, associated with nonbloody vomiting. She also states she has been feeling numbness in her bilateral hands and periorally. She denies fever, chills, chest pain, dyspnea, diarrhea, dysuria, rash, motor weakness. Time Seen by Provider: 10/04/17 16:18 Chief Complaint (Nursing): Chest Pain Past Medical History Vital Signs: Last Vital Signs Temp 98.4 F 10/04/17 16:22 Pulse 95 H 10/04/17 19:07 Resp 17 10/04/17 19:07 BP 138/81 10/04/17 19:07 Pulse Ox 95 10/04/17 19:07 - Medical History PMH: Anemia, Depression Denies: Atrial Fibrillation, Cardia Arrhythmia, CHF, HTN, Hypercholesterolemia, Mitral Valve Prolapse, Peripheral Edema, Chronic Kidney Disease Surgical History: Appendectomy (1982) Denies: Pacemaker - [facility] Procedures EXCISION OF ASCENDING COLON, ENDO, DIAGN (07/09/17) EXCISION OF DESCENDING COLON, ENDO, DIAGN (07/09/17) EXCISION OF DUODENUM, ENDO, DIAGN (07/09/17) EXCISION OF ESOPHAGUS, ENDO, DIAGN (07/09/17) EXCISION OF STOMACH, ENDO, DIAGN (07/09/17) EXCISION OF TRANSVERSE COLON, ENDO, DIAGN (07/09/17) FLUOROSCOPY OF UPPER GI AND SMALL BOWEL USING OTHER CONTRAST (09/26/17) Family History: States: Unknown Family Hx - Social History Hx Tobacco Use: Yes Hx Alcohol Use: Yes ("social") Hx Substance Use: No - Immunization History Hx Tetanus Toxoid Vaccination: No Hx Influenza Vaccination: No Hx Pneumococcal Vaccination: No Review Of Systems Except As Marked, All Systems Reviewed And Found Negative. Constitutional: Negative for: Fever Cardiovascular: Negative for: Chest Pain Physical Exam - Physical Exam Additional Physical Exam Comments: Constitutional: No acute distress. Anxious appearing. Head: Normocephalic. Atraumatic. Eyes: PERRL. ENT: Moist mucous membranes. Neck: Supple. Cardiovascular: Regular rate. Radial pulse 2+ bilaterally. Chest: No tenderness. Respiratory: Clear to auscultation bilaterally. GI: Soft. Diffuse tenderness, worse in RUQ. Nondistended. Back: No CVA tenderness. Musculoskeletal: No tenderness or swelling of extremities. Skin: No rash. Neurologic: Alert, no focal deficit. Positive Melany Hallpike. ED Course And Treatment - Laboratory Results Result Diagrams: 10/04/17 17:15 10/04/17 17:15 O2 Sat by Pulse Oximetry: 97 Medical Decision Making Medical Decision Making: Impression: 62 y/o F c bandlike abdominal pain with diagnosis of gallstones with symptoms consistent with BPPV and hyperventilation. US, labs, meclizine, Zofran, reassess. CXR Impression: Biapical pleural thickening with upper lobe granulomatous changes. Bibasilar breast and nipple shadows. Mild venous congestion. Tortuous ectatic aorta. Degenerative changes in the spine. Retained contrast in the left liz abdomen. FINDINGS: Liver: Enlarged, 19.7 cm. Fatty infiltration with probable focal sparing. No definite mass. No intrahepatic ductal dilatation. Gallbladder: Gallstones. Sludge. No wall thickening. No pericholecystic fluid. No sonographic Cottrell's sign. Common bile duct: No dilatation. No stones. Pancreas: Unremarkable as visualized. Kidneys: Normal echogenicity. Small right renal cyst. No significant hydronephrosis. Spleen: No splenomegaly. Aorta: Unremarkable. No aneurysm. Inferior vena cava: Unremarkable. Free fluid: No significant free fluid. Patient with recurrent hypokalemia, states she can not tolerate any PO and feels lightheaded and fell at home twice. Unsafe discharge, will require hypokalemia repletion and further evaluation of with is likely biliary colic. Dr. Carmona accepts patient back to his service. Disposition Discussed With : Rashad Carmona Doctor Will See Patient In The: Hospital - Disposition Disposition: HOSPITALIZED Disposition Time: 21:10 Condition: FAIR Forms: [employer] [employer] (Belarusian) - Clinical Impression Clinical Impression: Biliary colic, Hypokalemia, Intractable vomiting - Scribe Statement The provider has reviewed the documentation as recorded by the Miranda Andre All medical record entries made by the Miranda were at my direction and personally dictated by me. I have reviewed the chart and agree that the record accurately reflects my personal performance of the history, physical exam, medical decision making, and the department course for this patient. I have also personally directed, reviewed, and agree with the discharge instructions and disposition.
[2017-10-04] MEDS ORDERED: Sodium Chloride 0.9% 1,000 ML ONE (17:03)
[2017-10-04 17:19] LABS: BASO # 0.1 K/uL (0.0-0.2); BASO % 0.6 % (0.0-2.0); EOS % 0.3 % (0.0-4.0); HEMOGLOBIN 14.4 g/dL (11.0-16.0); MEAN CELL VOLUME 101.3 fL (81.0-99.0); MEAN CORPUSCULAR HEMOGLOBIN 35.2 pg (27.0-31.0); MEAN CORPUSCULAR HGB CONC 34.8 g/dL (33.0-37.0); MEAN PLATELET VOLUME 7.9 fL (7.2-11.7); MONO # 1.1 K/uL (0.0-0.8); MONO % 10.7 % (0.0-10.0); NEUT # 6.8 K/uL (1.8-7.0); NEUT % 68.4 % (50.0-75.0); NRBC % 0.1 % (0.0-2.0); RBC 4.08 Mil/uL (3.80-5.20); RED CELL DISTRIBUTION WIDTH 15.2 % (11.5-14.5)
--- NOTE | 2017-10-04 17:24 | RAD ---
Chest x-ray single frontal view History: Pneumonia. Comparison: None available. Findings: Biapical pleural thickening with upper lobe granulomatous changes. Bibasilar breast and nipple shadows. Mild venous congestion. Tortuous ectatic aorta. Degenerative changes in the spine. Retained contrast in the left liz abdomen. Impression: Biapical pleural thickening with upper lobe granulomatous changes. Bibasilar breast and nipple shadows. Mild venous congestion. Tortuous ectatic aorta. Degenerative changes in the spine. Retained contrast in the left liz abdomen.
[2017-10-04 17:29] LABS: PROTHROMBIN TIME 11.3 SECONDS (9.7-12.2)
[2017-10-04 17:42] LABS: ALB/GLOB RATIO 1.1 (1.0-2.1); ALBUMIN 3.1 g/dL (3.5-5.0); ALT/SGPT 31 U/L (9-52); AST/SGOT 30 U/L (14-36); BLOOD UREA NITROGEN 6 mg/dL (7-17); GFR NON-AFRICAN AMERICAN > 60; LIPASE 35 U/L (23-300)
[2017-10-04 18:17] LABS: SQUAMOUS EPITHIAL 4 /hpf (0-5); URINE BACTERIA OCC (<OCC); URINE BILIRUBIN NEGATIVE (NEGATIVE); URINE BLOOD NEGATIVE (NEGATIVE); URINE CLARITY Clear (Clear); URINE COLOR Yellow (YELLOW); URINE GLUCOSE (UA) NORMAL (Normal); URINE LEUKOCYTE ESTERASE NEG Leu/uL (Negative); URINE PROTEIN NEGATIVE (NEGATIVE); URINE UROBILINOGEN NORMAL mg/dL (0.2-1.0)
[2017-10-04] MEDS ORDERED: Potassium Chloride 20 mEq 100 ML ONE (22:11)
[2017-10-05] MEDS: Potassium Ch 20mEq in D5-1/2NS 1,000 ML IV SCH ×5 (01:08→23:58)
--- NOTE | 2017-10-05 08:52 | CARD ---
APPROVED REPORT Date of service: 10/04/2017 EKG Measurement Heart [id number] <Conclusion> Sinus tachycardia Possible Left atrial enlargement Nonspecific ST and T wave abnormality Abnormal ECG
[2017-10-05] MEDS: Enoxaparin 40 mg Syringe SC SCH (11:55)
[2017-10-05 12:25] LABS: BASO % 0.6 % (0.0-2.0); EOS # 0.1 K/uL (0.0-0.7); EOS % 0.9 % (0.0-4.0); HEMOGLOBIN 12.9 g/dL (11.0-16.0); LYMPH # 1.7 K/uL (1.0-4.3); LYMPH % 29.3 % (20.0-40.0); MEAN CORPUSCULAR HEMOGLOBIN 35.2 pg (27.0-31.0); MEAN CORPUSCULAR HGB CONC 34.1 g/dL (33.0-37.0); MEAN PLATELET VOLUME 8.1 fL (7.2-11.7); MONO # 0.9 K/uL (0.0-0.8); MONO % 14.7 % (0.0-10.0); NEUT # 3.2 K/uL (1.8-7.0); NEUT % 54.5 % (50.0-75.0); NRBC % 0.1 % (0.0-2.0); RBC 3.67 Mil/uL (3.80-5.20); RED CELL DISTRIBUTION WIDTH 15.3 % (11.5-14.5); WHITE BLOOD COUNT 5.9 K/uL (4.8-10.8)
[2017-10-05 12:29] LABS: MEAN CELL VOLUME 103.3 fL (81.0-99.0)
--- NOTE | 2017-10-05 12:46 | CP.PCM.CON ---
<Tres Thorpe - Last Filed: 10/05/17 15:03> History of Present Illness - History of Present Illness History of Present Illness: Pt is a 62 yo WF with h/o Depression/Anxiety, Tob Abuse, EtOH Abuse, Cholelithiasis, Hiatal hernia, GERD, possible underlying motility disorder presenting with abd pain, nausea/vomiting and dizziness/tingling. She is well known given her recent stay for similar complaints. She states that shortly after her DC on 09/30/17, she began to notice worsening abdominal discomfort, described as "seat belt across abdomen" with some radiation into her back. She reports associated N/V consisting of PO emesis, denying bloody or bilious emesis. She states that she also felt generalized weakness with tingling in her feet and lips prompting her to preset for evaluation. She denied any fevers , chills, CP (other than some heartburn), hematemesis, melena. Though on ROS, she states that she has not had a BM in at least 1 week which she attributed to not eating "anything." ROS: 12 point ROS negative other than stated above PMH: Anxiety, Depression, PSH: Repair of minscal tear 2015, Appendectomy (Exlap) --- EGD: 07/14/17 with Reflux Esophagitis, 1 cm HH, Gastritis (Hp -), Bx of esophagus with --- CSPY: 08/12/17 with multiple polyps (>5) with 1 18 mm polyp in cecum, all polyps tubular adenomas with 1 hyperplastic polyp Meds: Reviewed in chart Family Hx: reviewed; denies any GI related malignancies Social: 1 shot rebecca per night with 4-5 drinks/night on weekends, 0.5 pack/day with ~7 pack years, no drugs All: Shrimp Past Patient History - Past Medical History & Family History Past Medical History?: Yes - Past Social History Smoking Status: Heavy Smoker > 10 Cigarettes Daily - CARDIAC Hx Atrial Fibrillation: No Hx Cardia Arrhythmia: No Hx Congestive Heart Failure: No Hx Hypercholesterolemia: No Hx Hypertension: No Hx Mitral Valve Prolapse: No Hx Pacemaker: No Hx Peripheral Edema: No - PULMONARY Hx Respiratory Disorders: No - NEUROLOGICAL Hx Neurological Disorder: No - HEENT Hx HEENT Problems: No Other/Comment: Wears Eyeglasses for reading - RENAL Hx Chronic Kidney Disease: No - ENDOCRINE/METABOLIC Hx Endocrine Disorders: No - HEMATOLOGICAL/ONCOLOGICAL Hx Anemia: Yes - INTEGUMENTARY Hx Dermatological Problems: No - MUSCULOSKELETAL/RHEUMATOLOGICAL Hx Musculoskeletal Disorders: Yes Hx Falls: No Hx Herniated Disk: Yes (PATIENT STATES SHE HAS 3 BULGING DISCS LEFT THORACIC AREA) - GASTROINTESTINAL Hx Gastrointestinal Disorders: Yes Other/Comment: H/O RUPTURED AP, EXPLOR LAP DONE - GENITOURINARY/GYNECOLOGICAL Hx Genitourinary Disorders: No Other/Comment: kidney stones - PSYCHIATRIC Hx Depression: Yes Hx Substance Use: No - SURGICAL HISTORY Hx Appendectomy: Yes (1982) - ANESTHESIA Hx Anesthesia: Yes Hx Anesthesia Reactions: No Hx Malignant Hyperthermia: No Meds Allergies/Adverse Reactions: Allergies Allergy/AdvReac Type Severity Reaction Status Date / Time shrimp Allergy SWELLING Verified 10/04/17 16:25 - Medications Medications: Current Medications Enoxaparin Sodium (Lovenox) 40 mg SC DAILY [facility] Last Admin: 10/05/17 11:55 Dose: Not Given Potassium Chloride/Dextrose/Sod Cl (Potassium Chl 20 Meq In D5-1/2ns) 1,000 mls @ 150 mls/hr IV .Q6H40M [facility] Last Admin: 10/05/17 07:52 Dose: 150 mls/hr Ondansetron HCl (Zofran Inj) 4 mg IVP Q4 PRN PRN Reason: Nausea/Vomiting Pantoprazole Sodium (Protonix Inj) 40 mg IVP DAILY [facility] Last Admin: 10/05/17 11:22 Dose: Not Given Quetiapine Fumarate (Seroquel) 100 mg PO HS [facility] Last Admin: 10/05/17 01:32 Dose: 100 mg Physical Exam - Constitutional Appears: Well, Non-toxic, No Acute Distress - Head Exam Head Exam: ATRAUMATIC, NORMAL INSPECTION - Eye Exam Eye Exam: EOMI. absent: Conjunctival injection, Scleral icterus - ENT Exam ENT Exam: Mucous Membranes Dry, Normal External Ear Exam. absent: Mucous Membranes Moist - Respiratory Exam Respiratory Exam: Clear to Auscultation Bilateral, NORMAL BREATHING PATTERN. absent: Wheezes, Respiratory Distress - Cardiovascular Exam Cardiovascular Exam: REGULAR RHYTHM, RRR. absent: Bradycardia, Tachycardia - GI/Abdominal Exam GI & Abdominal Exam: Guarding (vol on palpation in epigastrum), Normal Bowel Sounds, Soft, Tenderness (in RUQ and epigastrum). absent: Bruit, Diminished Bowel Sounds, Distended, Firm, Organomegaly, Pulsatile Mass - Rectal Exam Rectal Exam: Deferred - Extremities Exam Extremities exam: Positive for: normal inspection. Negative for: pedal edema - Neurological Exam Neurological exam: Alert, CN II-XII Intact, Oriented x3 - Psychiatric Exam Psychiatric exam: Anxious, Normal Affect - Skin Skin Exam: Dry, Normal Color, Warm Results - Vital Signs Recent Vital Signs: Last Vital Signs Temp 97.8 F 10/05/17 01:12 Pulse 82 10/05/17 06:00 Resp 16 10/05/17 06:00 BP 96/61 L 10/05/17 06:00 Pulse Ox 93 L 10/05/17 06:00 - Labs Result Diagrams: 10/05/17 12:18 10/05/17 12:18 Labs: Laboratory Results - last 24 hr 10/04/17 10/04/17 10/04/17 17:15 17:15 17:15 WBC 10.0 RBC 4.08 Hgb 14.4 Hct 41.3 MCV 101.3 H MCH 35.2 H MCHC 34.8 RDW 15.2 H Plt Count 286 MPV 7.9 Neut % (Auto) 68.4 Lymph % (Auto) 20.0 Metcalfe % (Auto) 10.7 H Eos % (Auto) 0.3 Baso % (Auto) 0.6 Neut # (Auto) 6.8 Lymph # (Auto) 2.0 Metcalfe # (Auto) 1.1 H Eos # (Auto) 0.0 Baso # (Auto) 0.1 PT 11.3 INR 1.0 APTT 31 Sodium 140 Potassium 2.8 L Chloride 100 Carbon Dioxide 34 H Anion Gap 9 L BUN 6 L Creatinine 0.5 L Est GFR ( Amer) > 60 Est GFR (Non-Af Amer) > 60 Random Glucose 105 Calcium 9.0 Phosphorus 3.8 Magnesium 1.3 L Total Bilirubin 0.6 AST 30 ALT 31 Alkaline Phosphatase 109 Total Protein 5.9 L Albumin 3.1 L Globulin 2.7 Albumin/Globulin Ratio 1.1 Lipase 35 Urine Color Urine Clarity Urine pH Ur Specific [place] Urine Protein Urine Glucose (UA) Urine Ketones Urine Blood Urine Nitrate Urine Bilirubin Urine Urobilinogen Ur Leukocyte Esterase Urine WBC (Auto) Urine RBC (Auto) Ur Squamous Epith Cells Urine Bacteria Blood Type Antibody Screen 10/04/17 10/04/1710/05/18 17:15 17:58 12:18 WBC 5.9 RBC 3.67 L Hgb 12.9 Hct 37.9 MCV 103.3 H D MCH 35.2 H MCHC 34.1 RDW 15.3 H Plt Count 261 MPV 8.1 Neut % (Auto) 54.5 Lymph % (Auto) 29.3 Metcalfe % (Auto) 14.7 H Eos % (Auto) 0.9 Baso % (Auto) 0.6 Neut # (Auto) 3.2 Lymph # (Auto) 1.7 Metcalfe # (Auto) 0.9 H Eos # (Auto) 0.1 Baso # (Auto) 0.0 PT INR APTT Sodium Potassium Chloride Carbon Dioxide Anion Gap BUN Creatinine Est GFR ( Amer) Est GFR (Non-Af Amer) Random Glucose Calcium Phosphorus Magnesium Total Bilirubin AST ALT Alkaline Phosphatase Total Protein Albumin Globulin Albumin/Globulin Ratio Lipase Urine Color Yellow Urine Clarity Clear Urine pH 7.0 Ur Specific [place] 1.002 L Urine Protein Negative Urine Glucose (UA) Normal Urine Ketones Negative Urine Blood Negative Urine Nitrate Negative Urine Bilirubin Negative Urine Urobilinogen Normal Ur Leukocyte Esterase Neg Urine WBC (Auto) 1 Urine RBC (Auto) < 1 Ur Squamous Epith Cells 4 Urine Bacteria Occ H Blood Type O POSITIVE Antibody Screen Negative Assessment & Plan - Assessment and Plan (Free Text) Assessment: 62 yo WF with Anx/Depression, Tob and EtOH Abuse presenting with nausea and vomiting. # Acute on Chronic Abd Pain, Nausea/Vomiting: Chronic issue for patient with unclear reason why acutely worse; however during recent admission workup concerning for underlying motility disorder after poor/delayed clearance of contrast was noted in esophagus. Also with Cholelithiasis on imaging during last stay as well as US last night; however, labs not suggestive of obstruction. Pt with previously reported dysphagia with ongoing risk factors of tobacco and EtOH abuse. However, reassuringly, EGD from 07/14/17 with out mass or severe disease to explain symptoms. Biopsies with non-specific inflammation, Hp - biopsies from stomach. During last admission, HCT to eval for intracranial cause ->unremarkable. MRI Abd with signs of focal fatty liver and cholelithiasis. # GERD (severe symptoms), Hiatal Hernia: Cont daily PPI Plan: - Puree diet - Supportive Care - Cont PPI - Ondansetron for nausea - Outpatient Manometry - Miralax - Consider Gen Surg eval for cholelithiasis - Consider Neurology eval for possible vertigo - To repeat CSPY in 2019 due to multiple adenomatous polyps Pt seen and examined with Dr. Otero <Elmer Otero - Last Filed: 10/05/17 15:33> Meds - Medications Medications: Current Medications Enoxaparin Sodium (Lovenox) 40 mg SC DAILY [facility] Last Admin: 10/05/17 11:55 Dose: Not Given Potassium Chloride/Dextrose/Sod Cl (Potassium Chl 20 Meq In D5-1/2ns) 1,000 mls @ 150 mls/hr IV .Q6H40M [facility] Last Admin: 10/05/17 07:52 Dose: 150 mls/hr Ondansetron HCl (Zofran Inj) 4 mg IVP Q4 PRN PRN Reason: Nausea/Vomiting Pantoprazole Sodium (Protonix Inj) 40 mg IVP DAILY [facility] Last Admin: 10/05/17 11:22 Dose: Not Given Polyethylene Glycol (Miralax) 17 gm PO DAILY [facility] Quetiapine Fumarate (Seroquel) 100 mg PO HS [facility] Last Admin: 10/05/17 01:32 Dose: 100 mg Results - Vital Signs Recent Vital Signs: Last Vital Signs Temp 97.8 F 10/05/17 01:12 Pulse 82 10/05/17 06:00 Resp 16 10/05/17 06:00 BP 96/61 L 10/05/17 06:00 Pulse Ox 93 L 10/05/17 06:00 - Labs Result Diagrams: 10/05/17 12:18 10/05/17 12:18 Labs: Laboratory Results - last 24 hr 10/04/17 10/04/17 10/04/17 15:54 17:15 17:15 WBC 10.0 RBC 4.08 Hgb 14.4 Hct 41.3 MCV 101.3 H MCH 35.2 H MCHC 34.8 RDW 15.2 H Plt Count 286 MPV 7.9 Neut % (Auto) 68.4 Lymph % (Auto) 20.0 Metcalfe % (Auto) 10.7 H Eos % (Auto) 0.3 Baso % (Auto) 0.6 Neut # (Auto) 6.8 Lymph # (Auto) 2.0 [place] # (Auto) 1.1 H Eos # (Auto) 0.0 Baso # (Auto) 0.1 PT 11.3 INR 1.0 APTT 31 Sodium Potassium Chloride Carbon Dioxide Anion Gap BUN Creatinine Est GFR ( Amer) Est GFR (Non-Af Amer) POC Glucose (mg/dL) 109 Random Glucose Calcium Phosphorus Magnesium Total Bilirubin AST ALT Alkaline Phosphatase Total Protein Albumin Globulin Albumin/Globulin Ratio Lipase Urine Color Urine Clarity Urine pH Ur Specific [place] Urine Protein Urine Glucose (UA) Urine Ketones Urine Blood Urine Nitrate Urine Bilirubin Urine Urobilinogen Ur Leukocyte Esterase Urine WBC (Auto) Urine RBC (Auto) Ur Squamous Epith Cells Urine Bacteria Blood Type Antibody Screen 10/04/17 10/04/17 10/04/17 17:15 17:15 17:58 WBC RBC Hgb Hct MCV MCH MCHC RDW Plt Count MPV Neut % (Auto) Lymph % (Auto) [place] % (Auto) Eos % (Auto) Baso % (Auto) Neut # (Auto) Lymph # (Auto) [place] # (Auto) Eos # (Auto) Baso # (Auto) PT INR APTT Sodium 140 Potassium 2.8 L Chloride 100 Carbon Dioxide 34 H Anion Gap 9 L BUN 6 L Creatinine 0.5 L Est GFR ( Amer) > 60 Est GFR (Non-Af Amer) > 60 POC Glucose (mg/dL) Random Glucose 105 Calcium 9.0 Phosphorus 3.8 Magnesium 1.3 L Total Bilirubin 0.6 AST 30 ALT 31 Alkaline Phosphatase 109 Total Protein 5.9 L Albumin 3.1 L Globulin 2.7 Albumin/Globulin Ratio 1.1 Lipase 35 Urine Color Yellow Urine Clarity Clear Urine pH 7.0 Ur Specific [place] 1.002 L Urine Protein Negative Urine Glucose (UA) Normal Urine Ketones Negative Urine Blood Negative Urine Nitrate Negative Urine Bilirubin Negative Urine Urobilinogen Normal Ur Leukocyte Esterase Neg Urine WBC (Auto) 1 Urine RBC (Auto) < 1 Ur Squamous Epith Cells 4 Urine Bacteria Occ H Blood Type O POSITIVE Antibody Screen Negative 10/05/17 10/05/17 12:18 12:18 WBC 5.9 RBC 3.67 L Hgb 12.9 Hct 37.9 MCV 103.3 H D MCH 35.2 H MCHC 34.1 RDW 15.3 H Plt Count 261 MPV 8.1 Neut % (Auto) 54.5 Lymph % (Auto) 29.3 [place]calfe % (Auto) 14.7 H Eos % (Auto) 0.9 Baso % (Auto) 0.6 Neut # (Auto) 3.2 Lymph # (Auto) 1.7 [place] # (Auto) 0.9 H Eos # (Auto) 0.1 Baso # (Auto) 0.0 PT INR APTT Sodium 142 Potassium 3.4 L Chloride 107 Carbon Dioxide 26 Anion Gap 12 BUN 3 L Creatinine 0.5 L Est GFR ( Amer) > 60 Est GFR (Non-Af Amer) > 60 POC Glucose (mg/dL) Random Glucose 92 Calcium 7.5 L Phosphorus Magnesium Total Bilirubin 0.7 AST 25 ALT 27 Alkaline Phosphatase 90 Total Protein 5.2 L Albumin 2.6 L Globulin 2.6 Albumin/Globulin Ratio 1.0 Lipase Urine Color Urine Clarity Urine pH Ur Specific [place] Urine Protein Urine Glucose (UA) Urine Ketones Urine Blood Urine Nitrate Urine Bilirubin Urine Urobilinogen Ur Leukocyte Esterase Urine WBC (Auto) Urine RBC (Auto) Ur Squamous Epith Cells Urine Bacteria Blood Type Antibody Screen Attending/Attestation - Attestation I have personally seen and examined this patient.: Yes I have fully participated in the care of the patient.: Yes I have reviewed all pertinent clinical information: Yes Notes (Text): 10/05/17 15:27 I have seen and examined patient with GI fellow. Agree with above documentation with the following additions. In brief, this is a 62 year old female with history of anxiety, GERD, esophageal dysmotility who presents to hospital with complaint of progressive dizziness and abdominal pain. She was recently hospitalized for similar complaints one week ago and extensive workup revealed likely esophageal dysmotility and she was advised to have outpatient manometry testing performed at [facility]. Beginning two days ago she noted intermittent epigastric abdominal pain with one episode of non-bloody emesis and upper extremity numbness. She also admits to recent constipation, no bowel movements in past one week. Anxiety GERD Esophageal dysmotility Abdominal pain Abdominal US reviewed by me showing multiple gallstones, sludge - Advance diet as tolerated - Continue with PPI therapy - Consider neurology evaluation given ongoing dizziness and numbness of extremities - Consider surgical evaluation given abdominal pain with cholelithiasis - Begin bowel regimen to prevent recurrent constipation - Anti-emetic therapy PRN - No further planned GI interventions, will sign off case. Patient will be arranged for outpatient manometry testing at [facility]. Please reconsult as necessary, thank you.
[2017-10-05 12:48] LABS: ALBUMIN 2.6 g/dL (3.5-5.0); ALT/SGPT 27 U/L (9-52); AST/SGOT 25 U/L (14-36); BLOOD UREA NITROGEN 3 mg/dL (7-17); CALCIUM 7.5 mg/dl (8.6-10.4); GFR NON-AFRICAN AMERICAN > 60
--- NOTE | 2017-10-05 12:56 | US ---
Date of service: 10/04/2017 HISTORY: abdominal pain, band like upper abdomen, vomiting COMPARISON: MRI abdomen 09/28/[address] abdomen dated 07/10/2017. TECHNIQUE: Sonographic evaluation of the abdomen. FINDINGS: LIVER: Measures 19 point sig cm. Diffusely increased echogenicity of the liver parenchyma. Consistent with fatty infiltration. There is a circumscribed area of decreased echogenicity adjacent to the gallbladder fossa measuring 3.1 x 1.5 x 2.7 cm. This most likely represents focal fatty sparing although there is a larger surrounding region of more extensive fatty infiltration compared to the remainder of the liver. See MR examination of 09/[address] examination of 07/10/2017. GALLBLADDER: Tumefactive sludge versus neoplasm. Multiple gallstones. Correlation with MRI examination of 09/28/2017 shows irregular mural thickening and enhancement along the 15 second post gadolinium images suspicious for gallbladder neoplasm. Further evaluation is advised, possibly with followup gadolinium enhanced magnetic resonance imaging. COMMON BILE DUCT: Measures 4 mm. No stones. No dilatation. PANCREAS: Unremarkable as visualized. No mass. No ductal dilatation. RIGHT KIDNEY: Measures 11.0cm. Normal echogenicity. Upper pole cortical cyst, 1.9 cm. No calculus or hydronephrosis. LEFT KIDNEY: Measures 10.3cm. Normal echogenicity. No calculus, mass, or hydronephrosis. SPLEEN: Normal in size and contour. No mass. AORTA: No aneurysmal dilatation. IVC: Unremarkable. OTHER FINDINGS: None. IMPRESSION: Fatty infiltration of the liver. Questionable focal fatty sparing adjacent to the gallbladder fossa which may correspond to relative focal fatty sparing on MR and CT examination in the setting of a larger surrounding region of more extensive fatty infiltration. Not suspicious for neoplasm. . Hepatomegaly. Cholelithiasis and questionable tumefactive sludge versus gallbladder neoplasm. See above. Further evaluation advised. Right upper pole renal cortical cyst.
[2017-10-05] MEDS: POLYETHYLENE GLYCOL 3350 17 GM/Dose PACKET PO SCH (15:30)
[2017-10-05 17:20] VITALS: RESP 20
--- NOTE | 2017-10-05 23:52 | CP.PCM.HP ---
Present on Admission - Present on Admission Any Indicators Present on Admission: No Past Patient History - Past Medical History & Family History Past Medical History?: Yes - Past Social History Smoking Status: Current Some Days Smoker - CARDIAC Hx Atrial Fibrillation: No Hx Cardia Arrhythmia: No Hx Congestive Heart Failure: No Hx Hypercholesterolemia: No Hx Hypertension: No Hx Mitral Valve Prolapse: No Hx Pacemaker: No Hx Peripheral Edema: No - PULMONARY Hx Respiratory Disorders: No - NEUROLOGICAL Hx Neurological Disorder: No - HEENT Hx HEENT Problems: No Other/Comment: Wears Eyeglasses for reading - RENAL Hx Chronic Kidney Disease: No - ENDOCRINE/METABOLIC Hx Endocrine Disorders: No - HEMATOLOGICAL/ONCOLOGICAL Hx Anemia: Yes - INTEGUMENTARY Hx Dermatological Problems: No - MUSCULOSKELETAL/RHEUMATOLOGICAL Hx Falls: Yes - GASTROINTESTINAL Hx Gastrointestinal Disorders: Yes Other/Comment: H/O RUPTURED AP, EXPLOR LAP DONE - GENITOURINARY/GYNECOLOGICAL Hx Genitourinary Disorders: No Other/Comment: kidney stones - PSYCHIATRIC Hx Substance Use: No - SURGICAL HISTORY Hx Appendectomy: Yes (1982) - ANESTHESIA Hx Anesthesia: Yes Hx Anesthesia Reactions: No Hx Malignant Hyperthermia: No Meds Home Medications: Home Medication List Medication Instructions Recorded Confirmed Type Ursodiol [Actigall] 300 mg PO BID cap 10/06/17 Rx Allergies/Adverse Reactions: Allergies Allergy/AdvReac Type Severity Reaction Status Date / Time shrimp Allergy SWELLING Verified 10/04/17 16:25 Results - Vital Signs Recent Vital Signs: Last Vital Signs Temp 97.9 F 10/05/17 17:00 Pulse 90 10/05/17 17:00 Resp 20 10/05/17 17:00 BP 124/83 10/05/17 17:00 Pulse Ox 97 10/05/17 17:00 - Labs Result Diagrams: 10/06/17 06:56 10/06/17 06:56 Labs: Laboratory Results - last 24 hr 10/04/17 10/05/17 10/05/17 15:54 12:18 12:18 WBC 5.9 RBC 3.67 L Hgb 12.9 Hct 37.9 MCV 103.3 H D MCH 35.2 H MCHC 34.1 RDW 15.3 H Plt Count 261 MPV 8.1 Neut % (Auto) 54.5 Lymph % (Auto) 29.3 Delta % (Auto) 14.7 H Eos % (Auto) 0.9 Baso % (Auto) 0.6 Neut # (Auto) 3.2 Lymph # (Auto) 1.7 Delta # (Auto) 0.9 H Eos # (Auto) 0.1 Baso # (Auto) 0.0 Sodium 142 Potassium 3.4 L Chloride 107 Carbon Dioxide 26 Anion Gap 12 BUN 3 L Creatinine 0.5 L Est GFR ( Amer) > 60 Est GFR (Non-Af Amer) > 60 POC Glucose (mg/dL) 109 Random Glucose 92 Calcium 7.5 L Total Bilirubin 0.7 AST 25 ALT 27 Alkaline Phosphatase 90 Total Protein 5.2 L Albumin 2.6 L Globulin 2.6 Albumin/Globulin Ratio 1.0
[2017-10-06 07:19] LABS: ALB/GLOB RATIO 1.1 (1.0-2.1); ALBUMIN 2.9 g/dL (3.5-5.0); ALT/SGPT 27 U/L (9-52); AST/SGOT 28 U/L (14-36); BLOOD UREA NITROGEN < 2 mg/dL (7-17); CALCIUM 8.3 mg/dl (8.6-10.4); GFR NON-AFRICAN AMERICAN > 60
[2017-10-06 07:20] LABS: BASO % 0.3 % (0.0-2.0); EOS # 0.1 K/uL (0.0-0.7); EOS % 1.3 % (0.0-4.0); HEMOGLOBIN 13.4 g/dL (11.0-16.0); LYMPH % 31.9 % (20.0-40.0); MEAN CELL VOLUME 102.8 fL (81.0-99.0); MEAN CORPUSCULAR HEMOGLOBIN 35.3 pg (27.0-31.0); MEAN CORPUSCULAR HGB CONC 34.3 g/dL (33.0-37.0); MEAN PLATELET VOLUME 8.4 fL (7.2-11.7); MONO # 0.8 K/uL (0.0-0.8); MONO % 13.1 % (0.0-10.0); NEUT # 3.3 K/uL (1.8-7.0); NEUT % 53.4 % (50.0-75.0); NRBC % 0.1 % (0.0-2.0); RBC 3.79 Mil/uL (3.80-5.20); RED CELL DISTRIBUTION WIDTH 15.4 % (11.5-14.5); WHITE BLOOD COUNT 6.2 K/uL (4.8-10.8)
[2017-10-06] MEDS: Potassium Ch 20mEq in D5-1/2NS 1,000 ML IV SCH ×3 (07:24→14:36)
[2017-10-06] MEDS: Enoxaparin 40 mg Syringe SC SCH (09:21)
[2017-10-06] MEDS: POLYETHYLENE GLYCOL 3350 17 GM/Dose PACKET PO SCH (09:22)
--- NOTE | 2017-10-06 14:13 | HP ---
Copied To: Rashad Carmona MD Attending MD: Rashad Carmona MD CHIEF COMPLAINT: Abdominal pain, nausea and vomiting x1. HISTORY OF PRESENT ILLNESS: This is a 62-year-old female, known to me with history of anxiety, depression, smoker, and in the past history of alcohol. She also has cholelithiasis, hiatal hernia, gastroesophageal reflux disease with underlying motility disorder, who came in because of acute onset of recurrent diffuse abdominal pain, nausea, vomiting, dizziness, and tingling. She has history of multiple hospitalizations. She is well known in the emergency room and she has been seen by me in the past. According to her, shortly after her discharge on 10/03/2017, she started having abdominal pain and it looked like diffuse abdominal pain, it radiates into the back, and along with that she was having nausea, vomiting, mostly vomitus was yellow, no blood, no greenish liquid. According to the patient, she has been feeling worsening weakness, tiredness, anorexia, malaise, and . She has tingling in the body. She denies any fever, chills, rigors. She denies any chest pain, hematemesis, melena, or hematochezia. She denies any cough, sore throat, runny nose. She denies any history of polyuria, polydipsia, polyphagia. There is no history of . There is no history of trauma, fall, or loss of consciousness. She denies any history of seizure-like activity. PAST MEDICAL HISTORY: Anxiety, depression, cholelithiasis, she had meniscus tear repair in 2016, appendectomy 40 years ago, endoscopy on 07/14/2017 for reflux esophagitis with hiatal hernia, and negative H. pylori. CURRENT MEDICATION: At home she is on Seroquel. SOCIAL HISTORY: She is current smoker and ex-EtOH user. PHYSICAL EXAMINATION: GENERAL: She is an elderly female, in distress with abdominal pian, nausea, vomiting, generalized weakness. SKIN: Dry, poor turgor. HEENT: Atraumatic, normocephalic. Negative pallor. No acute jaundice. Extraocular movements are intact. NECK: Supple. No JVD. No lymph node. No thyromegaly. No carotid bruits. CHEST: Chest wall bilateral . BREASTS: No masses. LUNGS: Clear. No rales. No rhonchi. CVS: PMI not localized. S1 and S2 regular. No heave noted. ABDOMEN: Soft, nontender. Bowel sounds are positive. RECTAL: No masses. No bleeding. EXTREMITIES: No clubbing, cyanosis, or edema. PRIVATE WATCHMAN: Awake, alert, oriented x3. Cranial nerves II through XII normal. Power 5/5 x4. Plantars are downgoing. ASSESSMENT: 1. Acute nausea, vomiting, could be due to cholelithiasis versus gastritis versus gastroenteritis. 2. Dehydration. 3. Hypokalemia. 4. Hypertension. PLAN: Admit. Detailed orders written. Seen and examined. Rashad Carmona MD
[2017-10-06 15:40] VITALS: BP 149/99; PULSE 88; TEMP 98.4; O2SAT 98
--- NOTE | 2017-10-06 23:26 | CP.PCM.DIS ---
Provider - Provider Date of Admission: 10/05/17 12:32 Attending physician: Rashad Carmona MD Time Spent in preparation of Discharge (in minutes): 30 Hospital Course - Lab Results Lab Results: Micro Results 10/05/17 18:24 Naris MRSA Culture - Final MRSA NOT DETECTED 10/05/17 03:08 Naris MRSA Culture (Admit) - Final MRSA NOT DETECTED 10/04/17 17:58 Urine,Clean Catch Urine Culture - Final MULTIPLE SPECIES. SUGGEST REPEAT SPECIMEN. Most Recent Lab Values WBC 6.2 K/uL (4.8-10.8) 10/06/17 06:56 RBC 3.79 Mil/uL (3.80-5.20) L 10/06/17 06:56 Hgb 13.4 g/dL (11.0-16.0) 10/06/17 06:56 Hct 39.0 % (34.0-47.0) 10/06/17 06:56 MCV 102.8 fL (81.0-99.0) H 10/06/17 06:56 MCH 35.3 pg (27.0-31.0) H 10/06/17 06:56 MCHC 34.3 g/dL (33.0-37.0) 10/06/17 06:56 RDW 15.4 % (11.5-14.5) H 10/06/17 06:56 Plt Count 271 K/uL (130-400) 10/06/17 06:56 MPV 8.4 fL (7.2-11.7) 10/06/17 06:56 Neut % (Auto) 53.4 % (50.0-75.0) 10/06/17 06:56 Lymph % (Auto) 31.9 % (20.0-40.0) 10/06/17 06:56 [place] % (Auto) 13.1 % (0.0-10.0) H 10/06/17 06:56 Eos % (Auto) 1.3 % (0.0-4.0) 10/06/17 06:56 Baso % (Auto) 0.3 % (0.0-2.0) 10/06/17 06:56 Neut # (Auto) 3.3 K/uL (1.8-7.0) 10/06/17 06:56 Lymph # (Auto) 2.0 K/uL (1.0-4.3) 10/06/17 06:56 [place] # (Auto) 0.8 K/uL (0.0-0.8) 10/06/17 06:56 Eos # (Auto) 0.1 K/uL (0.0-0.7) 10/06/17 06:56 Baso # (Auto) 0.0 K/uL (0.0-0.2) 10/06/17 06:56 PT 11.3 SECONDS (9.7-12.2) 10/04/17 17:15 INR 1.0 10/04/17 17:15 APTT 31 SECONDS (21-34) 10/04/17 17:15 Sodium 144 mmol/L (132-148) 10/06/17 06:56 Potassium 3.9 mmol/L (3.6-5.2) 10/06/17 06:56 Chloride 109 mmol/L (98-107) H 10/06/17 06:56 Carbon Dioxide 26 mmol/L (22-30) 10/06/17 06:56 Anion Gap 13 (10-20) 10/06/17 06:56 BUN < 2 mg/dL (7-17) L 10/06/17 06:56 Creatinine 0.4 mg/dL (0.7-1.2) L 10/06/17 06:56 Est GFR ( Amer) > 60 10/06/17 06:56 Est GFR (Non-Af Amer) > 60 10/06/17 06:56 POC Glucose (mg/dL) 109 mg/dL (65-110) 10/04/17 15:54 Random Glucose 95 mg/dL (65-105) 10/06/17 06:56 Calcium 8.3 mg/dl (8.6-10.4) L 10/06/17 06:56 Phosphorus 2.2 mg/dL (2.5-4.5) L 10/06/17 06:56 Magnesium 1.9 mg/dL (1.6-2.3) 10/06/17 06:56 Total Bilirubin 0.4 mg/dL (0.2-1.3) 10/06/17 06:56 AST 28 U/L (14-36) 10/06/17 06:56 ALT 27 U/L (9-52) 10/06/17 06:56 Alkaline Phosphatase 92 U/L (38-126) 10/06/17 06:56 Total Protein 5.5 g/dL (6.3-8.3) L 10/06/17 06:56 Albumin 2.9 g/dL (3.5-5.0) L 10/06/17 06:56 Globulin 2.6 gm/dL (2.2-3.9) 10/06/17 06:56 Albumin/Globulin Ratio 1.1 (1.0-2.1) 10/06/17 06:56 Lipase 35 U/L (23-300) 10/04/17 17:15 Urine Color Yellow (YELLOW) 10/04/17 17:58 Urine Clarity Clear (Clear) 10/04/17 17:58 Urine pH 7.0 (5.0-8.0) 10/04/17 17:58 Ur Specific [place] 1.002 (1.003-1.030) L 10/04/17 17:58 Urine Protein Negative mg/dL (NEGATIVE) 10/04/17 17:58 Urine Glucose (UA) Normal mg/dL (Normal) 10/04/17 17:58 Urine Ketones Negative mg/dL (NEGATIVE) 10/04/17 17:58 Urine Blood Negative (NEGATIVE) 10/04/17 17:58 Urine Nitrate Negative (NEGATIVE) 10/04/17 17:58 Urine Bilirubin Negative (NEGATIVE) 10/04/17 17:58 Urine Urobilinogen Normal mg/dL (0.2-1.0) 10/04/17 17:58 Ur Leukocyte Esterase Neg [place]/uL (Negative) 10/04/17 17:58 Urine WBC (Auto) 1 /hpf (0-5) 10/04/17 17:58 Urine RBC (Auto) < 1 /hpf (0-3) 10/04/17 17:58 Ur Squamous Epith Cells 4 /hpf (0-5) 10/04/17 17:58 Urine Bacteria Occ (<OCC) H 10/04/17 17:58 Blood Type O POSITIVE 10/04/17 17:15 Antibody Screen Negative 10/04/17 17:15 Discharge Exam - Head Exam Head Exam: ATRAUMATIC, NORMAL INSPECTION Discharge Plan - Follow Up Plan Condition: FAIR Disposition: HOME/ ROUTINE Instructions: Hypokalemia (DC), Nausea and Vomiting, Adult (DC), Generalized Weakness (DC), Gallstones (DC) Additional Instructions: Actigall 300mg BID Referrals: Rashad Carmona MD [Staff Provider] -
--- NOTE | 2017-10-07 20:27 | DS ---
Copied To: Rashad Carmona MD Attending MD: Rashad Carmona MD The patient was discharged today. The patient is improving. ADMISSION DIAGNOSIS: Nausea and vomiting. DISCHARGE DIAGNOSES: 1. Intractable nausea and vomiting, most likely gastric motility disorder. 2. Depression. 3. Cholelithiasis. 4. Dehydration. HISTORY OF PRESENT ILLNESS: The patient was treated. She improved. She felt better. Her electrolytes were corrected. She feels much better. She is afebrile and is here for discharge. PHYSICAL EXAMINATION: VITAL SIGNS: BP 149/99, pulse 88, respiratory rate 20, and temperature 98.4. LUNGS: Clear. CVS: S1, S2 regular. ABDOMEN: Soft. ASSESSMENT: 1. Cholelithiasis. 2. Intractable nausea and vomiting. 3. Dehydration. 4. Gastritis. PLAN: See detailed orders. The patient is discharged. Rashad Carmona MD
== END 2017-10-06 19:20 | disposition home or self-care (01) | DRG 446 ==
LOC: C.ER 15:39 → C.9E 21:29 → C.9I 23:36 → OBSVTOIN 10-05 12:32 → C.6T 10-05 17:17
PROVIDERS: ADMIT Internal Medicine; ATTEND Internal Medicine
DX: K80.20 Calculus of gallbladder without cholecystitis without obstruction (principal); E86.0 Dehydration; E87.6 Hypokalemia; F10.10 Alcohol abuse, uncomplicated; F17.210 Nicotine dependence, cigarettes, uncomplicated; F41.9 Anxiety disorder, unspecified; F32.9 Major depressive disorder, single episode, unspecified; K22.4 Dyskinesia of esophagus; K21.9 Gastro-esophageal reflux disease without esophagitis; K59.09 Other constipation; Z98.890 Other specified postprocedural states; Q40.2 Other specified congenital malformations of stomach

== ENCOUNTER 2017-10-10 17:08 | Observation (INO) | payer MEDICARE ==
[2017-10-10 17:26] VITALS: BMI 24.0
[2017-10-10 18:00] LABS: BASO % 0.4 % (0.0-2.0); EOS # 0.1 K/uL (0.0-0.7); EOS % 0.8 % (0.0-4.0); HEMOGLOBIN 14.4 g/dL (11.0-16.0); LYMPH # 2.1 K/uL (1.0-4.3); LYMPH % 22.8 % (20.0-40.0); MEAN CORPUSCULAR HGB CONC 34.3 g/dL (33.0-37.0); MEAN PLATELET VOLUME 8.3 fL (7.2-11.7); MONO # 0.9 K/uL (0.0-0.8); NEUT # 6.1 K/uL (1.8-7.0); NRBC % 0.1 % (0.0-2.0); RBC 4.11 Mil/uL (3.80-5.20); RED CELL DISTRIBUTION WIDTH 15.6 % (11.5-14.5); WHITE BLOOD COUNT 9.2 K/uL (4.8-10.8)
[2017-10-10 18:16] LABS: ALB/GLOB RATIO 1.1 (1.0-2.1); ALBUMIN 3.1 g/dL (3.5-5.0); ALT/SGPT 27 U/L (9-52); AST/SGOT 29 U/L (14-36); BLOOD UREA NITROGEN 6 mg/dL (7-17); CALCIUM 9.4 mg/dl (8.6-10.4); GFR NON-AFRICAN AMERICAN > 60; LIPASE 65 U/L (23-300)
--- NOTE | 2017-10-10 18:29 | C.PDOC ---
History Of Present Illness 62 year old female presents to the emergency department with complaints of vague abdominal discomfort, worsening peripheral neuropathy of the hands and feet, and worsening gait. Patient was discharged on 10-06-17 and was ambulating with a cane, she denies and falls or head injuries. She complains of constipation which has been ongoing for the last six days. Patient is known to be obsessive-compulsive and has a history of alcohol and cigarette abuse. She denies recent alcohol abuse. Time Seen by Provider: 10/10/17 17:32 Chief Complaint (Nursing): Weakness/Neurological Deficit History Per: Patient History/Exam Limitations: no limitations Onset/Duration Of Symptoms: Days (6), Worse Since (10-06-17) Current Symptoms Are (Timing): Still Present Past Medical History Reviewed: Historical Data, Nursing Documentation, Vital Signs Vital Signs: Last Vital Signs Temp 98.4 F 10/10/17 23:29 Pulse 93 H 10/10/17 23:29 Resp 20 10/10/17 23:29 BP 91/63 L 10/10/17 23:29 Pulse Ox 95 10/10/17 23:29 - Medical History PMH: Anemia, Depression Denies: Atrial Fibrillation, Cardia Arrhythmia, CHF, HTN, Hypercholesterolemia, Mitral Valve Prolapse, Peripheral Edema, Chronic Kidney Disease Surgical History: Appendectomy (1982) Denies: Pacemaker - [facility] Procedures EXCISION OF ASCENDING COLON, ENDO, DIAGN (07/09/17) EXCISION OF DESCENDING COLON, ENDO, DIAGN (07/09/17) EXCISION OF DUODENUM, ENDO, DIAGN (07/09/17) EXCISION OF ESOPHAGUS, ENDO, DIAGN (07/09/17) EXCISION OF STOMACH, ENDO, DIAGN (07/09/17) EXCISION OF TRANSVERSE COLON, ENDO, DIAGN (07/09/17) FLUOROSCOPY OF UPPER GI AND SMALL BOWEL USING OTHER CONTRAST (09/26/17) Family History: States: No Known Family Hx - Social History Hx Tobacco Use: Yes Hx Alcohol Use: Yes ("social") Hx Substance Use: No - Immunization History Hx Tetanus Toxoid Vaccination: No Hx Influenza Vaccination: No Hx Pneumococcal Vaccination: No Review Of Systems Except As Marked, All Systems Reviewed And Found Negative. Gastrointestinal: Positive for: Abdominal Pain, Constipation Neurological: Positive for: Numbness (peripheral neuropathy of the hands and feet.), Other (worsening gait) Physical Exam - Physical Exam Appears: Non-toxic, No Acute Distress, Other (bizarre) Skin: Warm, Dry Head: Atraumatic, Normacephalic Eye(s): bilateral: Normal Inspection Neck: Normal, Supple Chest: Symmetrical Cardiovascular: Rhythm Regular, No Murmur Respiratory: Normal Breath Sounds, No Rales, No Rhonchi, No Wheezing Gastrointestinal/Abdominal: Soft, No Tenderness, No Distention, No Guarding, No Rebound Extremity: Normal ROM (all extremities) Neurological/Psych: Oriented x3, Normal Speech, Normal Cognition, Other (normal earth moving machine operator) Gait: With Assistance ED Course And Treatment - Laboratory Results Result Diagrams: 10/10/17 17:53 10/10/17 17:53 O2 Sat by Pulse Oximetry: 100 (RA) Pulse Ox Interpretation: Normal Medical Decision Making Medical Decision Makin10-04-17, patient presented with abdominal discomfort related to constipation. Normal US Abdomen, normal EGD. Peripheral neuropathy has been addressed in multiple prior admissions. Plan: EKG Alcohol Serum CMP Drug Screen Lipase Magnesium Troponin I CBC XR Obstructive Series HCG Qualitative Urine Urinalysis Disposition Doctor Will See Patient In The: Hospital Counseled Patient/Family Regarding: Studies Performed, Diagnosis - Disposition Disposition: HOSPITALIZED Disposition Time: 18:50 Condition: GOOD - Clinical Impression Clinical Impression: Gait apraxia, Generalized colicky abdominal pain, Intermittent paresthesia of hand and foot - Scribe Statement The provider has reviewed the documentation as recorded by the Scribe (Nicanor Manrique) Provider Attestation: All medical record entries made by the Scribe were at my direction and personally dictated by me. I have reviewed the chart and agree that the record accurately reflects my personal performance of the history, physical exam, medical decision making, and the department course for this patient. I have also personally directed, reviewed, and agree with the discharge instructions and disposition.
--- NOTE | 2017-10-10 18:45 | C.PDOC ---
Time Seen by Provider: 10/10/17 17:32 Chief Complaint (Nursing): Weakness/Neurological Deficit Past Medical History Vital Signs: Last Vital Signs Temp 98.4 F 10/10/17 17:24 Pulse 104 H 10/10/17 17:24 Resp 19 10/10/17 17:24 BP 101/75 10/10/17 17:24 Pulse Ox 100 10/10/17 17:24 - Medical History PMH: Anemia, Depression Denies: Atrial Fibrillation, Cardia Arrhythmia, CHF, HTN, Hypercholesterolemia, Mitral Valve Prolapse, Peripheral Edema, Chronic Kidney Disease Surgical History: Appendectomy (1982) Denies: Pacemaker - [facility] Procedures EXCISION OF ASCENDING COLON, ENDO, DIAGN (07/09/17) EXCISION OF DESCENDING COLON, ENDO, DIAGN (07/09/17) EXCISION OF DUODENUM, ENDO, DIAGN (07/09/17) EXCISION OF ESOPHAGUS, ENDO, DIAGN (07/09/17) EXCISION OF STOMACH, ENDO, DIAGN (07/09/17) EXCISION OF TRANSVERSE COLON, ENDO, DIAGN (07/09/17) FLUOROSCOPY OF UPPER GI AND SMALL BOWEL USING OTHER CONTRAST (09/26/17) Family History: States: Unknown Family Hx - Social History Hx Tobacco Use: Yes Hx Alcohol Use: Yes ("social") Hx Substance Use: No - Immunization History Hx Tetanus Toxoid Vaccination: No Hx Influenza Vaccination: No Hx Pneumococcal Vaccination: No ED Course And Treatment - Laboratory Results Lab Interpretation: Normal (normal Mg, trop neg.) Urine POC: Negative ECG: Interpreted By Me ECG Rhythm: Sinus Rhythm ECG Interpretation: Normal Rate From EC O2 Sat by Pulse Oximetry: 100 Pulse Ox Interpretation: Normal - Radiology CXR: Interpreted by Me CXR Interpretation: Yes: No Acute Disease - Other Rad abd x 2 X-Ray: Interpreted by Me (normal stool/gas pattern. PO contrast from the GI follow through study from 09/30/17 is noted in descending and sigmoid colon. Suggest very slow GI transit.) Reevaluation Time: 18:46 Reassessment Condition: Improved - Physician Consult Information Outcome Of Conversation: 1700, 1830: d/w Dr. Carmona- prior adm MD- ok to Med/ Surg Obs. No acute tx Medical Decision Making Medical Decision Making: slow abd transit times PO contrast noted in distal colon from 10 days ago gait apraxia poor and unstable gait with peripheral neuropathy per pt normal neuro exam of upper extremities normal hand dexterity normal head CT < 30 days Mg+ normal Deconditioning vs psychosomatic (extensive psych hx) normal neuro exam same complaint for years low susp of brain/spinal pathology Consider neuro/Psych consults. Disposition Doctor Will See Patient In The: Hospital Counseled Patient/Family Regarding: Studies Performed, Diagnosis - Disposition Disposition: HOSPITALIZED Disposition Time: 18:50 Condition: GOOD - Clinical Impression Clinical Impression: Gait apraxia, Generalized colicky abdominal pain
[2017-10-10 18:58] LABS: URINE BILIRUBIN NEGATIVE (NEGATIVE); URINE BLOOD NEGATIVE (NEGATIVE); URINE CLARITY Clear (Clear); URINE COLOR YELLOW (YELLOW); URINE GLUCOSE (UA) NEGATIVE (Normal); URINE PROTEIN NEGATIVE (NEGATIVE)
[2017-10-10 18:59] LABS: SQUAMOUS EPITHIAL 8 /hpf (0-5); URINE BACTERIA MOD (<OCC); URINE LEUKOCYTE ESTERASE 1+ Leu/uL (Negative)
[2017-10-10 19:08] LABS: BARBITURATES, UR NEGATIVE (NEGATIVE); BENZODIAZEPINES, UR NEGATIVE (NEGATIVE); OPIATES, UR NEGATIVE (NEGATIVE); PHENCYCLIDINE, UR NEGATIVE (NEGATIVE)
[2017-10-10 22:27] VITALS: RESP 20
--- NOTE | 2017-10-11 09:06 | RAD ---
Date of service: 10/10/2017 PROCEDURE: Radiographs of the chest and abdomen (obstructive series) HISTORY: chronic abd colic COMPARISON: No prior. TECHNIQUE: AP radiograph of the chest, with upright and supine radiographs of the abdomen. FINDINGS: CHEST: Lungs: Clear. Cardiovascular: Normal size heart. No pulmonary vascular congestion. Pleura: No pleural fluid. No pneumothorax. Other findings: None. ABDOMEN AND PELVIS: Bowel: Unremarkable bowel gas pattern. Retained oral contrast material seen throughout the large bowel No evidence of mechanical obstruction. Free air: None. Bones: Unremarkable. Other findings: None. IMPRESSION: Unremarkable radiographs of chest and abdomen. No evidence of mechanical bowel obstruction.
[2017-10-11] MEDS: Enoxaparin 40 mg Syringe SC SCH (09:09)
[2017-10-11] MEDS: Pantoprazole 20 mg EC Tab PO SCH (09:09)
[2017-10-11 09:45] LABS: CALCIUM 8.9 mg/dl (8.6-10.4); GFR NON-AFRICAN AMERICAN > 60
[2017-10-11 09:46] LABS: BLOOD UREA NITROGEN 6 mg/dL (7-17)
--- NOTE | 2017-10-11 23:26 | CP.PCM.HP ---
Past Patient History - Past Medical History & Family History Past Medical History?: Yes - Past Social History Smoking Status: Current Some Days Smoker - CARDIAC Hx Atrial Fibrillation: No Hx Cardia Arrhythmia: No Hx Congestive Heart Failure: No Hx Hypercholesterolemia: No Hx Hypertension: No Hx Mitral Valve Prolapse: No Hx Pacemaker: No Hx Peripheral Edema: No - PULMONARY Hx Respiratory Disorders: No - NEUROLOGICAL Hx Neurological Disorder: No - HEENT Hx HEENT Problems: No Other/Comment: Wears Eyeglasses for reading - RENAL Hx Chronic Kidney Disease: No - ENDOCRINE/METABOLIC Hx Endocrine Disorders: No - HEMATOLOGICAL/ONCOLOGICAL Hx Anemia: Yes - INTEGUMENTARY Hx Dermatological Problems: No - MUSCULOSKELETAL/RHEUMATOLOGICAL Hx Falls: Yes - GASTROINTESTINAL Hx Gastrointestinal Disorders: Yes Other/Comment: H/O RUPTURED AP, EXPLOR LAP DONE - GENITOURINARY/GYNECOLOGICAL Hx Genitourinary Disorders: No Other/Comment: kidney stones - PSYCHIATRIC Hx Depression: Yes Hx Substance Use: No - SURGICAL HISTORY Hx Appendectomy: Yes (1982) - ANESTHESIA Hx Anesthesia: Yes Hx Anesthesia Reactions: No Hx Malignant Hyperthermia: No Meds Allergies/Adverse Reactions: Allergies Allergy/AdvReac Type Severity Reaction Status Date / Time shrimp Allergy SWELLING Verified 10/10/17 17:24 Results - Vital Signs Recent Vital Signs: Last Vital Signs Temp 98.2 F 10/11/17 15:58 Pulse 86 10/11/17 15:58 Resp 20 10/11/17 15:58 BP 128/86 10/11/17 15:58 Pulse Ox 98 10/11/17 15:58 - Labs Result Diagrams: 10/10/17 17:53 10/11/17 09:19 Labs: Laboratory Results - last 24 hr 10/11/17 09:19 Sodium 140 Potassium 3.8 Chloride 104 Carbon Dioxide 23 Anion Gap 17 BUN 6 L Creatinine 0.4 L Est GFR ( Amer) > 60 Est GFR (Non-Af Amer) > 60 Random Glucose 99 Calcium 8.9
--- NOTE | 2017-10-12 06:47 | HP ---
Copied To: Rashad Carmona MD Attending MD: Rashad Carmona MD CHIEF COMPLAINT: Tingling and numbness of entire body. HISTORY OF PRESENT ILLNESS: This is a 62-year-old female with history of some depression, psychosis, anxiety, insomnia, cholelithiasis, and multiple hospitalization for past few months with recurrent nausea, vomiting, and other related complaints. She was discharged from [facility] less than a week ago after she was treated for nausea, vomiting, she went home. On the day of admission, she developed severe tingling and paresthesias of entire body, it is on both sides, started from neck all the way down. She denies any weakness. She denies having any difficulty walking. She denies any tingling, numbness in the feet. She is not able to describe her symptoms further. She denies any history of facial droop. She denies any history of headache, dizziness; she gets vertigo chronically but she denies any vertigo since yesterday and today. She denied any history of fall, loss of consciousness. She denies any history of seizure like activity or tongue bite. She denies any history of head injury. She denies any history of nausea, vomiting. She denies any history polyuria, polydipsia or polyphagia. She denies any history of hematuria, pyuria. She denies any sneezing, itchy eyes, itchy rash, and there is no history of rash. She denies any recent alcohol or tobacco use, however, she used to smoke and drink in the past. PAST MEDICAL HISTORY: Depression. SOCIAL HISTORY: Nonsmoker, non-ETOH user. CURRENT MEDICATIONS: At home ursodiol, Seroquel, Protonix, Antivert. PHYSICAL EXAMINATION: GENERAL: An elderly female, in no acute distress. She is ambulating with no abnormality, and she denies any chest pain. VITAL SIGNS: Blood pressure 140/88, pulse 95, respiratory rate 20, temperature 98. SKIN: No rashes. No bruits. No purpura. No petechiae. HEENT: Head is atraumatic and normocephalic. Negative pallor. Negative jaundice. Extraocular movements are intact. NECK: Supple. No JVD. No lymph node. No thyromegaly. No carotid bruits. CHEST WALL: Bilaterally symmetrical expansion. LUNGS: Bilaterally clear. No rales. No rhonchi. CVS: S1 and S2 regular. ABDOMEN: Soft and nontender. Bowel sounds are positive. RECTAL: No masses. No bleeding. PELVIC: No tenderness. No discharge. EXTREMITIES: No clubbing, cyanosis, or edema. CENTRAL NERVOUS SYSTEM: Awake, alert and oriented x3. Cranial nerves II through XII are normal. Power 5/5 x4. Plantars are downgoing bilaterally. Deep tendon reflexes including ankle jerk, knee jerk are normal. ASSESSMENT: 1. Tingling, numbness, and paresthesias of the entire body, most likely it is a anxiety depression, unlikely to be neuropathy or stroke. 2. Major depressive psychosis. 3. Hypokalemia. PLAN: Admit. Detailed orders written. Seen and examined. Rashad Carmona MD
[2017-10-12] MEDS: Pantoprazole 20 mg EC Tab PO SCH (10:45)
[2017-10-12] MEDS: Enoxaparin 40 mg Syringe SC SCH (10:46)
--- NOTE | 2017-10-12 15:42 | MRI ---
Date of service: 10/12/2017 PROCEDURE: MRI BRAIN WITHOUT CONTRAST HISTORY: numbness face ataxia COMPARISON: Noncontrast head CT from 09/28/2017 TECHNIQUE: Multiplanar, multisequence MR images of the brain were obtained without intravenous contrast enhancement. FINDINGS: HEMORRHAGE: None DWI: No evidence of an acute or early subacute infarction. BRAIN PARENCHYMA: There are moderate chronic microangiopathic changes. There is no mass, mass effect or abnormal extra-axial fluid collection. There is no territorial infarction. The midline sagittal structures are normal. VENTRICLES: There is mild age-related global parenchymal volume loss and proportionate enlargement of the ventricles and cortical sulci. CRANIUM: There is normal bone marrow signal pattern. ORBITS: The right orbit is unremarkable. 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 PARANASAL SINUSES/MASTOIDS: There is mild polypoid mucosal thickening in the right maxillary sinus. The remaining included paranasal sinuses are predominantly clear. VASCULAR SYSTEM: Gross signal voids OTHER FINDINGS: None. IMPRESSION: No acute intracranial abnormality. Moderate chronic microangiopathic changes and mild age-related global parenchymal volume loss.
[2017-10-12 16:05] VITALS: BP 134/92; PULSE 101; TEMP 98.7; O2SAT 95
--- NOTE | 2017-10-12 17:09 | CP.PCM.PN ---
Subjective - Date & Time of Evaluation Date of Evaluation: 10/12/17 Time of Evaluation: 17:09 Objective - Vital Signs/Intake and Output Vital Signs (last 24 hours): Temp Pulse Resp BP Pulse Ox 98.7 F 101 H 20 134/92 H 95 10/12/17 15:04 10/12/17 15:04 10/12/17 15:04 10/12/17 15:04 10/12/17 15:04 - Medications Medications: Current Medications Enoxaparin Sodium (Lovenox) 40 mg SC DAILY [facility] Last Admin: 10/12/17 10:46 Dose: 40 mg Gabapentin (Neurontin) 300 mg PO BID [facility] Last Admin: 10/12/17 17:01 Dose: 300 mg Meclizine HCl (Antivert) 12.5 mg PO DAILY [facility] Last Admin: 10/12/17 10:45 Dose: 12.5 mg Pantoprazole Sodium (Protonix Ec Tab) 20 mg PO DAILY [facility] Last Admin: 10/12/17 10:45 Dose: 20 mg Quetiapine Fumarate (Seroquel) 100 mg PO HS [facility] Last Admin: 10/11/17 21:16 Dose: 100 mg Ursodiol (Actigall) 300 mg PO BID [facility] Last Admin: 10/12/17 17:01 Dose: 300 mg Zolpidem Tartrate (Ambien) 5 mg PO HS PRN PRN Reason: Insomnia Last Admin: 10/11/17 21:16 Dose: 5 mg - Labs Labs: 10/10/17 17:53 10/11/17 09:19 Assessment and Plan - Assessment and Plan (Free Text) Assessment: 62 year old female admitted with ataxia, numbness to hands and legs, seen and examined. Alert and orientedx3, able to ambulate with cane. Seen by DR Oropeza, MRI of the brain is negative for any acute changes. Cleared for discharge home on neurontin for possible peripheral neuropathy. Discussed with DR Carmona, plan to discharge home on neurontin bid. Advised to follow up with PMD in 1 week and with neurologyst in 1 -2 weeks.
--- NOTE | 2017-10-12 22:19 | CP.PCM.DIS ---
Provider - Provider Date of Admission: 10/10/17 18:51 Attending physician: Rashad Carmona MD Hospital Course - Lab Results Lab Results: Most Recent Lab Values WBC 9.2 K/uL (4.8-10.8) 10/10/17 17:53 RBC 4.11 Mil/uL (3.80-5.20) 10/10/17 17:53 Hgb 14.4 g/dL (11.0-16.0) 10/10/17 17:53 Hct 41.9 % (34.0-47.0) 10/10/17 17:53 MCV 102.0 fL (81.0-99.0) H 10/10/17 17:53 MCH 35.0 pg (27.0-31.0) H 10/10/17 17:53 MCHC 34.3 g/dL (33.0-37.0) 10/10/17 17:53 RDW 15.6 % (11.5-14.5) H 10/10/17 17:53 Plt Count 296 K/uL (130-400) 10/10/17 17:53 MPV 8.3 fL (7.2-11.7) 10/10/17 17:53 Neut % (Auto) 66.0 % (50.0-75.0) 10/10/17 17:53 Lymph % (Auto) 22.8 % (20.0-40.0) 10/10/17 17:53 Mckenzie % (Auto) 10.0 % (0.0-10.0) 10/10/17 17:53 Eos % (Auto) 0.8 % (0.0-4.0) 10/10/17 17:53 Baso % (Auto) 0.4 % (0.0-2.0) 10/10/17 17:53 Neut # (Auto) 6.1 K/uL (1.8-7.0) 10/10/17 17:53 Lymph # (Auto) 2.1 K/uL (1.0-4.3) 10/10/17 17:53 Mckenzie # (Auto) 0.9 K/uL (0.0-0.8) H 10/10/17 17:53 Eos # (Auto) 0.1 K/uL (0.0-0.7) 10/10/17 17:53 Baso # (Auto) 0.0 K/uL (0.0-0.2) 10/10/17 17:53 Sodium 140 mmol/L (132-148) 10/11/17 09:19 Potassium 3.8 mmol/L (3.6-5.2) 10/11/17 09:19 Chloride 104 mmol/L (98-107) 10/11/17 09:19 Carbon Dioxide 23 mmol/L (22-30) 10/11/17 09:19 Anion Gap 17 (10-20) 10/11/17 09:19 BUN 6 mg/dL (7-17) L 10/11/17 09:19 Creatinine 0.4 mg/dL (0.7-1.2) L 10/11/17 09:19 Est GFR ( Amer) > 60 10/11/17 09:19 Est GFR (Non-Af Amer) > 60 10/11/17 09:19 Random Glucose 99 mg/dL (65-105) 10/11/17 09:19 Calcium 8.9 mg/dl (8.6-10.4) 10/11/17 09:19 Magnesium 1.7 mg/dL (1.6-2.3) 10/10/17 17:53 Total Bilirubin 0.5 mg/dL (0.2-1.3) 10/10/17 17:53 AST 29 U/L (14-36) 10/10/17 17:53 ALT 27 U/L (9-52) 10/10/17 17:53 Alkaline Phosphatase 103 U/L (38-126) 10/10/17 17:53 Troponin I < 0.0120 ng/mL (0.00-0.120) 10/10/17 17:53 Total Protein 5.8 g/dL (6.3-8.3) L 10/10/17 17:53 Albumin 3.1 g/dL (3.5-5.0) L 10/10/17 17:53 Globulin 2.7 gm/dL (2.2-3.9) 10/10/17 17:53 Albumin/Globulin Ratio 1.1 (1.0-2.1) 10/10/17 17:53 Lipase 65 U/L (23-300) 10/10/17 17:53 Urine Color Yellow (YELLOW) 10/10/17 18:46 Urine Clarity Clear (Clear) 10/10/17 18:46 Urine pH 6.0 (5.0-8.0) 10/10/17 18:46 Ur Specific [place] 1.008 (1.003-1.030) 10/10/17 18:46 Urine Protein Negative mg/dL (NEGATIVE) 10/10/17 18:46 Urine Glucose (UA) Negative mg/dL (Normal) 10/10/17 18:46 Urine Ketones Negative mg/dL (NEGATIVE) 10/10/17 18:46 Urine Blood Negative (NEGATIVE) 10/10/17 18:46 Urine Nitrate Negative (NEGATIVE) 10/10/17 18:46 Urine Bilirubin Negative (NEGATIVE) 10/10/17 18:46 Urine Urobilinogen 4.0 mg/dL (0.2-1.0) H 10/10/17 18:46 Ur Leukocyte Esterase 1+ [place]/uL (Negative) H 10/10/17 18:46 Urine WBC (Auto) 11 /hpf (0-5) H 10/10/17 18:46 Urine RBC (Auto) 5 /hpf (0-3) H 10/10/17 18:46 Ur Squamous Epith Cells 8 /hpf (0-5) H 10/10/17 18:46 Urine Bacteria Mod (<OCC) H 10/10/17 18:46 Urine Opiates Screen Negative (NEGATIVE) 10/10/17 18:46 Urine Methadone Screen Negative (NEGATIVE) 10/10/17 18:46 Ur Barbiturates Screen Negative (NEGATIVE) 10/10/17 18:46 Ur Phencyclidine Scrn Negative (NEGATIVE) 10/10/17 18:46 Ur Amphetamines Screen Negative (NEGATIVE) 10/10/17 18:46 U Benzodiazepines Scrn Negative (NEGATIVE) 10/10/17 18:46 U Oth Cocaine Metabols Negative (NEGATIVE) 10/10/17 18:46 U Cannabinoids Screen Negative (NEGATIVE) 10/10/17 18:46 Alcohol, Quantitative < 10 mg/dl (0-10) 10/10/17 17:53 Discharge Plan - Discharge Medications Prescriptions: Gabapentin [Neurontin] 300 mg PO BID #60 cap - Follow Up Plan Condition: GOOD Disposition: HOME/ ROUTINE Instructions: Acute Abdomen (Belly Pain), Adult (DC), Apraxia (DC) Referrals: Patrick Oropeza MD [Staff Provider] - Rashad Carmona MD [Staff Provider] -
--- NOTE | 2017-10-12 23:31 | CON ---
Copied To: Branden Oropeza MD Attending MD: Branden Oropeza MD DATE: 10/12/2017 HISTORY OF PRESENT ILLNESS: This is a 62-year-old female with past medical history of anxiety, depression and had multiple hospitalizations, recently discharged from the hospital, and now came back with a complaint of severe tingling and paresthesia of all the body including face and both upper and lower extremities and has a difficulty walking and numbness in the feet. Denies any headache, dizziness, or vertigo. No history of seizure. PAST MEDICAL HISTORY: Depression. SOCIAL HISTORY: Does not smoke. Does not drink. CURRENT MEDICATIONS: Seroquel and Antivert. REVIEW OF SYSTEMS: Ten-point review of systems is negative except for numbness and tingling in all over the body. PHYSICAL EXAMINATION: HEENT: Normocephalic and atraumatic. NECK: Supple. NEURO EXAM: Alert, awake, and oriented x3. No aphasia. Cranial nerves II-XII are tested. Pupils reactive. EOM intact. Visual redd are full. No facial asymmetry. Tongue is midline. Motor examination: Moves all the extremities equally. Tone normal. Deep tendon reflexes 1+. Both plantars downgoing. Sensory appears intact. Cerebellar, no dysmetria. Gait, difficulty in ambulating, apraxic gait. IMPRESSION: Gait ataxia, possibly secondary to neuropathy, depression, and hypokalemia. PLAN: We will add gabapentin 300 mg twice a day and physical therapy for ambulation. We will do an MRI of the lumbosacral spine. Branden Oropeza MD
--- NOTE | 2017-10-13 16:52 | CARD ---
APPROVED REPORT Date of service: 10/10/2017 EKG Measurement Heart [id number] CT [id number] <Conclusion> Normal sinus rhythm Low voltage QRS Borderline ECG
--- NOTE | 2017-10-13 20:18 | DS ---
Copied To: Rashad Carmona MD Attending MD: Rashad Carmona MD ADMISSION DIAGNOSES: Tingling and paresthesias of entire body. DISCHARGE DIAGNOSES: Major depressive psychosis, hypokalemia. HOSPITAL COURSE: This is a 62-year-old female with a history of abdominal pain, nausea, vomiting, and gallstones, and now, the patient developed acute tingling, numbness, and paresthesias of entire body, both right side and left side, all the four extremities. She came to the emergency room, her potassium was low which has been replaced. The patient is feeling better, and she is being discharged. PHYSICAL EXAMINATION: VITAL SIGNS: Blood pressure 134/92, pulse 101, respiratory rate 20, temperature 98.7. LUNGS: Clear. CARDIOVASCULAR: S1, S2 regular. ABDOMEN: Soft. ASSESSMENT: 1. Most likely it is a conversion reaction. 2. Dehydration and hypokalemia. 3. Major depression and psychosis. PLAN: Admit. Detailed orders written. Seen and examined. Rashad Carmona MD
== END 2017-10-12 18:50 | disposition home or self-care (01) ==
LOC: C.ER 17:08 → C.9E 18:51 → UNDOADMIN 18:51 → C.3T 21:51
PROVIDERS: ADMIT Internal Medicine; ATTEND Internal Medicine
DX: R26.0 Ataxic gait (principal); G62.9 Polyneuropathy, unspecified; F44.9 Dissociative and conversion disorder, unspecified; F32.3 Major depressive disorder, single episode, severe with psychotic features; R10.84 Generalized abdominal pain; E86.0 Dehydration; E87.6 Hypokalemia; F17.200 Nicotine dependence, unspecified, uncomplicated; K59.00 Constipation, unspecified; Z87.442 Personal history of urinary calculi
CPT/HCPCS: 36415; 70551; 74022; 80048; 80053; 81001; 83690; 83735; 84484; 85025; 93005; 99285; G0378; G0480; J1650

== ENCOUNTER 2017-10-28 06:50 | Emergency (ER) | payer MEDICARE ==
[2017-10-28 06:51] VITALS: BMI 24.0
[2017-10-28 07:05] VITALS: TEMP 98.4; O2SAT 97
--- NOTE | 2017-10-28 07:36 | C.PDOC ---
History Of Present Illness 62 y/o female, w/PMhx of neurological issues in which body is numb, presents to the ER complaining of right hip pain which began after she fell and injured her right hip at home. Patient states that she has pain with walking. Patient reports that she usually uses a cane to walk. Denies having LOC, headache, and dizziness. Time Seen by Provider: 10/28/17 07:26 Chief Complaint (Nursing): Lower Extremity Problem/Injury History Per: Patient History/Exam Limitations: no limitations Onset/Duration Of Symptoms: Hrs Current Symptoms Are (Timing): Still Present Severity: Moderate - Hip Description Of Injury: Fell Past Medical History Reviewed: Historical Data, Nursing Documentation, Vital Signs Vital Signs: Last Vital Signs Temp 98.4 F 10/28/17 06:56 Pulse 101 H 10/28/17 06:56 Resp 16 10/28/17 06:56 BP 125/81 10/28/17 06:56 Pulse Ox 97 10/28/17 09:07 - Medical History PMH: Anemia, Depression Denies: Atrial Fibrillation, Cardia Arrhythmia, CHF, HTN, Hypercholesterolemia, Mitral Valve Prolapse, Peripheral Edema, Chronic Kidney Disease Surgical History: Appendectomy (1982) Denies: Pacemaker - [facility] Procedures EXCISION OF ASCENDING COLON, ENDO, DIAGN (07/09/17) EXCISION OF DESCENDING COLON, ENDO, DIAGN (07/09/17) EXCISION OF DUODENUM, ENDO, DIAGN (07/09/17) EXCISION OF ESOPHAGUS, ENDO, DIAGN (07/09/17) EXCISION OF STOMACH, ENDO, DIAGN (07/09/17) EXCISION OF TRANSVERSE COLON, ENDO, DIAGN (07/09/17) FLUOROSCOPY OF UPPER GI AND SMALL BOWEL USING OTHER CONTRAST (09/26/17) Family History: States: No Known Family Hx - Social History Hx Tobacco Use: Yes Hx Alcohol Use: Yes ("social") Hx Substance Use: No - Immunization History Hx Tetanus Toxoid Vaccination: No Hx Influenza Vaccination: No Hx Pneumococcal Vaccination: No Review Of Systems Except As Marked, All Systems Reviewed And Found Negative. Constitutional: Negative for: Fever, Chills Musculoskeletal: Positive for: Other (right hip pain) Neurological: Negative for: Weakness Physical Exam - Physical Exam Appears: Non-toxic, No Acute Distress Skin: Normal Color, Warm, Dry Head: Atraumatic, Normacephalic Eye(s): bilateral: Normal Inspection Nose: Normal Oral Mucosa: Moist Neck: Supple Chest: Symmetrical Cardiovascular: Rhythm Regular Respiratory: Normal Breath Sounds, No Rales, No Rhonchi, No Wheezing Gastrointestinal/Abdominal: Normal Exam, Soft, No Tenderness, No Guarding, No Rebound Extremity: Normal ROM, Tenderness (tenderness to lateral aspect of right hip), No Deformity Neurological/Psych: Oriented x3, Normal Speech Gait: Steady ED Course And Treatment O2 Sat by Pulse Oximetry: 97 (RA) Pulse Ox Interpretation: Normal - Other Rad No standard instances X-Ray: Interpreted by Me Interpretation: Right hip/Pelvis (-) fx. Right femur (-) fx Progress Note: Treated with motrin 600 mg PO. On re-evaluation ambulating with cane, in no distress Reassessment Condition: Improved Medical Decision Making Medical Decision Making: Plan: --Motrin PO --X-Ray -Hip --X-Ray- Femur Disposition Counseled Patient/Family Regarding: Studies Performed, Diagnosis, Need For Followup, Rx Given - Disposition Referrals: [facility] [place] [Outside] Disposition: HOME/ ROUTINE Disposition Time: 09:20 Condition: STABLE Additional Instructions: Follow up with neurology tomorrow for further evaluation Prescriptions: Naproxen [Naprosyn] 1 tab PO BID PRN #25 tab PRN Reason: Pain Instructions: Muscle Strain (DC), Hip Pain Forms: [facility] (Djiboutian) - POA Present On Arrival: None - Clinical Impression Clinical Impression: Muscle strain - PA / MEDICAL DIRECTOR / Resident Statement MD/DO has reviewed & agrees with the documentation as recorded. - Scribe Statement The provider has reviewed the documentation as recorded by the Miranda Montague Provider Attestation All medical record entries made by the Miranda were at my direction and personally dictated by me. I have reviewed the chart and agree that the record accurately reflects my personal performance of the history, physical exam, medical decision making, and the department course for this patient. I have also personally directed, reviewed, and agree with the discharge instructions and disposition.
[2017-10-28 09:45] VITALS: BP 120/82; PULSE 82; RESP 18
--- NOTE | 2017-10-28 10:27 | RAD ---
Date of service: 10/28/2017 PROCEDURE: Right Femur Radiographs. HISTORY: fall COMPARISON: None. TECHNIQUE: AP and Lateral Radiographs of the right femur. FINDINGS: FEMUR: No acute fracture or destructive bony lesion identified. SOFT TISSUES: Normal. OTHER FINDINGS: None. IMPRESSION: Unremarkable radiographs of the right femur.
--- NOTE | 2017-10-28 10:29 | RAD ---
Date of service: 10/28/2017 PROCEDURE: RIGHT HIP WITH PELVIS RADIOGRAPHS HISTORY: fall COMPARISON: Abdomen pelvis CT with contrast 07/10/2017. TECHNIQUE: Frontal views of the pelvis or hip joint of been submitted with frog-leg lateral view right hip. FINDINGS: No acute fracture or destructive bony lesion identified including right hip and pelvis bony anatomy. [id number] degenerative cortical sclerosis appreciate the bilateral sacroiliac hip joints. Pubic bones appear intact including pubic symphysis. Phleboliths are nonfocal as well as the sacrum. Advanced degenerative facet arthropathy seen at the L5-S1 level. . IMPRESSION: No acute fracture or dislocation right hip or the pelvic ring.
== END 2017-10-28 09:45 | disposition home or self-care (01) ==
LOC: C.ER 06:50
DX: S76.011A Strain of muscle, fascia and tendon of right hip, initial encounter (principal); W19.XXXA Unspecified fall, initial encounter; Y92.009 Unspecified place in unspecified non-institutional (private) residence as the place of occurrence of the external cause

== ENCOUNTER 2018-02-24 08:11 | Outpatient (CLI) | payer MEDICARE | END 2018-02-24 08:12 | disposition home or self-care (01) | LOC: C.CARD 08:11 | DX: R06.02 Shortness of breath (principal); I10 Essential (primary) hypertension; R79.9 Abnormal finding of blood chemistry, unspecified ==